=== PATIENT | female | born 1960 | race American Indian/Alaskan Native ===

== ENCOUNTER 2016-09-17 23:45 | Emergency (ER) | payer MEDICAID, OTHER ==
[2016-09-18 00:23] LABS: CHLORIDE,CL 101 mmol/L (101-111); SODIUM,NA 138 mmol/L (135-145)
--- NOTE | 2016-09-18 00:46 | EDM.PDOC ---
ED HISTORY OF PRESENT ILLNESS - General Chief Complaint: Chest Pain Stated Complaint: IN BY AMBULANCE Time Seen by Provider: 09/18/16 00:05 Source of Information: Reports: Patient History Limitations: Reports: No limitations - History of Present Illness INITIAL COMMENTS - FREE TEXT/NARRATIVE: This 56 yo female patient was brought to the ED by [facility] due to chest pain with radiation to her left arm. The patient reports she was at home getting ready for bed when she noticed the chest pain. The patient went to the living room to sit down when she noticed pain going to her left arm and some tingling in her left hand. The patient called a family member and was advised to get to the hospital. Symptom Onset Date: 09/17/16 Symptom Onset Time: 22:30 Timing/Duration: Reports: Constant, Improving Severity: moderate Location, General: Reports: chest, upper extremity, left Quality: Reports: Ache, Dull Improves with: Reports: Medication (Nitro x3 and Morphine given by EMS) Worsens with: Reports: None Context, General: Reports: Other Associated Symptoms (General): Reports: chest pain - Related Data Allergies/ADRs: Allergies Allergy/AdvReac Type Severity Reaction Status Date / Time aspirin Allergy Nausea and Verified 09/17/16 23:53 Vomiting codeine Allergy Rash Verified 09/17/16 23:53 diphenhydramine Allergy Rash Verified 09/17/16 23:53 doxycycline Allergy Rash Verified 09/17/16 23:53 ketorolac tromethamine Allergy Anxiety Verified 09/17/16 23:53 [From Toradol] levofloxacin [From Levaquin] Allergy Rash Verified 09/17/16 23:53 metoclopramide HCl Allergy Anxiety Verified 09/17/16 23:53 [From Reglan] naproxen Allergy Rash Verified 09/17/16 23:53 sumatriptan [From Imitrex] Allergy Other Verified 09/17/16 23:53 sumatriptan succinate Allergy Other Verified 09/17/16 23:53 [From Imitrex] Home Meds: Home Meds Ascorbic Acid [Vitamin C] 1 tab PO DAILY 02/27/14 [History] Hydrochlorothiazide 25 mg PO DAILY 02/27/14 [History] Lisinopril 1 tab PO DAILY 02/27/14 [History] Omeprazole 1 tab PO BID 02/27/14 [History] Potassium Chloride [Klor-Con 10] 10 meq PO DAILY 09/17/16 [History] Past Medical History Cardiovascular History: Reports: Hypertension Gastrointestinal History: Reports: GERD Genitourinary History: Reports: Other (see below) Other Genitourinary History: left kidney removed Other OB/BYN History: complete hysterectomy Musculoskeletal History: Reports: Back pain, chronic - Past Surgical History GI Surgical History: Reports: Appendectomy, Cholecystectomy, Hernia, inguinal, Hernia repair/other Female Surgical History: Reports: Hysterectomy Social & Family History - Tobacco Use Smoking Status *Q: Never Smoker Years of Tobacco use: 15 Packs/Tins Daily: 0.2 Used Tobacco, but Quit: Yes Month Tobacco Last Used: Nov. See notes Second Hand Smoke Exposure: No - Alcohol Use Days Per Week of Alcohol Use: 0 Number of Drinks Per Day: 1 Total Drinks Per Week: 0 - Recreational Drug Use Recreational Drug Use: No ED ROS GENERAL - Review of Systems Review Of Systems: ROS reveals no pertinent complaints other than HPI. ED EXAM, GENERAL - Physical Exam Exam: See Below Exam Limited By: No limitations General Appearance: alert, WD/WN, anxious, moderate distress Eye Exam: bilateral eye: EOMI, normal inspection, PERRL Ears: normal external exam, normal canal, hearing grossly normal, normal TMs Nose: normal inspection, normal mucosa, no blood Throat/Mouth: Normal inspection, Normal lips, Normal teeth, Normal gums, Normal oropharynx, Normal voice, No airway compromise Head: atraumatic, normocephalic Neck: normal inspection, supple, non-tender, full range of motion Respiratory/Chest: no respiratory distress, lungs clear, normal breath sounds, no accessory muscle use, chest non-tender Cardiovascular: normal peripheral pulses, regular rate, rhythm, no edema, no gallop, no JVD, no murmur, no rub GI/Abdominal: normal bowel sounds, soft, non tender, no organomegaly, no distention, no abnormal bruit, no mass (Female) Exam: Deferred Rectal (Female) Exam: Deferred Back Exam: normal inspection, full range of motion, NT Extremities: normal inspection, normal range of motion, non-tender, normal capillary refill, no pedal edema Neurological: alert, oriented, CN II-XII intact, normal cognition, normal gait, normal reflexes, no motor/sensory deficits Psychiatric: normal affect, normal mood Skin Exam: Warm, Dry, Intact, Normal color, No rash Lymphatic: no adenopathy Course - Vital Signs Last Recorded V/S: Last Vital Signs Temp 37.0 C 09/18/16 01:11 Pulse 67 09/18/16 01:11 Resp 16 09/18/16 01:11 BP 100/58 L 09/18/16 01:11 Pulse Ox 100 09/18/16 01:11 - Orders/Labs/Meds Orders: Active Orders 24 hr Category Date Time Status EKG Documentation Completion [RC] ROUTINE Care 09/18/16 03:30 Active EKG Documentation Completion [RC] URGENT Care 09/17/16 23:45 Active Chest 1V Frontal [CR] Urgent Exams 09/18/16 00:07 Taken Labs: Laboratory Tests 09/17/16 09/17/16 09/18/16 Range/Units 23:56 23:56 03:30 WBC 8.0 (5.0-10.0) 10^3/uL RBC 4.40 (4.2-5.4) 10^6/uL Hgb 12.6 (12.0-16.0) g/dL Hct 38.5 (37.0-47.0) % MCV 87.5 (80-100) fL MCH 28.6 (27.0-34.0) pg MCHC 32.7 L (33.0-35.0) g/dL Plt Count 257 (150-450) 10^3/uL Neut % (Auto) 55.0 (42.2-75.2) % Lymph % (Auto) 34.5 (20.5-50.1) % Garrett % (Auto) 6.4 (2-8) % Eos % (Auto) 3.3 H (1.0-3.0) % Baso % (Auto) 0.8 (0.0-1.0) % Sodium 138 (135-145) mmol/L Potassium 3.5 L (3.6-5.0) mmol/L Chloride 101 (101-111) mmol/L Carbon Dioxide 28.0 (21.0-31.0) mmol/L Anion Gap 12.5 BUN 11 (7-18) mg/dL Creatinine 0.9 (0.6-1.3) mg/dL Est Cr Clr Drug Dosing 52.67 mL/min Estimated GFR (MDRD) > 60 BUN/Creatinine Ratio 12.22 Glucose 114 H (74-105) mg/dL Calcium 8.5 (8.4-10.2) mg/dl Total Bilirubin 0.5 (0.2-1.0) mg/dL AST 22 (10-42) IU/L ALT 25 (10-60) IU/L Alkaline Phosphatase 60 (42-121) IU/L Troponin I < 0.02 < 0.02 (0.00-0.02) ng/ml Total Protein 7.2 (6.7-8.2) g/dl Albumin 3.9 (3.2-5.5) g/dl Globulin 3.3 Albumin/Globulin Ratio 1.18 Departure - Departure Time of Disposition: 04:00 Disposition: Home, Self-Care 01 Condition: fair Clinical Impression: Pleuritic pain, Non-cardiac chest pain Instructions: Nonspecific Chest Pain, [id number] Forms: ED Department Discharge Care Plan Goals: The patient was advised of the examination, lab, x-ray, EKG, repeat lab and repeat EKG results during the visit. The patient was encouraged to follow-up with her primary care facility for continued evaluation and further management. If the patient has any additional symptoms or concerns, the patient should follow-up with her primary care facility or return to the emergency department. - My Orders Last 24 Hours: My Active Orders 09/17/16 23:45 EKG Documentation Completion [RC] URGENT 09/18/16 00:07 Chest 1V Frontal [CR] Urgent 09/18/16 03:30 EKG Documentation Completion [RC] ROUTINE - Assessment/Plan Last 24 Hours: My Active Orders 09/17/16 23:45 EKG Documentation Completion [RC] URGENT 09/18/16 00:07 Chest 1V Frontal [CR] Urgent 09/18/16 03:30 EKG Documentation Completion [RC] ROUTINE
[2016-09-18 01:13] VITALS: BP 100/58
--- NOTE | 2016-09-21 12:11 | EKG ---
09/18/2016 - HAWK MONDRAGON - TIME OF EK hours. I reviewed the EKG and agree with the machine's reading. [facility] /[id number]
--- NOTE | 2016-09-21 12:11 | EKG ---
09/17/2016 - HAWK MONDRAGON - TIME: 2494. I reviewed the EKG and agree with the machine's reading. [facility] /[id number]
== END 2016-09-18 04:10 | disposition home or self-care (01) ==
LOC: DL.ED 23:45
DX: R07.81 Pleurodynia (principal); I10 Essential (primary) hypertension; K21.9 Gastro-esophageal reflux disease without esophagitis; Z90.710 Acquired absence of both cervix and uterus; Z79.899 Other long term (current) drug therapy; Z88.5 Allergy status to narcotic agent; Z88.8 Allergy status to other drugs, medicaments and biological substances; Z90.49 Acquired absence of other specified parts of digestive tract; Z88.6 Allergy status to analgesic agent
CPT/HCPCS: 36415; 71010; 80053; 84484; 85025; 93005; 99284

== ENCOUNTER 2017-03-13 20:33 | Emergency (ER) | payer MEDICAID, OTHER ==
[2017-03-13 21:31] VITALS: BP 124/73
== END 2017-03-13 23:15 | disposition left against medical advice (07) ==
LOC: DL.ED 20:33
DX: Z53.21 Procedure and treatment not carried out due to patient leaving prior to being seen by health care provider (principal)

== ENCOUNTER 2017-05-05 21:35 | Emergency (ER) | payer MEDICAID, OTHER ==
[2017-05-05 21:40] VITALS: BP 128/80
[2017-05-05] MEDS ORDERED: Clindamycin HCl 150 MG Cap PO ONE (21:53)
--- NOTE | 2017-05-05 21:58 | EDM.PDOC ---
ED HPI GENERAL MEDICAL PROBLEM - General Chief Complaint: Skin Complaint Stated Complaint: SOMETHING ON HAND, [id number] Time Seen by Provider: 05/05/17 21:54 Source of Information: Reports: Patient History Limitations: Reports: No Limitations - History of Present Illness INITIAL COMMENTS - FREE TEXT/NARRATIVE: got infection right index Right Hand Pain Score (Numeric/FACES): 6 - Related Data Allergies Allergy/AdvReac Type Severity Reaction Status Date / Time aspirin Allergy Nausea and Verified 05/05/17 21:40 Vomiting codeine Allergy Rash Verified 05/05/17 21:40 diphenhydramine Allergy Rash Verified 05/05/17 21:40 doxycycline Allergy Rash Verified 05/05/17 21:40 ketorolac tromethamine Allergy Anxiety Verified 05/05/17 21:40 [From Toradol] levofloxacin [From Levaquin] Allergy Rash Verified 05/05/17 21:40 metoclopramide HCl Allergy Anxiety Verified 05/05/17 21:40 [From Reglan] naproxen Allergy Rash Verified 05/05/17 21:40 sumatriptan [From Imitrex] Allergy Other Verified 05/05/17 21:40 sumatriptan succinate Allergy Other Verified 05/05/17 21:40 [From Imitrex] Home Meds: Home Meds Ascorbic Acid [Vitamin C] 1 tab PO DAILY 02/27/14 [History] Hydrochlorothiazide 25 mg PO DAILY 02/27/14 [History] Lisinopril 1 tab PO DAILY 02/27/14 [History] Omeprazole 1 tab PO BID 02/27/14 [History] Potassium Chloride [Klor-Con 10] 10 meq PO DAILY 09/17/16 [History] Past Medical History Cardiovascular History: Reports: Hypertension Gastrointestinal History: Reports: GERD Genitourinary History: Reports: Other (See Below) Other Genitourinary History: left kidney removed Other OB/BYN History: complete hysterectomy Musculoskeletal History: Reports: Back Pain, Chronic Neurological History: Reports: Migraines - Past Surgical History GI Surgical History: Reports: Appendectomy, Cholecystectomy, Hernia, Inguinal, Hernia Repair/Other Female Surgical History: Reports: Nephrectomy Social & Family History - Family History Family Medical History: Noncontributory - Tobacco Use Smoking Status *Q: Never Smoker Years of Tobacco use: 15 Packs/Tins Daily: 0.2 Used Tobacco, but Quit: Yes Month Tobacco Last Used: Second Hand Smoke Exposure: No - Caffeine Use Caffeine Use: Reports: Coffee - Alcohol Use Days Per Week of Alcohol Use: 0 Number of Drinks Per Day: 1 Total Drinks Per Week: 0 - Recreational Drug Use Recreational Drug Use: No ED ROS GENERAL - Review of Systems Review Of Systems: ROS reveals no pertinent complaints other than HPI. ED EXAM, SKIN/RASH Exam: See Below Exam Limited By: No Limitations General Appearance: Alert, WD/WN, No Apparent Distress Ears: Hearing Grossly Normal Throat/Mouth: Normal Voice, No Airway Compromise Head: Atraumatic Neck: Non-Tender, Full Range of Motion Respiratory/Chest: No Respiratory Distress Cardiovascular: Regular Rate, Rhythm GI/Abdominal: Soft, Non-Tender Extremities: Redness (right index cellulitis), Other Neurological: Alert, Oriented, Normal Cognition, Normal Gait, No Motor/Sensory Deficits Psychiatric: Normal Affect, Normal Mood Skin: Warm, Dry, Normal Color Location, Skin: Upper Extremity, Right Characteristics: Erythematous Associated features: Swelling, Inflammation Lymphatic: No Adenopathy Course - Vital Signs Last Recorded V/S: Last Vital Signs Temp 36.2 C 05/05/17 21:37 Pulse 83 05/05/17 21:37 Resp 18 05/05/17 21:37 BP 128/80 05/05/17 21:37 Pulse Ox 94 L 05/05/17 21:37 - Orders/Labs/Meds Orders: Active Orders 24 hr Category Date Time Status Clindamycin HCl [Cleocin] Med 05/05/17 21:53 Once 150 mg PO ONETIME ONE Departure - Departure Time of Disposition: 21:56 Disposition: Home, Self-Care 01 Condition: Good Clinical Impression: Cellulitis Qualifiers: Site of cellulitis: extremity Site of cellulitis of extremity: finger Laterality: right Qualified Code(s): L03.011 - Cellulitis of right finger - Discharge Information Instructions: Cellulitis, Adult, [id number] Additional Instructions: 1) keep sore clean dry covered 2) recheck if not significantly better in 48 hours 3) sooner if looks worse rx given; clindamycin 150mg qid x 40 - My Orders Last 24 Hours: My Active Orders 05/05/17 21:53 Clindamycin HCl [Cleocin] 150 mg PO ONETIME ONE - Assessment/Plan Last 24 Hours: My Active Orders 05/05/17 21:53 Clindamycin HCl [Cleocin] 150 mg PO ONETIME ONE
== END 2017-05-05 22:02 | disposition home or self-care (01) ==
LOC: DL.ED 21:35
DX: L03.011 Cellulitis of right finger (principal); I10 Essential (primary) hypertension; Z88.6 Allergy status to analgesic agent; Z88.5 Allergy status to narcotic agent; Z88.1 Allergy status to other antibiotic agents; Z88.8 Allergy status to other drugs, medicaments and biological substances; Z79.899 Other long term (current) drug therapy
CPT/HCPCS: 99283; A9270

== ENCOUNTER 2017-10-26 12:17 | Emergency (ER) | payer MEDICAID, OTHER ==
[2017-10-26 12:42] VITALS: BP 123/76
[2017-10-26] MEDS ORDERED: Sodium Chloride 0.9% 10 ML Syringe FLUSH PRN (12:46)
[2017-10-26] MEDS ORDERED: Sodium Chloride 0.9% 1,000 ML IV ONE (12:47)
[2017-10-26] MEDS ORDERED: Ondansetron 4 MG/2 ML SDV IV ONE (12:49)
[2017-10-26 13:27] LABS: CHLORIDE,CL 99 mmol/L (101-111); SODIUM,NA 136 mmol/L (135-145)
[2017-10-26] MEDS ORDERED: Morphine 10 MG/ML Syringe IVPUSH ONE (13:50)
--- NOTE | 2017-10-26 13:54 | EDM.PDOC ---
Scribed by Veronica Baker 10/26/17 1349 for Alex Dowling MD ED HPI GENERAL MEDICAL PROBLEM - General Chief Complaint: Gastrointestinal Problem Stated Complaint: [id number] FOOD POISIONING Time Seen by Provider: 10/26/17 12:30 Source of Information: Reports: Patient, RN, RN Notes Reviewed History Limitations: Reports: No Limitations - History of Present Illness INITIAL COMMENTS - FREE TEXT/NARRATIVE: Patient presents to ER from home by POV with complaint of onset of generalized abdominal cramping followed by nausea, vomiting and diarrhea late last night. She admits to some chills associated with vomiting. Denies fever. She [place] [employer] [place] and [place]. Patient believes that she has food poisoning. No known sick contacts. Onset: Gradual Duration: Getting Worse Location: Reports: Abdomen Quality: Reports: Ache Severity: Moderate Improves with: Reports: None Worsens with: Reports: None Associated Symptoms: Reports: No Other Symptoms Middle Abdominal Pain Score (Numeric/FACES): 7 - Related Data Allergies Allergy/AdvReac Type Severity Reaction Status Date / Time aspirin Allergy Nausea and Verified 05/05/17 21:40 Vomiting codeine Allergy Rash Verified 05/05/17 21:40 diphenhydramine Allergy Rash Verified 05/05/17 21:40 doxycycline Allergy Rash Verified 05/05/17 21:40 ketorolac tromethamine Allergy Anxiety Verified 05/05/17 21:40 [From Toradol] levofloxacin [From Levaquin] Allergy Rash Verified 05/05/17 21:40 metoclopramide HCl Allergy Anxiety Verified 05/05/17 21:40 [From Reglan] naproxen Allergy Rash Verified 05/05/17 21:40 sumatriptan [From Imitrex] Allergy Other Verified 05/05/17 21:40 sumatriptan succinate Allergy Other Verified 05/05/17 21:40 [From Imitrex] Home Meds: Home Meds Ascorbic Acid [Vitamin C] 1 tab PO DAILY 02/27/14 [History] Hydrochlorothiazide 25 mg PO DAILY 02/27/14 [History] Lisinopril 1 tab PO DAILY 02/27/14 [History] Omeprazole 1 tab PO BID 02/27/14 [History] Potassium Chloride [Klor-Con 10] 10 meq PO DAILY 09/17/16 [History] Past Medical History Cardiovascular History: Reports: Hypertension Gastrointestinal History: Reports: GERD Genitourinary History: Reports: Other (See Below) Other Genitourinary History: left kidney removed Other OB/BYN History: complete hysterectomy Musculoskeletal History: Reports: Back Pain, Chronic Neurological History: Reports: Migraines - Past Surgical History GI Surgical History: Reports: Appendectomy, Cholecystectomy, Hernia, Inguinal, Hernia Repair/Other Female Surgical History: Reports: Nephrectomy Social & Family History - Family History Family Medical History: Noncontributory - Caffeine Use Caffeine Use: Reports: Coffee ED ROS GENERAL - Review of Systems Review Of Systems: ROS reveals no pertinent complaints other than HPI. ED EXAM, GI/ABD - Physical Exam Exam: See Below Exam Limited By: No Limitations General Appearance: Alert, No Apparent Distress, Other (uncomfortable but nontoxic appearing. ) Eyes: Bilateral: Normal Appearance (no scleral icterus) Ears: Normal External Exam, Normal Canal, Hearing Grossly Normal, Normal TMs Throat/Mouth: Normal Lips, Normal Voice, No Airway Compromise, Other (dry oral membranes) Head: Atraumatic, Normocephalic Neck: Normal Inspection, Supple, Non-Tender, Full Range of Motion Respiratory/Chest: No Respiratory Distress, Lungs Clear, Normal Breath Sounds, No Accessory Muscle Use, Chest Non-Tender Cardiovascular: Normal Peripheral Pulses, Regular Rate, Rhythm, No Edema, No Gallop, No JVD, No Murmur, No Rub GI/Abdominal Exam: Soft, No Distention, Tender (mild generalized abdominal tenderness), Abnormal Bowel Sounds (hyperactive bowel sounds). No: Guarding, Rigid, Rebound (Female) Exam: Deferred Rectal (Female) Exam: Deferred Back Exam: Normal Inspection, Full Range of Motion. No: CVA Tenderness (L), CVA Tenderness (R) Extremities: Normal Inspection, Non-Tender, No Pedal Edema, Normal Capillary Refill Neurological: Alert, Oriented, CN II-XII Intact, Normal Cognition, Normal Gait, No Motor/Sensory Deficits Psychiatric: Normal Affect, Normal Mood Skin Exam: Warm, Dry, Intact, Normal Color, No Rash Course - Vital Signs Last Recorded V/S: Last Vital Signs Temp 37.4 C 10/26/17 12:31 Pulse 89 10/26/17 12:31 Resp 18 10/26/17 12:31 BP 123/76 10/26/17 12:31 Pulse Ox 98 10/26/17 12:31 - Orders/Labs/Meds Orders: Active Orders 24 hr Category Date Time Status Peripheral IV Care [RC] . DIRECTED Care 10/26/17 12:47 Active UA W/MICROSCOPIC [URIN] Stat Lab 10/26/17 12:46 Ordered Sodium Chloride 0.9% [Saline Flush] Med 10/26/17 12:46 Active 10 ml FLUSH ASDIRECTED PRN Peripheral IV Insertion Adult [OM.PC] Stat Oth 10/26/17 12:46 Ordered Medication Orders Sodium Chloride (Saline Flush) 10 ml FLUSH ASDIRECTED PRN PRN Reason: Keep Vein Open Last Admin: 10/26/17 13:09 Dose: 10 ml Labs: Laboratory Tests 10/26/17 10/26/17 Range/Units 13:01 13:01 WBC 9.3 (5.0-10.0) 10^3/uL RBC 5.29 (4.2-5.4) 10^6/uL Hgb 15.1 D (12.0-16.0) g/dL Hct 44.6 (37.0-47.0) % MCV 84.3 D (80-100) fL MCH 28.5 (27.0-34.0) pg MCHC 33.9 (33.0-35.0) g/dL Plt Count 206 (150-450) 10^3/uL Neut % (Auto) 83.7 H (42.2-75.2) % Lymph % (Auto) 10.2 L (20.5-50.1) % Jennings % (Auto) 5.1 (2-8) % Eos % (Auto) 0.9 L (1.0-3.0) % Baso % (Auto) 0.1 (0.0-1.0) % Sodium 136 (135-145) mmol/L Potassium 3.8 (3.6-5.0) mmol/L Chloride 99 L (101-111) mmol/L Carbon Dioxide 30.0 (21.0-31.0) mmol/L Anion Gap 10.8 BUN 10 (7-18) mg/dL Creatinine 0.8 (0.6-1.3) mg/dL Est Cr Clr Drug Dosing 58.55 mL/min Estimated GFR (MDRD) > 60 BUN/Creatinine Ratio 12.50 Glucose 125 H (74-105) mg/dL Calcium 8.4 (8.4-10.2) mg/dl Total Bilirubin 1.0 (0.2-1.0) mg/dL AST 23 (10-42) IU/L ALT 21 (10-60) IU/L Alkaline Phosphatase 71 (42-121) IU/L Total Protein 7.5 (6.7-8.2) g/dl Albumin 3.8 (3.2-5.5) g/dl Globulin 3.7 Albumin/Globulin Ratio 1.03 Amylase 22 L (28-100) U/L Lipase 25 (22-51) U/L Meds: Medications Generic Name Dose Route Start Last Admin Trade Name Freq PRN Reason Stop Dose Admin Sodium Chloride 10 ml 10/26/17 12:46 10/26/17 13:09 Saline Flush FLUSH 10 ml ASDIRECTED PRN Administration Keep Vein Open Discontinued Medications Generic Name Dose Route Start Last Admin Trade Name Freq PRN Reason Stop Dose Admin Sodium Chloride 1,000 mls @ 999 mls/hr 10/26/17 12:47 10/26/17 13:09 Normal Saline IV 10/26/17 13:47 999 mls/hr .BOLUS ONE Administration Morphine Sulfate 5 mg 10/26/17 13:50 Morphine IVPUSH 10/26/17 13:51 ONETIME ONE Ondansetron HCl 4 mg 10/26/17 12:49 10/26/17 13:10 Zofran IV 10/26/17 12:50 4 mg ONETIME ONE Administration Departure - Departure Time of Disposition: 13:10 Disposition: Home, Self-Care 01 Condition: Fair Clinical Impression: Abdominal pain Qualifiers: Abdominal location: generalized Qualified Code(s): R10.84 - Generalized abdominal pain Food poisoning Qualifiers: Encounter type: initial encounter Injury intent: accidental or unintentional Qualified Code(s): T62.91XA - Toxic effect of unspecified noxious substance eaten as food, accidental (unintentional), initial encounter - Discharge Information Instructions: Abdominal Pain, Adult, Food Poisoning, [id number] Forms: ED Department Discharge Additional Instructions: RX: Promethazine 25mg. *DO NOT DRIVE while under the influence of this medication. RX: Dicyclomine 20mg. *DO NOT DRIVE while under the influence of this medication. Clear liquid diet until nausea and vomiting resolve and then advance to soft bland diet as tolerated. Follow up in clinic if not improving in 2 days. - My Orders Last 24 Hours: My Active Orders 10/26/17 12:46 UA W/MICROSCOPIC [URIN] Stat Sodium Chloride 0.9% [Saline Flush] 10 ml FLUSH ASDIRECTED PRN Peripheral IV Insertion Adult [OM.PC] Stat 10/26/17 12:47 Peripheral IV Care [RC] . DIRECTED - Assessment/Plan Last 24 Hours: My Active Orders 10/26/17 12:46 UA W/MICROSCOPIC [URIN] Stat Sodium Chloride 0.9% [Saline Flush] 10 ml FLUSH ASDIRECTED PRN Peripheral IV Insertion Adult [OM.PC] Stat 10/26/17 12:47 Peripheral IV Care [RC] . DIRECTED I have read and agree with the documentation that has been completed regarding this visit. By signing this record, I attest that the documentation was completed in my physical presence and is an accurate record of the encounter.
== END 2017-10-26 14:21 | disposition home or self-care (01) ==
LOC: DL.ED 12:17
DX: T62.91XA Toxic effect of unspecified noxious substance eaten as food, accidental (unintentional), initial encounter (principal); I10 Essential (primary) hypertension; K21.9 Gastro-esophageal reflux disease without esophagitis; Z88.6 Allergy status to analgesic agent; Z88.5 Allergy status to narcotic agent; Z88.1 Allergy status to other antibiotic agents; Z88.8 Allergy status to other drugs, medicaments and biological substances; Z79.899 Other long term (current) drug therapy
CPT/HCPCS: 36415; 80053; 82150; 83690; 85025; 96361; 96374; 96375; 99284; J2270; J2405; J7030; J7050

== ENCOUNTER 2018-06-27 03:13 | Emergency (ER) | payer OTHER ==
[2018-06-27] MEDS ORDERED: Sodium Chloride 0.9% 1,000 ML IV ONE (03:32)
[2018-06-27] MEDS ORDERED: Sodium Chloride 0.9% 10 ML Syringe FLUSH PRN (03:32)
[2018-06-27] MEDS ORDERED: HYDROmorphone 1 MG/ML Syringe IVPUSH ONE ×2 (03:32→05:06)
--- NOTE | 2018-06-27 03:41 | EDM.PDOC ---
ED HPI GENERAL MEDICAL PROBLEM - General Chief Complaint: Genitourinary Problem Stated Complaint: AMBULANCE-UNKNOWN Time Seen by Provider: 06/27/18 03:20 Source of Information: Reports: Patient, EMS, EMS Notes Reviewed, RN, RN Notes Reviewed History Limitations: Reports: No Limitations - History of Present Illness INITIAL COMMENTS - FREE TEXT/NARRATIVE: Pt to ER per [facility] with c/o severe right flank pain. She rates the pain 9/10. She states she began drinking a lot of water and cranberry juice yesterday as she felt as though she was beginning to get a UTI. She states the pain increased throughout the evening and at about 0030 she began having severe sharp pain in the right lower back/flank area. Patient admits chills, but no fever. She also admits to N/V/D yesterday/today. She states she has a cyst on the right kidney. 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: Acetaminophen Right Flank Pain Score (Numeric/FACES): 10 - Related Data Allergies Allergy/AdvReac Type Severity Reaction Status Date / Time aspirin Allergy Nausea and Verified 06/27/18 03:35 Vomiting codeine Allergy Rash Verified 06/27/18 03:35 diphenhydramine Allergy Rash Verified 06/27/18 03:35 doxycycline Allergy Rash Verified 06/27/18 03:35 ketorolac tromethamine Allergy Anxiety Verified 06/27/18 03:35 [From Toradol] levofloxacin [From Levaquin] Allergy Rash Verified 06/27/18 03:35 metoclopramide HCl Allergy Anxiety Verified 06/27/18 03:35 [From Reglan] naproxen Allergy Rash Verified 06/27/18 03:35 sumatriptan [From Imitrex] Allergy Other Verified 06/27/18 03:35 sumatriptan succinate Allergy Other Verified 06/27/18 03:35 [From Imitrex] Home Meds: Home Meds Ascorbic Acid [Vitamin C] 1 tab PO DAILY 02/27/14 [History] Lisinopril 1 tab PO DAILY 02/27/14 [History] Omeprazole 1 tab PO BID 02/27/14 [History] hydroCHLOROthiazide [Hydrochlorothiazide] 25 mg PO DAILY 02/27/14 [History] Potassium Chloride [Klor-Con 10] 10 meq PO DAILY 09/17/16 [History] Past Medical History HEENT History: Reports: Impaired Vision Cardiovascular History: Reports: Hypertension Gastrointestinal History: Reports: GERD Genitourinary History: Reports: Other (See Below) Other Genitourinary History: left kidney removed 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 Neck surgery in May 28, 2018 Social & Family History - Family History Family Medical History: Noncontributory - Tobacco Use Smoking Status *Q: Former Smoker Used Tobacco, but Quit: No - Caffeine Use Caffeine Use: Reports: Coffee, Soda Caffeine Use Comment: 1 cup coffee in the morning - Recreational Drug Use Recreational Drug Use: No ED ROS GENERAL - Review of Systems Review Of Systems: ROS reveals no pertinent complaints other than HPI. ED EXAM, RENAL/ - Physical Exam Exam: See Below Exam Limited By: No Limitations General Appearance: Alert, WD/WN, Moderate Distress Eye Exam: Bilateral Eye: EOMI, Normal Inspection Ears: Normal External Exam, Hearing Grossly Normal Nose: Normal Inspection Throat/Mouth: Normal Inspection, Normal Voice, No Airway Compromise Head: Atraumatic, Normocephalic Neck: Normal Inspection, Supple, Full Range of Motion, Limited Range of Motion, Tender Lateral, Tender Midline Respiratory/Chest: No Respiratory Distress, Lungs Clear, Normal Breath Sounds Cardiovascular: Normal Peripheral Pulses, Regular Rate, Rhythm, No Edema, No Gallop, No JVD, No Murmur, No Rub GI/Abdominal: Normal Bowel Sounds, Soft, Tender (RLQ) (Female) Exam: Deferred Rectal (Female) Exam: Deferred Back Exam: Normal Inspection, CVA Tenderness (R), Decreased Range of Motion Extremities: Normal Inspection, Normal Range of Motion, Non-Tender, No Pedal Edema, Normal Capillary Refill Neurological: Alert, Oriented, CN II-XII Intact, Normal Cognition, Normal Gait, Normal Reflexes, No Motor/Sensory Deficits Psychiatric: Anxious, Tearful Skin Exam: Warm, Dry, Intact, Normal Color, No Rash Lymphatic: No Adenopathy Course - Vital Signs Last Recorded V/S: Last Vital Signs Temp 97.2 F 06/27/18 06:14 Pulse 76 06/27/18 06:14 Resp 18 06/27/18 06:14 BP 126/87 06/27/18 06:14 Pulse Ox 99 06/27/18 06:14 - Orders/Labs/Meds Orders: Active Orders 24 hr Category Date Time Status Peripheral IV Care [RC] . DIRECTED Care 06/27/18 03:35 Active Abdomen Pelvis wo Cont [CT] Urgent Exams 06/27/18 03:56 Taken Sodium Chloride 0.9% [Saline Flush] Med 06/27/18 03:32 Active 10 ml FLUSH ASDIRECTED PRN Peripheral IV Insertion Adult [OM.PC] Stat Oth 06/27/18 03:32 Ordered Medication Orders Sodium Chloride (Saline Flush) 10 ml FLUSH ASDIRECTED PRN PRN Reason: Keep Vein Open Last Admin: 06/27/18 03:37 Dose: 10 ml Labs: Laboratory Tests 06/27/18 06/27/18 06/27/18 Range/Units 03:25 03:25 05:12 WBC 7.2 (5.0-10.0) 10^3/uL RBC 5.29 (4.2-5.4) 10^6/uL Hgb 15.0 (12.0-16.0) g/dL Hct 43.8 (37.0-47.0) % MCV 82.8 (80-100) fL MCH 28.4 (27.0-34.0) pg MCHC 34.2 (33.0-35.0) g/dL Plt Count 307 D (150-450) 10^3/uL Neut % (Auto) 63.7 (42.2-75.2) % Lymph % (Auto) 27.0 (20.5-50.1) % [place] % (Auto) 6.9 (2-8) % Eos % (Auto) 1.8 (1.0-3.0) % Baso % (Auto) 0.6 (0.0-1.0) % Sodium 137 (135-145) mmol/L Potassium 3.3 L (3.6-5.0) mmol/L Chloride 100 L (101-111) mmol/L Carbon Dioxide 26.0 (21.0-31.0) mmol/L Anion Gap 14.3 BUN 6 L (7-18) mg/dL Creatinine 0.7 (0.6-1.3) mg/dL Est Cr Clr Drug Dosing 66.10 mL/min Estimated GFR (MDRD) > 60 BUN/Creatinine Ratio 8.57 Glucose 117 H (74-105) mg/dL Calcium 9.1 (8.4-10.2) mg/dl Total Bilirubin 0.7 (0.2-1.0) mg/dL AST 26 (10-42) IU/L ALT 24 (10-60) IU/L Alkaline Phosphatase 79 (42-121) IU/L Total Protein 7.9 (6.7-8.2) g/dl Albumin 4.2 (3.2-5.5) g/dl Globulin 3.7 Albumin/Globulin Ratio 1.14 Urine Color Yellow (YELLOW) Urine Appearance Clear (CLEAR) Urine pH 6.0 (5.0-9.0) Ur Specific [place] <= 1.005 (1.005-1.030) Urine Protein Negative (NEGATIVE) Urine Glucose (UA) Negative (NEGATIVE) Urine Ketones Negative (NEGATIVE) Urine Occult Blood Trace-intact H (NEGATIVE) Urine Nitrite Negative (NEGATIVE) Urine Bilirubin Negative (NEGATIVE) Urine Urobilinogen 0.2 (0.2-1.0) mg/dL Ur Leukocyte Esterase Negative (NEGATIVE) Urine RBC 0-5 /HPF Urine WBC 0-5 (0-5/HPF) /HPF Ur Epithelial Cells Few /HPF Urine Bacteria Few (0-FEW/HPF) /HPF Meds: Medications Generic Name Dose Route Start Last Admin Trade Name Freq PRN Reason Stop Dose Admin Sodium Chloride 10 ml 06/27/18 03:32 06/27/18 03:37 Saline Flush FLUSH 10 ml ASDIRECTED PRN Administration Keep Vein Open Discontinued Medications Generic Name Dose Route Start Last Admin Trade Name Freq PRN Reason Stop Dose Admin Hydromorphone HCl 1 mg 06/27/18 03:32 06/27/18 03:38 Dilaudid IVPUSH 06/27/18 03:33 1 mg ONETIME ONE Administration Hydromorphone HCl 1 mg 06/27/18 05:06 06/27/18 05:19 Dilaudid IVPUSH 06/27/18 05:07 1 mg ONETIME ONE Administration Sodium Chloride 1,000 mls @ 999 mls/hr 06/27/18 03:32 06/27/18 03:37 Normal Saline IV 06/27/18 04:32 999 mls/hr .BOLUS ONE Administration - Radiology Interpretation Free Text/Narrative:: CT Abdomen/Pelvis without contrast: FINDINGS: Lower thorax: A 2.4 cm bleb is seen within the left costophrenic sulcus, not significantly changed. Mild dependent atelectasis is present. ABDOMEN: Liver: There is moderate, diffuse hepatic steatosis. Gallbladder and bile ducts: The patient is status post cholecystectomy. Pancreas: Normal. No ductal dilation. Spleen: Normal. No splenomegaly. Adrenals: Normal. No mass. Kidneys and ureters: Large right renal cysts are again noted. The largest cyst measures 7.4 cm in diameter, increased from 6.5 cm on the prior exam. A second smaller parapelvic cyst is also seen. No nephroliths are seen. The left kidney is surgically absent. Stomach and bowel: Moderate diverticulosis is present in the sigmoid and descending colon. No bowel distention or wall thickening. Appendix: No evidence of appendicitis. PELVIS: Bladder: Unremarkable as visualized. Reproductive: Unremarkable as visualized. ABDOMEN and PELVIS: Intraperitoneal space: Normal. No free air. No significant fluid collection. Bones/joints: Mild spondylitic changes are present within the spine. No acute osseous injury is noted. Soft tissues: Unremarkable. Vasculature: Mild calcific atherosclerosis is noted involving the aortoiliac tree. The aorta is not enlarged. Lymph nodes: Normal. No enlarged lymph nodes. IMPRESSION: 1. Moderate hepatic steatosis. 2. Large right renal cysts, redemonstrated. 3. Moderate diverticulosis. COMMENT: Consistent with the [employer]'s Incidental Findings Committee Report (J Am Jhonatan Radiol 2010): Unless the patient's specific circumstances suggest otherwise , any liver lesion 0.5 cm or less, any cystic kidney lesion less than 1.0 cm, and/or any adrenal lesion 1.0 cm or less not otherwise characterized in this report as possessing suspicious or indeterminate imaging features is/are highly likely to be benign and do not require follow-up imaging or biopsy. Thank you for allowing us to participate in the care of your patient. Dictated and Authenticated by: El Vigil MD 06/27/2018 4:55 AM Central Time ([place] & [place]) See rad report - Re-Assessments/Exams Free Text/Narrative Re-Assessment/Exam: 06/27/18 06:08 Discussed findings of lab results and CT with the patient. She states understanding. Patient encouraged to follow up with [facility] this morning for referral to urologist previously seen in [place]. Patient states understanding. Departure - Departure Time of Disposition: 07:03 Disposition: Home, Self-Care 01 Condition: Fair Clinical Impression: Hepatic steatosis, Renal cyst, right, Right flank pain Diverticulosis Qualifiers: Diverticulosis site: unspecified location Diverticulosis bleeding: diverticulosis without bleeding Qualified Code(s): K57.90 - Diverticulosis of intestine, part unspecified, without perforation or abscess without bleeding - Discharge Information *PRESCRIPTION DRUG MONITORING PROGRAM REVIEWED*: No *COPY OF PRESCRIPTION DRUG MONITORING REPORT IN PATIENT GARRY: No Instructions: Flank Pain, Adult, [id number], Nonalcoholic Fatty Liver Disease Diet Forms: ED Department Discharge Additional Instructions: Follow up with your primary care facility for referral to Urology May use Tylenol as directed for pain Drink plenty of water - My Orders Last 24 Hours: My Active Orders 06/27/18 03:32 Sodium Chloride 0.9% [Saline Flush] 10 ml FLUSH ASDIRECTED PRN Peripheral IV Insertion Adult [OM.PC] Stat 06/27/18 03:35 Peripheral IV Care [RC] . DIRECTED 06/27/18 03:56 Abdomen Pelvis wo Cont [CT] Urgent - Assessment/Plan Last 24 Hours: My Active Orders 06/27/18 03:32 Sodium Chloride 0.9% [Saline Flush] 10 ml FLUSH ASDIRECTED PRN Peripheral IV Insertion Adult [OM.PC] Stat 06/27/18 03:35 Peripheral IV Care [RC] . DIRECTED 06/27/18 03:56 Abdomen Pelvis wo Cont [CT] Urgent
[2018-06-27 03:54] LABS: ANION GAP 14.3; CHLORIDE,CL 100 mmol/L (101-111); SODIUM,NA 137 mmol/L (135-145)
[2018-06-27 06:15] VITALS: BP 126/87
== END 2018-06-27 07:15 | disposition home or self-care (01) ==
LOC: DL.ED 03:13
DX: K57.30 Diverticulosis of large intestine without perforation or abscess without bleeding (principal); K76.0 Fatty (change of) liver, not elsewhere classified; N28.1 Cyst of kidney, acquired; I10 Essential (primary) hypertension; K21.9 Gastro-esophageal reflux disease without esophagitis; Z87.891 Personal history of nicotine dependence; Z88.6 Allergy status to analgesic agent; Z88.5 Allergy status to narcotic agent; Z88.8 Allergy status to other drugs, medicaments and biological substances; Z79.899 Other long term (current) drug therapy
CPT/HCPCS: 36415; 74176; 80053; 81001; 85025; 96361; 96374; 96376; 99285; J1170; J7030

== ENCOUNTER 2018-07-04 16:10 | Emergency (ER) | payer OTHER ==
[2018-07-04] MEDS ORDERED: Sodium Chloride 0.9% 10 ML Syringe FLUSH PRN (16:50)
[2018-07-04] MEDS ORDERED: Ondansetron 4 MG/2 ML SDV IV ONE (16:50)
[2018-07-04] MEDS ORDERED: Sodium Chloride 0.9% 1,000 ML IV ONE ×2 (16:50→18:26)
[2018-07-04] MEDS ORDERED: HYDROmorphone 1 MG/ML Syringe IVPUSH ONE ×3 (16:52→21:32)
[2018-07-04 17:41] LABS: ANION GAP 16.6; CHLORIDE,CL 99 mmol/L (101-111); SODIUM,NA 137 mmol/L (135-145)
[2018-07-04] MEDS ORDERED: Iopamidol 612 MG/ML 75 ML Bottle IVPUSH ONE (18:02)
--- NOTE | 2018-07-04 18:44 | EDM.PDOC ---
Scribed by Veronica Baker 07/04/18 1843 for Bhavani Wheat NP <Bhavani Wheat - Last Filed: 07/04/18 18:55> ED HPI GENERAL MEDICAL PROBLEM - General Chief Complaint: Genitourinary Problem Stated Complaint: THROWING UP CRAMPING IN STOMACH [id number] Time Seen by Provider: 07/04/18 16:44 Source of Information: Reports: Patient, RN, RN Notes Reviewed History Limitations: Reports: No Limitations - History of Present Illness INITIAL COMMENTS - FREE TEXT/NARRATIVE: Patient presents to ER with complaint of severe right flank pain. Patient was seen 1 week ago in ER for same pain. She states she keeps calling [facility] for referral, but has gotten no where. She has had nausea, vomiting, fever and chills. Onset: Gradual Duration: Getting Worse Location: Reports: Other (flank) Quality: Reports: Ache Severity: Moderate Improves with: Reports: None Worsens with: Reports: None Associated Symptoms: Reports: No Other Symptoms - Related Data Allergies Allergy/AdvReac Type Severity Reaction Status Date / Time aspirin Allergy Nausea and Verified 07/04/18 17:35 Vomiting codeine Allergy Rash Verified 07/04/18 17:35 diphenhydramine Allergy Rash Verified 07/04/18 17:35 doxycycline Allergy Rash Verified 07/04/18 17:35 ketorolac tromethamine Allergy Anxiety Verified 07/04/18 17:35 [From Toradol] levofloxacin [From Levaquin] Allergy Rash Verified 07/04/18 17:35 metoclopramide HCl Allergy Anxiety Verified 07/04/18 17:35 [From Reglan] naproxen Allergy Rash Verified 07/04/18 17:35 sumatriptan [From Imitrex] Allergy Other Verified 07/04/18 17:35 sumatriptan succinate Allergy Other Verified 07/04/18 17:35 [From Imitrex] Home Meds: Home Meds Ascorbic Acid [Vitamin C] 1 tab PO DAILY 02/27/14 [History] Lisinopril 1 tab PO DAILY 02/27/14 [History] Omeprazole 1 tab PO BID 02/27/14 [History] hydroCHLOROthiazide [Hydrochlorothiazide] 25 mg PO DAILY 02/27/14 [History] Potassium Chloride [Klor-Con 10] 10 meq PO DAILY 09/17/16 [History] Past Medical History HEENT History: Reports: Impaired Vision Cardiovascular History: Reports: Hypertension Gastrointestinal History: Reports: GERD Genitourinary History: Reports: Other (See Below) Other Genitourinary History: left kidney removed CLINICAL DOCUMENTATION NURSE History: Reports: Other (See Below) Other CLINICAL DOCUMENTATION NURSE History: complete hysterectomy Musculoskeletal History: Reports: Back Pain, Chronic Neurological History: Reports: Migraines - Past Surgical History GI Surgical History: Reports: Appendectomy, Cholecystectomy, Hernia, Inguinal, Hernia Repair/Other Female Surgical History: Reports: Nephrectomy Musculoskeletal Surgical History: Reports: Arthroscopic Knee, Shoulder Surgery, Other (See Below) Other Musculoskeletal Surgeries/Procedures:: ankle left, torn meniscus bilateral , back surgery 2018. Neck surgery in May 28, 2018 Social & Family History - Family History Family Medical History: Noncontributory - Caffeine Use Caffeine Use: Reports: Coffee, Soda Caffeine Use Comment: 1 cup coffee in the morning ED ROS GENERAL - Review of Systems Review Of Systems: ROS reveals no pertinent complaints other than HPI. ED EXAM, GI/ABD - Physical Exam Exam: See Below Exam Limited By: No Limitations General Appearance: Moderate Distress, Other (in pain crying. ) Eyes: Bilateral: Pale Conjunctiva (conjuntival injection bilateral) Ears: Normal External Exam, Normal Canal, Hearing Grossly Normal, Normal TMs Nose: Normal Inspection, Normal Mucosa, No Blood Throat/Mouth: Normal Inspection, Normal Lips, Normal Teeth, Normal Gums, Normal Oropharynx, Normal Voice, No Airway Compromise Head: Atraumatic, Normocephalic Neck: Normal Inspection, Supple, Non-Tender, Full Range of Motion Respiratory/Chest: Lungs Clear Cardiovascular: Regular Rate, Rhythm GI/Abdominal Exam: Normal Bowel Sounds, Soft, Non-Tender, No Organomegaly, No Distention, No Abnormal Bruit, No Mass, Pelvis Stable (Female) Exam: Deferred Rectal (Female) Exam: Deferred Back Exam: Normal Inspection, Full Range of Motion, NT Extremities: Normal Inspection, Normal Range of Motion, Non-Tender, Normal Capillary Refill, No Pedal Edema Neurological: Alert, Oriented, CN II-XII Intact, Normal Cognition, Normal Gait, Normal Reflexes, No Motor/Sensory Deficits Psychiatric: Normal Affect, Normal Mood Skin Exam: Warm, Dry, Intact, Normal Color, No Rash Course - Vital Signs Last Recorded V/S: Last Vital Signs Temp 36.9 C 07/04/18 18:59 Pulse 88 07/04/18 18:59 Resp 14 07/04/18 18:59 BP 143/88 H 07/04/18 18:59 Pulse Ox 97 07/04/18 18:59 - Orders/Labs/Meds Orders: Active Orders 24 hr Category Date Time Status Peripheral IV Care [RC] . DIRECTED Care 07/04/18 16:51 Active Sodium Chloride 0.9% [Saline Flush] Med 07/04/18 16:50 Active 10 ml FLUSH ASDIRECTED PRN Peripheral IV Insertion Adult [OM.PC] Stat Oth 07/04/18 16:48 Ordered Medication Orders Sodium Chloride (Saline Flush) 10 ml FLUSH ASDIRECTED PRN PRN Reason: Keep Vein Open Last Admin: 07/04/18 17:21 Dose: 10 ml Labs: Laboratory Tests 07/04/18 07/04/18 07/04/18 Range/Units 17:12 17:12 17:12 WBC 13.5 H (5.0-10.0) 10^3/uL RBC 5.97 H (4.2-5.4) 10^6/uL Hgb 16.7 H D (12.0-16.0) g/dL Hct 49.5 H (37.0-47.0) % MCV 82.9 (80-100) fL MCH 28.0 (27.0-34.0) pg MCHC 33.7 (33.0-35.0) g/dL Plt Count 334 (150-450) 10^3/uL Neut % (Auto) 82.2 H (42.2-75.2) % Lymph % (Auto) 11.7 L (20.5-50.1) % [place] % (Auto) 5.2 (2-8) % Eos % (Auto) 0.6 L (1.0-3.0) % Baso % (Auto) 0.3 (0.0-1.0) % Sodium 137 (135-145) mmol/L Potassium 3.6 (3.6-5.0) mmol/L Chloride 99 L (101-111) mmol/L Carbon Dioxide 25.0 (21.0-31.0) mmol/L Anion Gap 16.6 BUN 11 (7-18) mg/dL Creatinine 0.9 (0.6-1.3) mg/dL Est Cr Clr Drug Dosing 51.41 mL/min Estimated GFR (MDRD) > 60 BUN/Creatinine Ratio 12.22 Glucose 132 H (74-105) mg/dL Lactic Acid 1.6 (0.5-2.2) mmol/L Calcium 9.4 (8.4-10.2) mg/dl Total Bilirubin 1.0 (0.2-1.0) mg/dL AST 29 (10-42) IU/L ALT 25 (10-60) IU/L Alkaline Phosphatase 79 (42-121) IU/L Total Protein 8.7 H (6.7-8.2) g/dl Albumin 4.5 (3.2-5.5) g/dl Globulin 4.2 Albumin/Globulin Ratio 1.07 Amylase 27 L (28-100) U/L Lipase 31 (22-51) U/L Urine Color (YELLOW) Urine Appearance (CLEAR) Urine pH (5.0-9.0) Ur Specific [place] (1.005-1.030) Urine Protein (NEGATIVE) Urine Glucose (UA) (NEGATIVE) Urine Ketones (NEGATIVE) Urine Occult Blood (NEGATIVE) Urine Nitrite (NEGATIVE) Urine Bilirubin (NEGATIVE) Urine Urobilinogen (0.2-1.0) mg/dL Ur Leukocyte Esterase (NEGATIVE) Urine RBC /HPF Urine WBC (0-5/HPF) /HPF Ur Epithelial Cells /HPF Amorphous Sediment (0/HPF) /HPF Urine Bacteria (0-FEW/HPF) /HPF 07/04/18 Range/Units 18:49 WBC (5.0-10.0) 10^3/uL RBC (4.2-5.4) 10^6/uL Hgb (12.0-16.0) g/dL Hct (37.0-47.0) % MCV (80-100) fL MCH (27.0-34.0) pg MCHC (33.0-35.0) g/dL Plt Count (150-450) 10^3/uL Neut % (Auto) (42.2-75.2) % Lymph % (Auto) (20.5-50.1) % [place] % (Auto) (2-8) % Eos % (Auto) (1.0-3.0) % Baso % (Auto) (0.0-1.0) % Sodium (135-145) mmol/L Potassium (3.6-5.0) mmol/L Chloride (101-111) mmol/L Carbon Dioxide (21.0-31.0) mmol/L Anion Gap BUN (7-18) mg/dL Creatinine (0.6-1.3) mg/dL Est Cr Clr Drug Dosing mL/min Estimated GFR (MDRD) BUN/Creatinine Ratio Glucose (74-105) mg/dL Lactic Acid (0.5-2.2) mmol/L Calcium (8.4-10.2) mg/dl Total Bilirubin (0.2-1.0) mg/dL AST (10-42) IU/L ALT (10-60) IU/L Alkaline Phosphatase (42-121) IU/L Total Protein (6.7-8.2) g/dl Albumin (3.2-5.5) g/dl Globulin Albumin/Globulin Ratio Amylase (28-100) U/L Lipase (22-51) U/L Urine Color Yellow (YELLOW) Urine Appearance Clear (CLEAR) Urine pH 6.0 (5.0-9.0) Ur Specific [place] 1.010 (1.005-1.030) Urine Protein 30 H (NEGATIVE) Urine Glucose (UA) Negative (NEGATIVE) Urine Ketones Negative (NEGATIVE) Urine Occult Blood Small H (NEGATIVE) Urine Nitrite Negative (NEGATIVE) Urine Bilirubin Negative (NEGATIVE) Urine Urobilinogen 0.2 (0.2-1.0) mg/dL Ur Leukocyte Esterase Negative (NEGATIVE) Urine RBC 5-10 H /HPF Urine WBC 0-5 (0-5/HPF) /HPF Ur Epithelial Cells Rare /HPF Amorphous Sediment Rare (0/HPF) /HPF Urine Bacteria Rare (0-FEW/HPF) /HPF Meds: Medications Generic Name Dose Route Start Last Admin Trade Name Freq PRN Reason Stop Dose Admin Sodium Chloride 10 ml 07/04/18 16:50 07/04/18 17:21 Saline Flush FLUSH 10 ml ASDIRECTED PRN Administration Keep Vein Open Discontinued Medications Generic Name Dose Route Start Last Admin Trade Name Freq PRN Reason Stop Dose Admin Hydromorphone HCl 1 mg 07/04/18 16:52 07/04/18 17:21 Dilaudid IVPUSH 07/04/18 16:53 1 mg ONETIME ONE Administration Hydromorphone HCl 1 mg 07/04/18 18:54 07/04/18 19:02 Dilaudid IVPUSH 07/04/18 18:55 1 mg ONETIME ONE Administration Sodium Chloride 1,000 mls @ 999 mls/hr 07/04/18 16:50 07/04/18 17:20 Normal Saline IV 07/04/18 17:50 999 mls/hr .BOLUS ONE Administration Sodium Chloride 1,000 mls @ 999 mls/hr 07/04/18 18:26 07/04/18 18:31 Normal Saline IV 07/04/18 19:26 999 mls/hr .BOLUS ONE Administration Iopamidol 75 ml 07/04/18 18:02 07/04/18 18:06 Isovue-300 (61%) IVPUSH 07/04/18 18:03 75 ml ONETIME ONE Administration Ondansetron HCl 4 mg 07/04/18 16:50 07/04/18 17:20 Zofran IV 07/04/18 16:51 4 mg ONETIME ONE Administration - Radiology Interpretation Free Text/Narrative:: Abdomen/Pelvis CT with contrast: FINDINGS: Lower thorax: 8mm right lung base nodule is stable dating back to 2014. ABDOMEN: Liver: There is diffuse fatty infiltration of the liver. Gallbladder and bile ducts: Gallbladder is surgically absent Pancreas: Normal. No ductal dilation. Spleen: Normal. No splenomegaly. Adrenals: Normal. No mass. Kidneys and ureters: 8.3 cm right renal cyst again noted Stomach and bowel: There are scattered diverticuli in the distal colon. Pericolonic fat planes are preserved. There are mildly dilated loops of small bowel in the left mid abdomen. Appendix: No evidence of appendicitis. PELVIS: Bladder: Unremarkable as visualized. Reproductive: The uterus appears surgically absent. ABDOMEN and PELVIS: Intraperitoneal space: Normal. No free air. No significant fluid collection. Bones/joints: No acute fracture. No dislocation. Soft tissues: Unremarkable. Vasculature: Normal. No abdominal aortic aneurysm. Lymph nodes: Normal. No enlarged lymph nodes. IMPRESSION: 1. Likely small bowel ileus, less likely partial obstruction 2. Hepatic steatosis 3. Mild distal colonic diverticulosis 4. Large right renal cyst Thank you for allowing us to participate in the care of your patient. Dictated and Authenticated by: Joo Stahl MD 07/04/2018 6:49 PM Central Time ([place] & [place]) See Rad report Departure - Departure Disposition: DC/Tfer to [facility] 02 Clinical Impression: Renal cyst, right, Hepatic steatosis, History of nephrectomy, unilateral - Discharge Information Forms: Interfacility Transfer EMTALA <Damien Dotson - Last Filed: 07/04/18 20:30> ED HPI GENERAL MEDICAL PROBLEM right flank Pain Score (Numeric/FACES): 9 Course - Re-Assessments/Exams Free Text/Narrative Re-Assessment/Exam: 07/04/18 20:[address] Rasmussen @ [facility] who kindly accepted pt. 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 Departure - Departure Time of Disposition: 20:28 Condition: Fair I have read and agree with the documentation that has been completed regarding this visit. By signing this record, I attest that the documentation was completed in my physical presence and is an accurate record of the encounter.
[2018-07-04 19:00] VITALS: BP 143/88
== END 2018-07-04 23:09 ==
LOC: DL.ED 16:10
DX: N28.1 Cyst of kidney, acquired (principal); K76.0 Fatty (change of) liver, not elsewhere classified; I10 Essential (primary) hypertension; K21.9 Gastro-esophageal reflux disease without esophagitis; Z79.899 Other long term (current) drug therapy; Z88.1 Allergy status to other antibiotic agents; Z88.8 Allergy status to other drugs, medicaments and biological substances; Z88.6 Allergy status to analgesic agent; Z88.5 Allergy status to narcotic agent
CPT/HCPCS: 36415; 74177; 80053; 81001; 82150; 83605; 83690; 85025; 96361; 96374; 96375; 96376; 99284; J1170; J2405; J7030; Q9967

== ENCOUNTER 2019-03-31 16:43 | Observation (INO) | payer BC, OTHER ==
--- NOTE | 2019-03-31 17:47 | EDM.PDOC ---
<Abe Bryant M - Last Filed: 03/31/19 18:56> ED HPI GENERAL MEDICAL PROBLEM - General Chief Complaint: Abdominal Pain Stated Complaint: stomach pain nausea lost 7 pounds Time Seen by Provider: 03/31/19 17:35 Source of Information: Reports: Patient History Limitations: Reports: No Limitations - History of Present Illness INITIAL COMMENTS - FREE TEXT/NARRATIVE: This 59 yo female patient reports to the ED with a 3 week history of increased abdominal pain. The patient reports she currently feels like someone is " socking her in the stomach". The patient reports she was seen last week at the [facility], but nothing was done. The patient reports increased pain since that time. The patient reports a past history of an appendectomy, cholecystectomy, a small bowel obstruction due to adhesions and a congenital bad left kidney (removed in 1996). The patient reports over the weekend she has been having bowel movements as soon as she eats. The patient reports a 7 pound weight loss in the past 3 weeks. Duration: Week(s):, Constant, Getting Worse Location: Reports: Abdomen Quality: Reports: Other Severity: Severe Improves with: Reports: None Worsens with: Reports: None Context: Reports: Other Associated Symptoms: Reports: Other Middle Abdomen Pain Score (Numeric/FACES): 8 - Related Data Allergies Allergy/AdvReac Type Severity Reaction Status Date / Time aspirin Allergy Nausea and Verified 03/31/19 16:54 Vomiting codeine Allergy Rash Verified 03/31/19 16:54 diphenhydramine Allergy Rash Verified 03/31/19 16:54 doxycycline Allergy Rash Verified 03/31/19 16:54 ketorolac tromethamine Allergy Anxiety Verified 03/31/19 16:54 [From Toradol] levofloxacin [From Levaquin] Allergy Rash Verified 03/31/19 16:54 metoclopramide HCl Allergy Anxiety Verified 03/31/19 16:54 [From Reglan] naproxen Allergy Rash Verified 03/31/19 16:54 sumatriptan [From Imitrex] Allergy Other Verified 03/31/19 16:54 sumatriptan succinate Allergy Other Verified 03/31/19 16:54 [From Imitrex] Home Meds: Home Meds Ascorbic Acid [Vitamin C] 1 tab PO DAILY 02/27/14 [History] Lisinopril 1 tab PO DAILY 02/27/14 [History] Omeprazole 1 tab PO BID 02/27/14 [History] hydroCHLOROthiazide [Hydrochlorothiazide] 25 mg PO DAILY 02/27/14 [History] Potassium Chloride [Klor-Con 10] 10 meq PO DAILY 09/17/16 [History] Promethazine HCl 1 supp RC ASDIRECTED PRN 03/31/19 [History] Past Medical History HEENT History: Reports: Impaired Vision Cardiovascular History: Reports: Hypertension Gastrointestinal History: Reports: Bowel Obstruction, GERD Genitourinary History: Reports: Other (See Below) Other Genitourinary History: left kidney removed [employer] History: Reports: Other (See Below) Other [employer] History: complete hysterectomy Musculoskeletal History: Reports: Back Pain, Chronic Neurological History: Reports: Migraines - Past Surgical History GI Surgical History: Reports: Appendectomy, Cholecystectomy, Hernia, Inguinal, Hernia Repair/Other Female Surgical History: Reports: Nephrectomy Musculoskeletal Surgical History: Reports: Arthroscopic Knee, Shoulder Surgery, Other (See Below) Other Musculoskeletal Surgeries/Procedures:: ankle left, torn meniscus bilateral , back surgery 2018. Neck surgery in May 28, 2018 Social & Family History - Family History Family Medical History: Noncontributory - Tobacco Use Smoking Status *Q: Former Smoker Used Tobacco, but Quit: Yes Month/Year Tobacco Last Used: 2014 - Caffeine Use Caffeine Use: Reports: Coffee, Tea Caffeine Use Comment: 1 cup coffee in the morning - Recreational Drug Use Recreational Drug Use: No ED ROS GENERAL - Review of Systems Review Of Systems: ROS reveals no pertinent complaints other than HPI. ED EXAM, GI/ABD - Physical Exam Exam: See Below Exam Limited By: No Limitations General Appearance: Alert, WD/WN, Moderate Distress Eyes: Bilateral: Normal Appearance, EOMI Ears: Normal External Exam, Normal Canal, Hearing Grossly Normal, Normal TMs Nose: Normal Inspection, Normal Mucosa, No Blood Throat/Mouth: Normal Inspection, Normal Lips, Normal Teeth, Normal Gums, Normal Oropharynx, Normal Voice, No Airway Compromise Head: Atraumatic, Normocephalic Neck: Normal Inspection, Supple, Non-Tender, Full Range of Motion Respiratory/Chest: No Respiratory Distress, Lungs Clear, Normal Breath Sounds, No Accessory Muscle Use, Chest Non-Tender GI/Abdominal Exam: Normal Bowel Sounds, No Organomegaly, No Distention, No Mass , Pelvis Stable, Tender (diffuse tenderness) (Female) Exam: Deferred Rectal (Female) Exam: Deferred Back Exam: Normal Inspection, Full Range of Motion, NT Extremities: Normal Inspection, Normal Range of Motion, Non-Tender, Normal Capillary Refill, No Pedal Edema Neurological: Alert, Oriented, CN II-XII Intact, Normal Cognition, Normal Gait, Normal Reflexes, No Motor/Sensory Deficits Psychiatric: Normal Affect, Normal Mood Skin Exam: Warm, Dry, Intact, Normal Color, No Rash Lymphatic: No Adenopathy Course - Vital Signs Last Recorded V/S: Last Vital Signs Temp 97.6 F 04/01/19 20:00 Pulse 56 L 04/01/19 20:00 Resp 18 04/01/19 20:00 BP 137/77 04/01/19 20:00 Pulse Ox 98 04/01/19 23:58 - Orders/Labs/Meds Orders: Medication Orders Acetaminophen (Tylenol) 650 mg PO Q4H PRN PRN Reason: Pain (Mild 1-3)/fever Hydrocodone Bitart/Acetaminophen ([place] 325-10 Mg) 0.5 tab PO Q4H PRN PRN Reason: Pain (moderate 4-6) Last Admin: 04/01/19 06:25 Dose: 0.5 tab Famotidine (Pepcid) 20 mg PO BID [facility] Last Admin: 04/01/19 21:40 Dose: 20 mg Admin: 04/01/19 09:20 Dose: 20 mg Hydrochlorothiazide (Hydrochlorothiazide) 25 mg PO DAILY [facility] Last Admin: 04/01/19 09:19 Dose: 25 mg Lisinopril (Prinivil) 20 mg PO DAILY [facility] Last Admin: 04/01/19 09:21 Dose: 20 mg Morphine Sulfate (Morphine) 2 mg IVPUSH Q2H PRN PRN Reason: Pain (severe 7-10) Last Admin: 04/01/19 21:40 Dose: 2 mg Admin: 04/01/19 17:13 Dose: 2 mg Admin: 04/01/19 08:35 Dose: 2 mg Admin: 04/01/19 01:11 Dose: 2 mg Ondansetron HCl (Zofran) 4 mg IVPUSH Q6H PRN PRN Reason: Nausea/Vomiting Last Admin: 04/01/19 08:32 Dose: 4 mg Pantoprazole Sodium (Protonix Iv) 40 mg IVPUSH Q12HR [facility] Last Admin: 04/01/19 21:40 Dose: 40 mg Admin: 04/01/19 09:20 Dose: 40 mg Admin: 04/01/19 01:01 Dose: 40 mg Potassium Chloride (Klor-Con 10) 10 meq PO DAILY [facility] Last Admin: 04/01/19 09:20 Dose: 10 meq Promethazine HCl (Phenergan) 6.25 mg IM Q6H PRN PRN Reason: Nausea/Vomiting Zolpidem Tartrate (Ambien) 5 mg PO BEDTIME PRN PRN Reason: Sleep Last Admin: 04/01/19 23:34 Dose: 5 mg Labs: Laboratory Tests 03/31/19 03/31/19 03/31/19 Range/Units 18:08 18:08 18:08 WBC 6.4 (5.0-10.0) 10^3/uL RBC 4.78 (4.2-5.4) 10^6/uL Hgb 13.6 D (12.0-16.0) g/dL Hct 40.6 (37.0-47.0) % MCV 84.9 (80-100) fL MCH 28.5 (27.0-34.0) pg MCHC 33.5 (33.0-35.0) g/dL Plt Count 227 D (150-450) 10^3/uL Neut % (Auto) 66.7 (42.2-75.2) % Lymph % (Auto) 26.8 (20.5-50.1) % Will % (Auto) 5.3 (2-8) % Eos % (Auto) 0.6 L (1.0-3.0) % Baso % (Auto) 0.6 (0.0-1.0) % Sodium (135-145) mmol/L Potassium (3.6-5.0) mmol/L Chloride (101-111) mmol/L Carbon Dioxide (21.0-31.0) mmol/L Anion Gap BUN (7-18) mg/dL Creatinine (0.6-1.3) mg/dL Est Cr Clr Drug Dosing mL/min Estimated GFR (MDRD) BUN/Creatinine Ratio Glucose (74-105) mg/dL Lactic Acid 1.0 (0.5-2.2) mmol/L Calcium (8.4-10.2) mg/dl Total Bilirubin (0.2-1.0) mg/dL AST (10-42) IU/L ALT (10-60) IU/L Alkaline Phosphatase (42-121) IU/L Troponin I (0.00-0.02) ng/ml Total Protein (6.7-8.2) g/dl Albumin (3.2-5.5) g/dl Globulin Albumin/Globulin Ratio Amylase 35 (28-100) U/L Lipase 45 (22-51) U/L Urine Color (YELLOW) Urine Appearance (CLEAR) Urine pH (5.0-9.0) Ur Specific [place] (1.005-1.030) Urine Protein (NEGATIVE) Urine Glucose (UA) (NEGATIVE) Urine Ketones (NEGATIVE) Urine Occult Blood (NEGATIVE) Urine Nitrite (NEGATIVE) Urine Bilirubin (NEGATIVE) Urine Urobilinogen (0.2-1.0) mg/dL Ur Leukocyte Esterase (NEGATIVE) Urine RBC /HPF Urine WBC (0-5/HPF) /HPF Ur Epithelial Cells (NOT SEEN) /HPF Amorphous Sediment (NOT SEEN) /HPF Urine Bacteria (0-FEW/HPF) /HPF Urine Mucus (NOT SEEN) /LPF Acetaminophen < 10 ug/mL 03/31/19 03/31/19 Range/Units 18:08 18:21 WBC (5.0-10.0) 10^3/uL RBC (4.2-5.4) 10^6/uL Hgb (12.0-16.0) g/dL Hct (37.0-47.0) % MCV (80-100) fL MCH (27.0-34.0) pg MCHC (33.0-35.0) g/dL Plt Count (150-450) 10^3/uL Neut % (Auto) (42.2-75.2) % Lymph % (Auto) (20.5-50.1) % Will % (Auto) (2-8) % Eos % (Auto) (1.0-3.0) % Baso % (Auto) (0.0-1.0) % Sodium 140 (135-145) mmol/L Potassium 3.3 L (3.6-5.0) mmol/L Chloride 103 (101-111) mmol/L Carbon Dioxide 27.0 (21.0-31.0) mmol/L Anion Gap 13.3 BUN 9 (7-18) mg/dL Creatinine 0.7 (0.6-1.3) mg/dL Est Cr Clr Drug Dosing 65.30 mL/min Estimated GFR (MDRD) > 60 BUN/Creatinine Ratio 12.85 Glucose 95 (74-105) mg/dL Lactic Acid (0.5-2.2) mmol/L Calcium 8.8 (8.4-10.2) mg/dl Total Bilirubin 0.7 (0.2-1.0) mg/dL AST 19 (10-42) IU/L ALT 18 (10-60) IU/L Alkaline Phosphatase 57 (42-121) IU/L Troponin I < 0.02 (0.00-0.02) ng/ml Total Protein 7.2 (6.7-8.2) g/dl Albumin 3.9 (3.2-5.5) g/dl Globulin 3.3 Albumin/Globulin Ratio 1.18 Amylase (28-100) U/L Lipase (22-51) U/L Urine Color Yellow (YELLOW) Urine Appearance Slightly cloudy (CLEAR) Urine pH 7.0 (5.0-9.0) Ur Specific [place] 1.020 (1.005-1.030) Urine Protein Trace H (NEGATIVE) Urine Glucose (UA) Negative (NEGATIVE) Urine Ketones Negative (NEGATIVE) Urine Occult Blood Trace-intact H (NEGATIVE) Urine Nitrite Negative (NEGATIVE) Urine Bilirubin Negative (NEGATIVE) Urine Urobilinogen 1.0 (0.2-1.0) mg/dL Ur Leukocyte Esterase Negative (NEGATIVE) Urine RBC 10-20 H /HPF Urine WBC 0-5 (0-5/HPF) /HPF Ur Epithelial Cells Moderate H (NOT SEEN) /HPF Amorphous Sediment Few (NOT SEEN) /HPF Urine Bacteria Occasional (0-FEW/HPF) /HPF Urine Mucus Rare (NOT SEEN) /LPF Acetaminophen ug/mL Meds: Medications Generic Name Dose Route Start Last Admin Trade Name Freq PRN Reason Stop Dose Admin Acetaminophen 650 mg 04/01/19 00:18 Tylenol PO Q4H PRN Pain (Mild 1-3)/fever Hydrocodone Bitart/Acetaminophen 0.5 tab 04/01/19 00:18 04/01/19 06:25 [place] 325-10 Mg PO 0.5 tab Q4H PRN Administration Pain (moderate 4-6) Famotidine 20 mg 04/01/19 09:00 04/01/19 21:40 Pepcid PO 20 mg BID DEE Administration Hydrochlorothiazide 25 mg 04/01/19 09:00 04/01/19 09:19 Hydrochlorothiazide PO 25 mg DAILY DEE Administration Lisinopril 20 mg 04/01/19 09:00 04/01/19 09:21 Prinivil PO 20 mg DAILY DEE Administration Morphine Sulfate 2 mg 04/01/19 00:18 04/01/19 21:40 Morphine IVPUSH 2 mg Q2H PRN Administration Pain (severe 7-10) Ondansetron HCl 4 mg 04/01/19 00:18 04/01/19 08:32 Zofran IVPUSH 4 mg Q6H PRN Administration Nausea/Vomiting Pantoprazole Sodium 40 mg 04/01/19 00:21 04/01/19 21:40 Protonix Iv IVPUSH 40 mg Q12HR DEE Administration Potassium Chloride 10 meq 04/01/19 09:00 04/01/19 09:20 Klor-Con 10 PO 10 meq DAILY DEE Administration Promethazine HCl 6.25 mg 04/01/19 00:18 Phenergan IM Q6H PRN Nausea/Vomiting Zolpidem Tartrate 5 mg 04/01/19 00:18 04/01/19 23:34 Ambien PO 5 mg BEDTIME PRN Administration Sleep Discontinued Medications Generic Name Dose Route Start Last Admin Trade Name Freq PRN Reason Stop Dose Admin Famotidine 20 mg 03/31/19 19:37 03/31/19 19:59 Pepcid IVPUSH 03/31/19 19:38 20 mg ONETIME ONE Administration Famotidine 20 mg 04/01/19 00:30 04/01/19 01:23 Pepcid PO Not Given BID DEE Hydromorphone HCl 1 mg 03/31/19 19:35 03/31/19 20:00 Dilaudid IVPUSH 03/31/19 19:36 1 mg ONETIME ONE Administration Hydromorphone HCl 1 mg 03/31/19 21:09 03/31/19 21:19 Dilaudid IVPUSH 03/31/19 21:10 1 mg ONETIME ONE Administration Sodium Chloride 1,000 mls @ 999 mls/hr 03/31/19 19:34 03/31/19 19:58 Normal Saline IV 03/31/19 20:34 999 mls/hr .BOLUS ONE Administration Potassium Chloride 10 meq/ 100 mls @ 100 mls/hr 03/31/19 21:11 03/31/19 21:18 Premix IV 03/31/19 22:10 100 mls/hr ONETIME ONE Administration Sodium Chloride 500 mls @ 250 mls/hr 03/31/19 21:22 03/31/19 21:22 Normal Saline IV 03/31/19 23:21 250 mls/hr ONETIME ONE Administration Sodium Chloride 1,000 mls @ 125 mls/hr 04/01/19 00:30 04/01/19 00:59 Normal Saline IV 04/01/19 08:29 125 mls/hr ASDIRECTED DEE Administration Iopamidol 75 ml 03/31/19 19:03 03/31/19 19:50 Isovue-300 (61%) IVPUSH 03/31/19 19:04 75 ml ONETIME ONE Administration Non-Formulary Medication 1 tab 04/01/19 09:00 Ascorbic Acid [Vitamin C] PO DAILY [facility] Ondansetron HCl 4 mg 03/31/19 19:34 03/31/19 19:58 Zofran IV 03/31/19 19:35 4 mg ONETIME ONE Administration Departure - Departure Disposition: Refer to Observation Clinical Impression: Hypokalemia Abdominal pain Qualifiers: Abdominal location: generalized Qualified Code(s): R10.84 - Generalized abdominal pain Nausea & vomiting Qualifiers: Vomiting type: bilious vomiting Qualified Code(s): R11.14 - Bilious vomiting - Discharge Information <Mary Mathew - Last Filed: 04/02/19 04:09> Course - Radiology Interpretation Free Text/Narrative:: [facility] Final Radiology Report with Addendum Call: [phone] assistance Online chat: [email or web address] Name: HAWK MONDRAGON Age: 59Years F Date: 03/31/2019 SSN: -- : [id number] Study: CT ABDOMEN/PELVIS W Requesting Physician: Abe Bryant: [id number] Images: [id number] Addl Studies: Provided Clinical History: Pt states pain in central lower abdomen near umbilicus Contrast: With Contrast Medium: iso 300 Contrast Amount: 75 mL Contrast Method: L Forearm 20g Page 1 of 2 Addendum created by El Randall MD on 03/31/2019 9:23 PM Central Time ([place] & [place]) Addendum: The site requested an addendum to the impression at 9:20 PM on 03/31/2019. There is a typographical error in item #8. It was intended to read as follows: 8. Mild diverticulosis without evidence of diverticulitis. Initial Report created on 03/31/2019 8:42 PM Central Time ([place] & [place]) PROCEDURE INFORMATION: Exam: CT Abdomen And Pelvis With Contrast Exam date and time: 03/31/2019 7:48 PM Clinical history: 59 years old, female; Other: Abdomen pain with hematuria; Patient HX: HX of bowel obstruction, appendectomy, lap rigo, hysterectomy, high blood pressure, left kidney removed; Additional info: PT states pain in central lower abdomen near umbilicus TECHNIQUE: Imaging protocol: Computed tomography of the abdomen and pelvis with intravenous contrast. Radiation optimization: All CT scans at this facility use at least one of these dose optimization techniques: automated exposure control; mA and/or kV adjustment per patient size (includes targeted exams where dose is matched to clinical indication); or iterative reconstruction. Contrast material: ISO 300; Contrast volume: 75 ml; Contrast route: L FOREARM 20G; COMPARISON: CT Abdomen Pelvis w Cont 07/04/2018 6:20 PM FINDINGS: ALANNA HAWK | Final Radiology Report CONFIDENTIALITY STATEMENT This report is intended only for use by the referring physician, and only in accordance with law. If you received this in error, call [phone]. Page 2 of 2 Lungs: 10.8 x 4.7 by 6.3 mm noncalcified pulmonary nodule along the lateral right basilar diaphragmatic pleural surface on coronal series 3 image 57 and sagittal image 112. It is not significantly changed in size from the comparison exam 07/04/2018, and is reportedly stable back to 2015 per prior exam. Heart: Heart size normal. Liver: Mild fatty infiltration of the liver. No mass lesions. No intrahepatic biliary ductal dilatation. Gallbladder and bile ducts: Evidence of prior cholecystectomy with no significant dilatation of the common bile duct. Pancreas: Normal. No inflammatory changes or ductal dilation. Spleen: The spleen is normal in appearance. Adrenals: Normal. No adrenal mass. Kidneys and ureters: Prior left nephrectomy. There is mild ectasia of the right renal pelvis and upper pole calyces which is unchanged, with no ureterectasis or urolithiasis. No urinary tract stones are identified. 6.9 cm cyst in the anterior midpole cortex demonstrate simple features, decreased in size since prior exam. Stomach and bowel: The visualized distal esophagus and stomach are normal. The small bowel is normal with no evidence of obstruction. Mild distal colonic diverticulosis in the descending colon and sigmoid colon no focal inflammatory changes or wall thickening suggestive of acute diverticulitis are identified Appendix: The appendix is normal in caliber and demonstrates no evidence of appendicitis. 2 mm calcified appendicolith in the proximal appendix. Intraperitoneal space: No free fluid or air. Vasculature: Mild atherosclerotic aortoiliac calcification without aneurysm. Lymph nodes: No adenopathy. Bladder: Unremarkable as visualized. Reproductive: Hysterectomy. Bones/joints: No acute osseous abnormalities. Soft tissues: Unremarkable. IMPRESSION: 1. No acute process is evident. 2. Prior left nephrectomy. 3. Unchanged 10 mm pulmonary nodule in the peripheral right base. 4. Fatty liver. 5. 6.9 cm right renal cyst which is decreased in size since 07/04/2018. 6. Unchanged chronic mild ectasia of the right renal pelvis and upper pole calyces. No evidence to suggest acute obstructive uropathy. 7. 2 mm calcified appendicolith in the proximal appendix with no evidence of appendicitis. 8. No diverticulosis without evidence of diverticulitis. Thank you for allowing us to participate in the care of your patient. Dictated and Authenticated by: El Randall MD 03/31/2019 8:42 PM Central Time ([place] & [place] Departure - Departure Time of Disposition: 22:45 Condition: Good - Discharge Information *PRESCRIPTION DRUG MONITORING PROGRAM REVIEWED*: No *COPY OF PRESCRIPTION DRUG MONITORING REPORT IN PATIENT GARRY: No
[2019-03-31 18:37] LABS: ANION GAP 13.3; CHLORIDE,CL 103 mmol/L (101-111); SODIUM,NA 140 mmol/L (135-145)
[2019-03-31 18:43] LABS: ACETAMINOPHEN < 10 ug/mL
[2019-03-31] MEDS ORDERED: Iopamidol 612 MG/ML 75 ML Bottle IVPUSH ONE (19:03)
[2019-03-31] MEDS ORDERED: Sodium Chloride 0.9% 1,000 ML IV ONE (19:34)
[2019-03-31] MEDS ORDERED: Ondansetron 4 MG/2 ML SDV IV ONE (19:34)
[2019-03-31] MEDS ORDERED: HYDROmorphone 1 MG/ML Syringe IVPUSH ONE ×2 (19:35→21:09)
[2019-03-31] MEDS ORDERED: Famotidine 20 MG/2 ML SDV IVPUSH ONE (19:37)
[2019-03-31] MEDS ORDERED: Potassium Chloride 10 MEQ in Premix Bag 1 BAG IV ONE (21:11)
[2019-03-31] MEDS ORDERED: Sodium Chloride 0.9% 500 ML IV ONE (21:22)
[2019-04-01] MEDS ORDERED: Promethazine 25 MG/ML SDV IM PRN (00:18)
[2019-04-01] MEDS ORDERED: Acetaminophen 325 MG Tab PO PRN (00:18)
[2019-04-01] MEDS ORDERED: Sodium Chloride 0.9% 1,000 ML IV SCH (00:30)
[2019-04-01] MEDS ORDERED: Famotidine 20 MG Tab PO SCH (00:30)
--- NOTE | 2019-04-01 00:30 | PCM.HP ---
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 Pain is described as stabbing, intermittent, rated 8/10 at its worst , worse with food especially greasy food. Pain does not radiate. Pain is associated with nausea, nonbloody vomiting, and nonbloody loose stool after eating. She is passing flatus She denies significant stress in her life. She said this pain is similar to the pain she had for years. She had colonoscopy and upper GI scope in 2014 stating they were normal. Other had history of colon cancer in her 50s. Patient stated that she was told she is supposed to have colonoscopy soon and she is working on getting it. She denies fever, chills, chest pain, shortness breath, dizziness, lightheadedness, black stool, blood in urine, dysuria, urinary frequency, bruise, vaginal symptoms. Patient denies using NSAIDs. She has been taking omeprazole 20 mg twice a day Middle Abdomen Pain Score (Numeric/FACES): 4 - Related Data Allergies/Adverse Reactions: Allergies Allergy/AdvReac Type Severity Reaction Status Date / Time aspirin Allergy Nausea and Verified 03/31/19 16:54 Vomiting codeine Allergy Rash Verified 03/31/19 16:54 diphenhydramine Allergy Rash Verified 03/31/19 16:54 doxycycline Allergy Rash Verified 03/31/19 16:54 ketorolac tromethamine Allergy Anxiety Verified 03/31/19 16:54 [From Toradol] levofloxacin [From Levaquin] Allergy Rash Verified 03/31/19 16:54 metoclopramide HCl Allergy Anxiety Verified 03/31/19 16:54 [From Reglan] naproxen Allergy Rash Verified 03/31/19 16:54 sumatriptan [From Imitrex] Allergy Other Verified 03/31/19 16:54 sumatriptan succinate Allergy Other Verified 03/31/19 16:54 [From Imitrex] Home Medications: Home Meds Ascorbic Acid [Vitamin C] 1 tab PO DAILY 02/27/14 [History] Lisinopril 1 tab PO DAILY 02/27/14 [History] Omeprazole 1 tab PO BID 02/27/14 [History] hydroCHLOROthiazide [Hydrochlorothiazide] 25 mg PO DAILY 02/27/14 [History] Potassium Chloride [Klor-Con 10] 10 meq PO DAILY 09/17/16 [History] Promethazine HCl 1 supp RC ASDIRECTED PRN 03/31/19 [History] Past Medical History HEENT History: Reports: Impaired Vision Cardiovascular History: Reports: Hypertension Gastrointestinal History: Reports: Bowel Obstruction, GERD Genitourinary History: Reports: Other (See Below) Other Genitourinary History: left kidney removed [employer] History: Reports: Other (See Below) Other OB/BYN History: complete hysterectomy Musculoskeletal History: Reports: Back Pain, Chronic Neurological History: Reports: Migraines - Past Surgical History GI Surgical History: Reports: Appendectomy, Cholecystectomy, Hernia, Inguinal, Hernia Repair/Other Female Surgical History: Reports: Nephrectomy Musculoskeletal Surgical History: Reports: Arthroscopic Knee, Shoulder Surgery, Other (See Below) Other Musculoskeletal Surgeries/Procedures:: ankle left, torn meniscus bilateral , back surgery 2018. Neck surgery in May 28, 2018 Social & Family History - Family History Family Medical History: Noncontributory - Tobacco Use Smoking Status *Q: Former Smoker Used Tobacco, but Quit: Yes Month/Year Tobacco Last Used: 2014 - Caffeine Use Caffeine Use: Reports: Coffee, Tea Caffeine Use Comment: 1 cup coffee in the morning - Recreational Drug Use Recreational Drug Use: No H&P Review of Systems - Review of Systems: Review Of Systems: ROS reveals no pertinent complaints other than HPI. Exam - Exam Exam: See Below - Vital Signs Vital Signs: Last Vital Signs Temp 37.1 C 03/31/19 22:56 Pulse 80 03/31/19 22:56 Resp 18 03/31/19 22:56 BP 136/60 03/31/19 22:56 Pulse Ox 97 03/31/19 22:56 Weight: 69.218 kg - Exam General: Alert, Oriented, Cooperative. No: Mild Distress, Moderate Distress, Severe Distress, Sedated, Lethargic, Obtunded HEENT: Conjunctiva Clear, EACs Clear, EOMI, Hearing Intact, Mucosa Moist & [place] Neck: Supple, Trachea Midline Lungs: Clear to Auscultation, Normal Respiratory Effort Cardiovascular: Regular Rate, Regular Rhythm GI/Abdominal Exam: Normal Bowel Sounds, Soft, No Distention, No Abnormal Bruit, No Mass, Tender (Epigastric). No: Guarding, Rigid, Rebound (Female) Exam: Deferred Rectal (Female) Exam: Deferred Back Exam: Normal Inspection, Full Range of Motion Extremities: Normal Inspection, Normal Range of Motion, Non-Tender, No Pedal Edema, Normal Capillary Refill Skin: Warm, Dry, Intact Neurological: Cranial Nerves Intact Neuro Extensive - Mental Status: Alert, Oriented x3, Normal Mood/Affect Psychiatric: Alert, Normal Affect, Normal Mood - Patient Data Lab Results Last 24 hrs: Laboratory Results - last 24 hr 03/31/19 03/31/19 03/31/19 Range/Units 18:08 18:08 18:08 WBC 6.4 (5.0-10.0) 10^3/uL RBC 4.78 (4.2-5.4) 10^6/uL Hgb 13.6 D (12.0-16.0) g/dL Hct 40.6 (37.0-47.0) % MCV 84.9 (80-100) fL MCH 28.5 (27.0-34.0) pg MCHC 33.5 (33.0-35.0) g/dL Plt Count 227 D (150-450) 10^3/uL Neut % (Auto) 66.7 (42.2-75.2) % Lymph % (Auto) 26.8 (20.5-50.1) % [place] % (Auto) 5.3 (2-8) % Eos % (Auto) 0.6 L (1.0-3.0) % Baso % (Auto) 0.6 (0.0-1.0) % Sodium (135-145) mmol/L Potassium (3.6-5.0) mmol/L Chloride (101-111) mmol/L Carbon Dioxide (21.0-31.0) mmol/L Anion Gap BUN (7-18) mg/dL Creatinine (0.6-1.3) mg/dL Est Cr Clr Drug Dosing mL/min Estimated GFR (MDRD) BUN/Creatinine Ratio Glucose (74-105) mg/dL Lactic Acid 1.0 (0.5-2.2) mmol/L Calcium (8.4-10.2) mg/dl Total Bilirubin (0.2-1.0) mg/dL AST (10-42) IU/L ALT (10-60) IU/L Alkaline Phosphatase (42-121) IU/L Troponin I (0.00-0.02) ng/ml Total Protein (6.7-8.2) g/dl Albumin (3.2-5.5) g/dl Globulin Albumin/Globulin Ratio Amylase 35 (28-100) U/L Lipase 45 (22-51) U/L Urine Color (YELLOW) Urine Appearance (CLEAR) Urine pH (5.0-9.0) Ur Specific [place] (1.005-1.030) Urine Protein (NEGATIVE) Urine Glucose (UA) (NEGATIVE) Urine Ketones (NEGATIVE) Urine Occult Blood (NEGATIVE) Urine Nitrite (NEGATIVE) Urine Bilirubin (NEGATIVE) Urine Urobilinogen (0.2-1.0) mg/dL Ur Leukocyte Esterase (NEGATIVE) Urine RBC /HPF Urine WBC (0-5/HPF) /HPF Ur Epithelial Cells (NOT SEEN) /HPF Amorphous Sediment (NOT SEEN) /HPF Urine Bacteria (0-FEW/HPF) /HPF Urine Mucus (NOT SEEN) /LPF Acetaminophen < 10 ug/mL 03/31/19 03/31/19 Range/Units 18:08 18:21 WBC (5.0-10.0) 10^3/uL RBC (4.2-5.4) 10^6/uL Hgb (12.0-16.0) g/dL Hct (37.0-47.0) % MCV (80-100) fL MCH (27.0-34.0) pg MCHC (33.0-35.0) g/dL Plt Count (150-450) 10^3/uL Neut % (Auto) (42.2-75.2) % Lymph % (Auto) (20.5-50.1) % [place] % (Auto) (2-8) % Eos % (Auto) (1.0-3.0) % Baso % (Auto) (0.0-1.0) % Sodium 140 (135-145) mmol/L Potassium 3.3 L (3.6-5.0) mmol/L Chloride 103 (101-111) mmol/L Carbon Dioxide 27.0 (21.0-31.0) mmol/L Anion Gap 13.3 BUN 9 (7-18) mg/dL Creatinine 0.7 (0.6-1.3) mg/dL Est Cr Clr Drug Dosing 65.30 mL/min Estimated GFR (MDRD) > 60 BUN/Creatinine Ratio 12.85 Glucose 95 (74-105) mg/dL Lactic Acid (0.5-2.2) mmol/L Calcium 8.8 (8.4-10.2) mg/dl Total Bilirubin 0.7 (0.2-1.0) mg/dL AST 19 (10-42) IU/L ALT 18 (10-60) IU/L Alkaline Phosphatase 57 (42-121) IU/L Troponin I < 0.02 (0.00-0.02) ng/ml Total Protein 7.2 (6.7-8.2) g/dl Albumin 3.9 (3.2-5.5) g/dl Globulin 3.3 Albumin/Globulin Ratio 1.18 Amylase (28-100) U/L Lipase (22-51) U/L Urine Color Yellow (YELLOW) Urine Appearance Slightly cloudy (CLEAR) Urine pH 7.0 (5.0-9.0) Ur Specific [place] 1.020 (1.005-1.030) Urine Protein Trace H (NEGATIVE) Urine Glucose (UA) Negative (NEGATIVE) Urine Ketones Negative (NEGATIVE) Urine Occult Blood Trace-intact H (NEGATIVE) Urine Nitrite Negative (NEGATIVE) Urine Bilirubin Negative (NEGATIVE) Urine Urobilinogen 1.0 (0.2-1.0) mg/dL Ur Leukocyte Esterase Negative (NEGATIVE) Urine RBC 10-20 H /HPF Urine WBC 0-5 (0-5/HPF) /HPF Ur Epithelial Cells Moderate H (NOT SEEN) /HPF Amorphous Sediment Few (NOT SEEN) /HPF Urine Bacteria Occasional (0-FEW/HPF) /HPF Urine Mucus Rare (NOT SEEN) /LPF Acetaminophen ug/mL Result Diagrams: 03/31/19 18:08 03/31/19 18:08 - Problem List (1) Nausea and vomiting SNOMED Code(s): 50126720 ICD Code: R11.2 - NAUSEA WITH VOMITING, UNSPECIFIED Status: Acute Current Visit: Yes (2) Abdominal pain SNOMED Code(s): 31006923 ICD Code: R10.9 - UNSPECIFIED ABDOMINAL PAIN Status: Acute Current Visit : No Qualifiers: Abdominal location: generalized Qualified Code(s): R10.84 - Generalized abdominal pain Problem List Initiated/Reviewed/Updated: Yes Orders Last 24hrs: Active Orders 24 hr Category Date Time Status Admission Diagnosis [ADT] Stat ADT 03/31/19 22:37 Ordered Admission Status [Patient Status] [ADT] Routine ADT 03/31/19 22:37 Active Antiembolic Devices [RC] PER UNIT ROUTINE Care 04/01/19 00:20 Ordered Height and Weight [RC] DAILY Care 04/01/19 00:18 Ordered Intake and Output [RC] QSHIFT Care 04/01/19 00:18 Ordered Notify Provider Vital Signs [RC] ASDIRECTED Care 04/01/19 00:19 Ordered Oxygen Therapy [RC] PRN Care 04/01/19 00:18 Ordered Up ad Elen [RC] ASDIRECTED Care 04/01/19 00:18 Ordered VTE/DVT Education [RC] PER UNIT ROUTINE Care 04/01/19 00:18 Ordered Vital Signs [RC] Q4H Care 04/01/19 00:18 Ordered Full Liquid Diet [DIET] Diet 04/01/19 Breakfast Ordered Abdomen Pelvis w Cont [CT] Urgent Exams 03/31/19 19:03 Taken CBC WITH AUTO DIFF [HEME] AM Lab 04/01/19 05:11 Ordered CLOSTRIDIUM DIFFICILE TOX RFLX [MREF] Routine Lab 04/01/19 00:23 Ordered COMPREHENSIVE METABOLIC PN,CMP [CHEM] AM Lab 04/01/19 05:11 Ordered CULTURE BLOOD [BC] Stat Lab 03/31/19 18:08 Received INR,PT,PROTHROMBIN TIME [COAG] AM Lab 04/01/19 05:11 Ordered MAGNESIUM [CHEM] AM Lab 04/01/19 05:11 Ordered TSH ULTRASENSITIVE [CHEM] AM Lab 04/01/19 05:11 Ordered Acetaminophen [Tylenol] Med 04/01/19 00:18 Ordered 650 mg PO Q4H PRN Acetaminophen/HYDROcodone [[place] 325-10 MG] Med 04/01/19 00:18 Ordered 0.5 tab PO Q4H PRN Ascorbic Acid [Vitamin C] Med 04/01/19 09:00 Ordered 1 tab PO DAILY Famotidine [Pepcid] Med 04/01/19 00:30 Ordered 20 mg PO BID Lisinopril [Prinivil] Med 04/01/19 09:00 Ordered 20 mg PO DAILY Morphine Med 04/01/19 00:18 Ordered 2 mg IVPUSH Q2H PRN Ondansetron [Zofran] Med 04/01/19 00:18 Ordered 4 mg IVPUSH Q6H PRN Pantoprazole [ProTONIX IV] Med 04/01/19 00:21 Ordered 40 mg IVPUSH Q12HR Potassium Chloride [Klor-Con 10] Med 04/01/19 09:00 Ordered 10 meq PO DAILY Promethazine [Phenergan] Med 04/01/19 00:18 Ordered 6.25 mg IM Q6H PRN Sodium Chloride 0.9% @ 125 MLS/HR (1000ml) Med 04/01/19 00:30 Ordered Sodium Chloride 0.9% [Normal Saline] 1,000 ml IV ASDIRECTED Zolpidem [Ambien] Med 04/01/19 00:18 Ordered 5 mg PO BEDTIME PRN hydroCHLOROthiazide Med 04/01/19 09:00 Ordered 25 mg PO DAILY Isolation [COMM] Stat Oth 04/01/19 00:25 Ordered Sequential Compression Device [OM.PC] Per Unit Routine Oth 04/01/19 00:19 Ordered Resuscitation Status Routine Resus Stat 04/01/19 00:18 Ordered Medication Orders Hydrochlorothiazide (Hydrochlorothiazide) 25 mg PO DAILY DEE Lisinopril (Prinivil) 20 mg PO DAILY DEE Non-Formulary Medication (Ascorbic Acid [Vitamin C]) 1 tab PO DAILY DEE Potassium Chloride (Klor-Con 10) 10 meq PO DAILY DEE Assessment/Plan Comment:: 59-year-old the female with past medical history of chronic abdominal pain, small bowel obstruction in 2014, appendectomy and cholecystectomy several years ago, 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 Patient also admitted losing 7 pounds since past few weeks. She was [facility] at [facility] few weeks ago. On admission her CBC, CMP, lipase, CT abdomen and pelvis are unremarkable #Abdominal pain Acute on chronic -I stopped her oral omeprazole and change it to IV Protonix 40 mg twice a day and started Pepcid 20 mg twice a day orally -We discussed the need to do upper endoscopy and colonoscopy as soon as possible. 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 -Full liquid diet for now #Nausea and vomiting Antiemetics as needed -1 L of normal saline infusion oriented #Diarrhea C. difficile, stool culture and parasites ordered -Weight loss Possibly from nausea, vomiting, diarrhea. However there could be underlying cause -TSH ordered -We discussed upper endoscopy and colonoscopy considering the risk of having family history of colon cancer -We discussed that she needs to follow up with her primary care provider for the weight loss #History of left nephrectomy We discussed avoiding any type of NSAIDs
[2019-04-01] MEDS: Pantoprazole 40 MG Vial IVPUSH SCH ×3 (01:01→21:40)
[2019-04-01] MEDS: Morphine 2 MG/ML Syringe IVPUSH PRN ×4 (01:11→21:40)
[2019-04-01] MEDS: Acetaminophen/HYDROcodone 325-10 MG Tab PO PRN (06:25)
[2019-04-01 07:15] LABS: ANION GAP 9.4; CHLORIDE,CL 110 mmol/L (101-111); SODIUM,NA 142 mmol/L (135-145)
[2019-04-01] MEDS: Ondansetron 4 MG/2 ML SDV IVPUSH PRN (08:32)
[2019-04-01] MEDS ORDERED: ASCORBIC ACID PO SCH (09:00)
[2019-04-01] MEDS: Hydrochlorothiazide 25 MG Tab PO SCH (09:19)
[2019-04-01] MEDS: Potassium Chloride 10 MEQ Tab.ER PO SCH (09:20)
[2019-04-01] MEDS: Famotidine 20 MG Tab PO SCH ×2 (09:20→21:40)
[2019-04-01] MEDS: Lisinopril 20 MG Tab PO SCH (09:21)
--- NOTE | 2019-04-01 13:01 | PCM.PN ---
- General Info Date of Service: 04/01/19 Admission Dx/Problem (Free Text): Admission Diagnosis/Problem Admission Diagnosis/Problem Abdominal pain Subjective Update: Patient stated that she is somewhat feeling better however still having nausea after try to eat her breakfast also she is still having same abdominal pain also slightly improved. She has not had a bowel movement since admission. She denies fever, chills, vomiting, chest pain, shortness breath, urinary symptoms, any other symptoms or concerns - Patient Data Vitals - Most Recent: Last Vital Signs Temp 36.8 C 04/01/19 11:27 Pulse 61 04/01/19 11:27 Resp 20 04/01/19 11:27 BP 115/75 04/01/19 11:27 Pulse Ox 98 04/01/19 11:27 Weight - Most Recent: 69.218 kg I&O - Last 24 Hours: Intake & Output 03/31/19 04/01/19 04/01/19 22:59 06:59 14:59 Intake Total 250 1000 Output Total 300 Balance 250 700 Lab Results Last 24 Hours: Laboratory Results - last 24 hr 03/31/19 03/31/19 03/31/19 Range/Units 18:08 18:08 18:08 WBC 6.4 (5.0-10.0) 10^3/uL RBC 4.78 (4.2-5.4) 10^6/uL Hgb 13.6 D (12.0-16.0) g/dL Hct 40.6 (37.0-47.0) % MCV 84.9 (80-100) fL MCH 28.5 (27.0-34.0) pg MCHC 33.5 (33.0-35.0) g/dL Plt Count 227 D (150-450) 10^3/uL Neut % (Auto) 66.7 (42.2-75.2) % Lymph % (Auto) 26.8 (20.5-50.1) % [place] % (Auto) 5.3 (2-8) % Eos % (Auto) 0.6 L (1.0-3.0) % Baso % (Auto) 0.6 (0.0-1.0) % PT (9.0-12.0) SEC INR (0.9-1.2) Sodium (135-145) mmol/L Potassium (3.6-5.0) mmol/L Chloride (101-111) mmol/L Carbon Dioxide (21.0-31.0) mmol/L Anion Gap BUN (7-18) mg/dL Creatinine (0.6-1.3) mg/dL Est Cr Clr Drug Dosing mL/min Estimated GFR (MDRD) BUN/Creatinine Ratio Glucose (74-105) mg/dL Lactic Acid 1.0 (0.5-2.2) mmol/L Calcium (8.4-10.2) mg/dl Magnesium (1.8-2.5) mg/dL Total Bilirubin (0.2-1.0) mg/dL AST (10-42) IU/L ALT (10-60) IU/L Alkaline Phosphatase (42-121) IU/L Troponin I (0.00-0.02) ng/ml Total Protein (6.7-8.2) g/dl Albumin (3.2-5.5) g/dl Globulin Albumin/Globulin Ratio Amylase 35 (28-100) U/L Lipase 45 (22-51) U/L TSH, Ultra Sensitive (0.45-5.33) uIu/mL Urine Color (YELLOW) Urine Appearance (CLEAR) Urine pH (5.0-9.0) Ur Specific [place] (1.005-1.030) Urine Protein (NEGATIVE) Urine Glucose (UA) (NEGATIVE) Urine Ketones (NEGATIVE) Urine Occult Blood (NEGATIVE) Urine Nitrite (NEGATIVE) Urine Bilirubin (NEGATIVE) Urine Urobilinogen (0.2-1.0) mg/dL Ur Leukocyte Esterase (NEGATIVE) Urine RBC /HPF Urine WBC (0-5/HPF) /HPF Ur Epithelial Cells (NOT SEEN) /HPF Amorphous Sediment (NOT SEEN) /HPF Urine Bacteria (0-FEW/HPF) /HPF Urine Mucus (NOT SEEN) /LPF Acetaminophen < 10 ug/mL 03/31/19 03/31/19 04/01/19 Range/Units 18:08 18:21 06:20 WBC 4.4 L (5.0-10.0) 10^3/uL RBC 4.15 L (4.2-5.4) 10^6/uL Hgb 11.8 L D (12.0-16.0) g/dL Hct 35.8 L (37.0-47.0) % MCV 86.3 (80-100) fL MCH 28.4 (27.0-34.0) pg MCHC 33.0 (33.0-35.0) g/dL Plt Count 197 (150-450) 10^3/uL Neut % (Auto) 44.0 (42.2-75.2) % Lymph % (Auto) 46.5 (20.5-50.1) % [place] % (Auto) 6.8 (2-8) % Eos % (Auto) 2.0 (1.0-3.0) % Baso % (Auto) 0.7 (0.0-1.0) % PT (9.0-12.0) SEC INR (0.9-1.2) Sodium 140 (135-145) mmol/L Potassium 3.3 L (3.6-5.0) mmol/L Chloride 103 (101-111) mmol/L Carbon Dioxide 27.0 (21.0-31.0) mmol/L Anion Gap 13.3 BUN 9 (7-18) mg/dL Creatinine 0.7 (0.6-1.3) mg/dL Est Cr Clr Drug Dosing 65.30 mL/min Estimated GFR (MDRD) > 60 BUN/Creatinine Ratio 12.85 Glucose 95 (74-105) mg/dL Lactic Acid (0.5-2.2) mmol/L Calcium 8.8 (8.4-10.2) mg/dl Magnesium (1.8-2.5) mg/dL Total Bilirubin 0.7 (0.2-1.0) mg/dL AST 19 (10-42) IU/L ALT 18 (10-60) IU/L Alkaline Phosphatase 57 (42-121) IU/L Troponin I < 0.02 (0.00-0.02) ng/ml Total Protein 7.2 (6.7-8.2) g/dl Albumin 3.9 (3.2-5.5) g/dl Globulin 3.3 Albumin/Globulin Ratio 1.18 Amylase (28-100) U/L Lipase (22-51) U/L TSH, Ultra Sensitive (0.45-5.33) uIu/mL Urine Color Yellow (YELLOW) Urine Appearance Slightly cloudy (CLEAR) Urine pH 7.0 (5.0-9.0) Ur Specific [place] 1.020 (1.005-1.030) Urine Protein Trace H (NEGATIVE) Urine Glucose (UA) Negative (NEGATIVE) Urine Ketones Negative (NEGATIVE) Urine Occult Blood Trace-intact H (NEGATIVE) Urine Nitrite Negative (NEGATIVE) Urine Bilirubin Negative (NEGATIVE) Urine Urobilinogen 1.0 (0.2-1.0) mg/dL Ur Leukocyte Esterase Negative (NEGATIVE) Urine RBC 10-20 H /HPF Urine WBC 0-5 (0-5/HPF) /HPF Ur Epithelial Cells Moderate H (NOT SEEN) /HPF Amorphous Sediment Few (NOT SEEN) /HPF Urine Bacteria Occasional (0-FEW/HPF) /HPF Urine Mucus Rare (NOT SEEN) /LPF Acetaminophen ug/mL 04/01/19 04/01/19 04/01/19 Range/Units 06:20 06:20 06:20 WBC (5.0-10.0) 10^3/uL RBC (4.2-5.4) 10^6/uL Hgb (12.0-16.0) g/dL Hct (37.0-47.0) % MCV (80-100) fL MCH (27.0-34.0) pg MCHC (33.0-35.0) g/dL Plt Count (150-450) 10^3/uL Neut % (Auto) (42.2-75.2) % Lymph % (Auto) (20.5-50.1) % [place] % (Auto) (2-8) % Eos % (Auto) (1.0-3.0) % Baso % (Auto) (0.0-1.0) % PT 10.7 (9.0-12.0) SEC INR 1.0 (0.9-1.2) Sodium 142 (135-145) mmol/L Potassium 3.4 L (3.6-5.0) mmol/L Chloride 110 (101-111) mmol/L Carbon Dioxide 26.0 (21.0-31.0) mmol/L Anion Gap 9.4 BUN 8 (7-18) mg/dL Creatinine 0.7 (0.6-1.3) mg/dL Est Cr Clr Drug Dosing 65.30 mL/min Estimated GFR (MDRD) > 60 BUN/Creatinine Ratio 11.42 Glucose 93 (74-105) mg/dL Lactic Acid (0.5-2.2) mmol/L Calcium 8.0 L (8.4-10.2) mg/dl Magnesium 1.7 L (1.8-2.5) mg/dL Total Bilirubin 0.8 (0.2-1.0) mg/dL AST 18 (10-42) IU/L ALT 14 (10-60) IU/L Alkaline Phosphatase 44 (42-121) IU/L Troponin I (0.00-0.02) ng/ml Total Protein 5.8 L (6.7-8.2) g/dl Albumin 3.1 L (3.2-5.5) g/dl Globulin 2.7 Albumin/Globulin Ratio 1.15 Amylase (28-100) U/L Lipase (22-51) U/L TSH, Ultra Sensitive 0.31 L (0.45-5.33) uIu/mL Urine Color (YELLOW) Urine Appearance (CLEAR) Urine pH (5.0-9.0) Ur Specific [place] (1.005-1.030) Urine Protein (NEGATIVE) Urine Glucose (UA) (NEGATIVE) Urine Ketones (NEGATIVE) Urine Occult Blood (NEGATIVE) Urine Nitrite (NEGATIVE) Urine Bilirubin (NEGATIVE) Urine Urobilinogen (0.2-1.0) mg/dL Ur Leukocyte Esterase (NEGATIVE) Urine RBC /HPF Urine WBC (0-5/HPF) /HPF Ur Epithelial Cells (NOT SEEN) /HPF Amorphous Sediment (NOT SEEN) /HPF Urine Bacteria (0-FEW/HPF) /HPF Urine Mucus (NOT SEEN) /LPF Acetaminophen ug/mL Med Orders - Current: Current Medications Acetaminophen (Tylenol) 650 mg PO Q4H PRN PRN Reason: Pain (Mild 1-3)/fever Hydrocodone Bitart/Acetaminophen ([place] 325-10 Mg) 0.5 tab PO Q4H PRN PRN Reason: Pain (moderate 4-6) Last Admin: 04/01/19 06:25 Dose: 0.5 tab Famotidine (Pepcid) 20 mg PO BID [facility] Last Admin: 04/01/19 09:20 Dose: 20 mg Hydrochlorothiazide (Hydrochlorothiazide) 25 mg PO DAILY [facility] Last Admin: 04/01/19 09:19 Dose: 25 mg Lisinopril (Prinivil) 20 mg PO DAILY [facility] Last Admin: 04/01/19 09:21 Dose: 20 mg Morphine Sulfate (Morphine) 2 mg IVPUSH Q2H PRN PRN Reason: Pain (severe 7-10) Last Admin: 04/01/19 08:35 Dose: 2 mg Ondansetron HCl (Zofran) 4 mg IVPUSH Q6H PRN PRN Reason: Nausea/Vomiting Last Admin: 04/01/19 08:32 Dose: 4 mg Pantoprazole Sodium (Protonix Iv) 40 mg IVPUSH Q12HR [facility] Last Admin: 04/01/19 09:20 Dose: 40 mg Potassium Chloride (Klor-Con 10) 10 meq PO DAILY [facility] Last Admin: 04/01/19 09:20 Dose: 10 meq Promethazine HCl (Phenergan) 6.25 mg IM Q6H PRN PRN Reason: Nausea/Vomiting Zolpidem Tartrate (Ambien) 5 mg PO BEDTIME PRN PRN Reason: Sleep Discontinued Medications Famotidine (Pepcid) 20 mg IVPUSH ONETIME ONE Stop: 03/31/19 19:38 Last Admin: 03/31/19 19:59 Dose: 20 mg Famotidine (Pepcid) 20 mg PO BID [facility] Last Admin: 04/01/19 01:23 Dose: Not Given Hydromorphone HCl (Dilaudid) 1 mg IVPUSH ONETIME ONE Stop: 03/31/19 19:36 Last Admin: 03/31/19 20:00 Dose: 1 mg Hydromorphone HCl (Dilaudid) 1 mg IVPUSH ONETIME ONE Stop: 03/31/19 21:10 Last Admin: 03/31/19 21:19 Dose: 1 mg Sodium Chloride (Normal Saline) 1,000 mls @ 999 mls/hr IV .BOLUS ONE Stop: 03/31/19 20:34 Last Admin: 03/31/19 19:58 Dose: 999 mls/hr Potassium Chloride 10 meq/ (Premix) 100 mls @ 100 mls/hr IV ONETIME ONE Stop: 03/31/19 22:10 Last Admin: 03/31/19 21:18 Dose: 100 mls/hr Sodium Chloride (Normal Saline) 500 mls @ 250 mls/hr IV ONETIME ONE Stop: 03/31/19 23:21 Last Admin: 03/31/19 21:22 Dose: 250 mls/hr Sodium Chloride (Normal Saline) 1,000 mls @ 125 mls/hr IV ASDIRECTED DEE Stop: 04/01/19 08:29 Last Admin: 04/01/19 00:59 Dose: 125 mls/hr Iopamidol (Isovue-300 (61%)) 75 ml IVPUSH ONETIME ONE Stop: 03/31/19 19:04 Last Admin: 03/31/19 19:50 Dose: 75 ml Non-Formulary Medication (Ascorbic Acid [Vitamin C]) 1 tab PO DAILY DEE Ondansetron HCl (Zofran) 4 mg IV ONETIME ONE Stop: 03/31/19 19:35 Last Admin: 03/31/19 19:58 Dose: 4 mg - Exam General: Alert, Oriented, Cooperative HEENT: Pupils Equal, Pupils Reactive, EOMI Neck: Supple, Trachea Midline, No JVD Lungs: Clear to Auscultation, Normal Respiratory Effort Cardiovascular: Regular Rate, Regular Rhythm GI/Abdominal Exam: Normal Bowel Sounds, Soft, Non-Tender, No Organomegaly, No Distention, No Mass (Female) Exam: Deferred Back Exam: Normal Inspection, Full Range of Motion Extremities: Normal Inspection, Normal Range of Motion, Non-Tender, No Pedal Edema, Normal Capillary Refill Skin: Warm, Dry, Intact Psy/Mental Status: Alert, Normal Affect, Normal Mood - Problem List & Annotations (1) Nausea and vomiting SNOMED Code(s): 15469704 Code(s): R11.2 - NAUSEA WITH VOMITING, UNSPECIFIED Status: Acute Current Visit: Yes (2) Abdominal pain SNOMED Code(s): 13978708 Code(s): R10.9 - UNSPECIFIED ABDOMINAL PAIN Status: Acute Current Visit: No Qualifiers: Abdominal location: generalized Qualified Code(s): R10.84 - Generalized abdominal pain (3) Microscopic hematuria SNOMED Code(s): 362783785 Code(s): R31.29 - OTHER MICROSCOPIC HEMATURIA Status: Chronic Current Visit: Yes (4) Low TSH level SNOMED Code(s): 324270432 Code(s): R79.89 - OTHER SPECIFIED ABNORMAL FINDINGS OF BLOOD CHEMISTRY Status: Acute Current Visit: Yes - Problem List Review Problem List Initiated/Reviewed/Updated: Yes - My Orders Last 24 Hours: My Active Orders 10/16/19 00:18 Height and Weight [RC] 0600 Intake and Output [RC] QSHIFT Oxygen Therapy [RC] PRN Up ad Elen [RC] ASDIRECTED VTE/DVT Education [RC] Vital Signs [RC] Q4H Acetaminophen [Tylenol] 650 mg PO Q4H PRN Acetaminophen/HYDROcodone [[place] 325-10 MG] 0.5 tab PO Q4H PRN Morphine 2 mg IVPUSH Q2H PRN Ondansetron [Zofran] 4 mg IVPUSH Q6H PRN Promethazine [Phenergan] 6.25 mg IM Q6H PRN Zolpidem [Ambien] 5 mg PO BEDTIME PRN Resuscitation Status Routine 04/01/19 00:19 Notify Provider Vital Signs [RC] ASDIRECTED Sequential Compression Device [OM.PC] Per Unit Routine 04/01/19 00:20 Antiembolic Devices [RC] 04/01/19 00:21 Pantoprazole [ProTONIX IV] 40 mg IVPUSH Q12HR 04/01/19 00:23 CLOSTRIDIUM DIFFICILE TOX RFLX [MREF] Routine 04/01/19 00:25 Isolation [COMM] Stat 04/01/19 00:34 CULTURE STOOL [] Routine PARASITES, STOOL O&P [MREF] Routine 04/01/19 09:00 Famotidine [Pepcid] 20 mg PO BID Lisinopril [Prinivil] 20 mg PO DAILY Potassium Chloride [Klor-Con 10] 10 meq PO DAILY hydroCHLOROthiazide 25 mg PO DAILY 04/01/19 Breakfast Full Liquid Diet [DIET] - Plan Plan:: 59-year-old the female with past medical history of chronic abdominal pain, small bowel obstruction in 2014, appendectomy and cholecystectomy several years ago, 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 Patient also admitted losing 7 pounds since past few weeks. She was seen at [facility] few weeks ago. On admission her CBC, CMP, lipase, CT abdomen and pelvis are unremarkable #Abdominal pain Acute on chronic -On admission I stopped her oral omeprazole and changed it to IV Protonix 40 mg twice a day and started Pepcid 20 mg twice a day orally -I discussed the case with Dr. Hale from surgery. He recommended EGD at this time but he does not think she needs to have colonoscopy. However I still advise patient to speak to her primary care doctor and her machine feeder floorperson in regards to doing colonoscopy -Continue Full liquid diet for now then NPO at 6 am tomorrow #Nausea and vomiting Antiemetics as needed -1 L of normal saline infusion given on admission #Diarrhea -C. difficile, stool culture and parasites ordered -Awaiting stool sample #Weight loss Possibly from nausea, vomiting, diarrhea. However there could be underlying cause -TSH is low. ordered Free T4 and T3 We discussed upper endoscopy and colonoscopy considering the risk of having family history of colon cancer We discussed that she needs to follow up with her primary care provider for the weight loss #Low TSH -Ordering Free T4 and T3 #Microscopic hematuria Patient stated that she is aware of her microscopic hematuria. She said she had it for a long time and her toddler lead teacher is aware. I still encouraged her to to discussed again with her primary care provider and toddler lead teacher #History of left nephrectomy We discussed avoiding any type of NSAIDs DVT prophylaxis: STDs
[2019-04-01] MEDS: Zolpidem 5 MG Tab PO PRN (23:34)
[2019-04-02] MEDS ORDERED: Potassium Chloride 10 MEQ Tab.ER PO ONE ×2 (07:09→13:45)
[2019-04-02] MEDS ORDERED: Benzocaine 20% Topical Spray UD MUCMEM ONE ×2 (07:22→10:38)
[2019-04-02] MEDS ORDERED: Midazolam 1 MG/ML 2 ML SDV ONE (07:22)
[2019-04-02] MEDS: Morphine 2 MG/ML Syringe IVPUSH PRN ×4 (07:39→21:41)
[2019-04-02] MEDS ORDERED: Midazolam 1 MG/ML 2 ML SDV IV ONE ×5 (10:38→10:43)
[2019-04-02] MEDS: Acetaminophen/HYDROcodone 325-10 MG Tab PO PRN ×2 (11:34→16:11)
[2019-04-02] MEDS: Hydrochlorothiazide 25 MG Tab PO SCH (11:35)
[2019-04-02] MEDS: Lisinopril 20 MG Tab PO SCH (11:36)
[2019-04-02] MEDS: Famotidine 20 MG Tab PO SCH ×2 (11:36→20:52)
[2019-04-02] MEDS: Potassium Chloride 10 MEQ Tab.ER PO SCH (11:37)
[2019-04-02] MEDS: Ondansetron 4 MG/2 ML SDV IVPUSH PRN ×2 (11:37→20:52)
[2019-04-02] MEDS: Pantoprazole 40 MG Vial IVPUSH SCH ×2 (11:55→20:52)
[2019-04-02] MEDS ORDERED: Sodium Chloride 0.9% 10 ML Syringe FLUSH PRN (12:24)
--- NOTE | 2019-04-02 12:39 | OR ---
DATE: 04/02/2019 PREOPERATIVE DIAGNOSIS: Epigastric abdominal pain. POSTOPERATIVE DIAGNOSIS: Epigastric abdominal pain. PROCEDURE: EGD with biopsy for H. pylori and permanent section. ANESTHESIA: Conscious sedation with IV Versed. SPECIMEN: Biopsy x2. OPERATIVE FINDINGS: Basically normal EGD. INDICATION FOR PROCEDURE: This 59-year-old female has been admitted to the hospital with epigastric abdominal pain. She has had multiple abdominal surgeries. Her symptoms seemed to be related upper abdominal GI tract and is more symptomatic when she is fed a regular diet. PROCEDURE IN DETAIL: After adequate preparation, a gastroscope was inserted into the esophagus. This was passed down to the distal esophagus. She has a very small eversion of the stomach, but not really a true hiatal hernia. There is no evidence of reflux esophagitis or ulcerations or strictures. No masses are present. The scope was advanced into the stomach. Both forward and retroflexed views were done and are normal. The biopsy of the pre-pyloric antrum was taken x2; one for H. pylori evaluation, the other for permanent section. The scope was advanced through the pylorus, which was normal in the first and second parts of the duodenum without ulceration or abnormalities. Air was suctioned from the stomach and the scope removed. [facility] /[id number]
[2019-04-02] MEDS ORDERED: Enoxaparin 40 MG/0.4 ML Syringe SUBCUT SCH (19:30)
--- NOTE | 2019-04-02 20:20 | PCM.PN ---
- General Info Date of Service: 04/02/19 Admission Dx/Problem (Free Text): Admission Diagnosis/Problem Admission Diagnosis/Problem Abdominal pain Subjective Update: Patient underwent upper EGD today. Her EGD findings were unremarkable. However biopsy were sent out. Patient stated that she is somewhat feeling better however still having nausea after eating. she is still having same abdominal pain also slightly improved. She has not had a bowel movement since admission. She denies fever, chills, vomiting, chest pain, shortness breath, urinary symptoms, any other symptoms or concerns - Patient Data Vitals - Most Recent: Last Vital Signs Temp 37.3 C 04/02/19 16:00 Pulse 53 L 04/02/19 16:00 Resp 18 04/02/19 16:00 BP 97/50 L 04/02/19 16:00 Pulse Ox 95 04/02/19 16:00 Weight - Most Recent: 68.402 kg I&O - Last 24 Hours: Intake & Output 04/02/19 04/02/19 04/02/19 06:59 14:59 22:59 Intake Total 240 200 Output Total 1000 1000 Balance -1000 -760 200 Lab Results Last 24 Hours: Laboratory Results - last 24 hr 04/01/19 04/01/19 04/02/19 Range/Units 06:20 06:20 10:47 Free T4 1.02 (0.58-1.64) ng/dL Total T3 99 (87-178) ng/dL POC H. pylori Urease Negative Xu Results Last 24 Hours: Microbiology 03/31/19 18:08 Aerobic Blood Culture - Preliminary Blood NO GROWTH AFTER 2 DAYS Anaerobic Blood Culture - Preliminary NO GROWTH AFTER 2 DAYS Med Orders - Current: Current Medications Acetaminophen (Tylenol) 650 mg PO Q4H PRN PRN Reason: Pain (Mild 1-3)/fever Hydrocodone Bitart/Acetaminophen ([place] 325-10 Mg) 0.5 tab PO Q4H PRN PRN Reason: Pain (moderate 4-6) Last Admin: 04/02/19 16:11 Dose: 0.5 tab Enoxaparin Sodium (Lovenox) 40 mg SUBCUT Q24H [facility] Famotidine (Pepcid) 20 mg PO BID [facility] Last Admin: 04/02/19 11:36 Dose: 20 mg Hydrochlorothiazide (Hydrochlorothiazide) 25 mg PO DAILY [facility] Last Admin: 04/02/19 11:35 Dose: 25 mg Lisinopril (Prinivil) 20 mg PO DAILY [facility] Last Admin: 04/02/19 11:36 Dose: 20 mg Morphine Sulfate (Morphine) 2 mg IVPUSH Q2H PRN PRN Reason: Pain (severe 7-10) Last Admin: 04/02/19 14:05 Dose: 2 mg Ondansetron HCl (Zofran) 4 mg IVPUSH Q6H PRN PRN Reason: Nausea/Vomiting Last Admin: 04/02/19 11:37 Dose: 4 mg Pantoprazole Sodium (Protonix Iv) 40 mg IVPUSH Q12HR [facility] Last Admin: 04/02/19 11:55 Dose: 40 mg Potassium Chloride (Klor-Con 10) 10 meq PO DAILY [facility] Last Admin: 04/02/19 11:37 Dose: 10 meq Promethazine HCl (Phenergan) 6.25 mg IM Q6H PRN PRN Reason: Nausea/Vomiting Last Admin: 04/02/19 14:06 Dose: 6.25 mg Sodium Chloride (Saline Flush) 10 ml FLUSH ASDIRECTED PRN PRN Reason: Keep Vein Open Zolpidem Tartrate (Ambien) 5 mg PO BEDTIME PRN PRN Reason: Sleep Last Admin: 04/01/19 23:34 Dose: 5 mg Discontinued Medications Benzocaine (Hurricaine One 20%) Confirm Administered Dose 1 each MUCMEM .STK- MED ONE Stop: 04/02/19 07:23 Benzocaine (Hurricaine One 20%) 1 each MUCMEM .STK-MED ONE Stop: 04/02/19 10:39 Last Admin: 04/02/19 10:38 Dose: 1 each Famotidine (Pepcid) 20 mg IVPUSH ONETIME ONE Stop: 03/31/19 19:38 Last Admin: 03/31/19 19:59 Dose: 20 mg Famotidine (Pepcid) 20 mg PO BID [facility] Last Admin: 04/01/19 01:23 Dose: Not Given Hydromorphone HCl (Dilaudid) 1 mg IVPUSH ONETIME ONE Stop: 03/31/19 19:36 Last Admin: 03/31/19 20:00 Dose: 1 mg Hydromorphone HCl (Dilaudid) 1 mg IVPUSH ONETIME ONE Stop: 03/31/19 21:10 Last Admin: 03/31/19 21:19 Dose: 1 mg Sodium Chloride (Normal Saline) 1,000 mls @ 999 mls/hr IV .BOLUS ONE Stop: 03/31/19 20:34 Last Admin: 03/31/19 19:58 Dose: 999 mls/hr Potassium Chloride 10 meq/ (Premix) 100 mls @ 100 mls/hr IV ONETIME ONE Stop: 03/31/19 22:10 Last Admin: 03/31/19 21:18 Dose: 100 mls/hr Sodium Chloride (Normal Saline) 500 mls @ 250 mls/hr IV ONETIME ONE Stop: 03/31/19 23:21 Last Admin: 03/31/19 21:22 Dose: 250 mls/hr Sodium Chloride (Normal Saline) 1,000 mls @ 125 mls/hr IV ASDIRECTED DEE Stop: 04/01/19 08:29 Last Admin: 04/01/19 00:59 Dose: 125 mls/hr Iopamidol (Isovue-300 (61%)) 75 ml IVPUSH ONETIME ONE Stop: 03/31/19 19:04 Last Admin: 03/31/19 19:50 Dose: 75 ml Midazolam HCl (Versed 1 Mg/Ml) Confirm Administered Dose 4 mg .ROUTE .STK-MED ONE Stop: 04/02/19 07:23 Midazolam HCl (Versed 1 Mg/Ml) 1 mg IV .STK-MED ONE Stop: 04/02/19 10:39 Last Admin: 04/02/19 10:38 Dose: 1 mg Midazolam HCl (Versed 1 Mg/Ml) 1 mg IV .STK-MED ONE Stop: 04/02/19 10:41 Last Admin: 04/02/19 10:40 Dose: 1 mg Midazolam HCl (Versed 1 Mg/Ml) 1 mg IV .STK-MED ONE Stop: 04/02/19 10:42 Last Admin: 04/02/19 10:41 Dose: 1 mg Midazolam HCl (Versed 1 Mg/Ml) 0.5 mg IV .STK-MED ONE Stop: 04/02/19 10:43 Last Admin: 04/02/19 10:42 Dose: 0.5 mg Midazolam HCl (Versed 1 Mg/Ml) 0.5 mg IV .STK-MED ONE Stop: 04/02/19 10:44 Last Admin: 04/02/19 10:43 Dose: 0.5 mg Non-Formulary Medication (Ascorbic Acid [Vitamin C]) 1 tab PO DAILY DEE Ondansetron HCl (Zofran) 4 mg IV ONETIME ONE Stop: 03/31/19 19:35 Last Admin: 03/31/19 19:58 Dose: 4 mg Potassium Chloride (Klor-Con 10) 40 meq PO ONETIME ONE Stop: 04/02/19 07:10 Last Admin: 04/02/19 13:58 Dose: 40 meq Potassium Chloride (Klor-Con 10) 40 meq PO ONETIME ONE Stop: 04/02/19 13:46 Last Admin: 04/02/19 14:10 Dose: Not Given - Exam General: Alert, Oriented, Cooperative, No Acute Distress. No: Mild Distress, Moderate Distress, Severe Distress, Sedated, Lethargic, Obtunded HEENT: Pupils Equal, Pupils Reactive, EOMI, Mucous Membr. Moist/[place] Neck: Supple, Trachea Midline, No JVD Lungs: Clear to Auscultation, Normal Respiratory Effort Cardiovascular: Regular Rate, Regular Rhythm GI/Abdominal Exam: Normal Bowel Sounds, Soft, No Organomegaly, No Distention, No Mass, Tender (Epigastric). No: Distended, Guarding, Rigid, Rebound (Female) Exam: Deferred Extremities: Normal Inspection, Normal Range of Motion, Non-Tender, No Pedal Edema, Normal Capillary Refill Skin: Warm, Dry, Intact Neurological: No New Focal Deficit Psy/Mental Status: Alert, Normal Affect, Normal Mood - Problem List & Annotations (1) Nausea and vomiting SNOMED Code(s): 85844314 Code(s): R11.2 - NAUSEA WITH VOMITING, UNSPECIFIED Status: Acute Current Visit: Yes Qualifiers: Vomiting type: bilious vomiting Qualified Code(s): R11.14 - Bilious vomiting (2) Abdominal pain SNOMED Code(s): 24012207 Code(s): R10.9 - UNSPECIFIED ABDOMINAL PAIN Status: Acute Current Visit: Yes Qualifiers: Abdominal location: generalized Qualified Code(s): R10.84 - Generalized abdominal pain (3) Microscopic hematuria SNOMED Code(s): 440024797 Code(s): R31.29 - OTHER MICROSCOPIC HEMATURIA Status: Chronic Current Visit: Yes (4) Low TSH level SNOMED Code(s): 704016691 Code(s): R79.89 - OTHER SPECIFIED ABNORMAL FINDINGS OF BLOOD CHEMISTRY Status: Acute Current Visit: Yes - Problem List Review Problem List Initiated/Reviewed/Updated: Yes - My Orders Last 24 Hours: My Active Orders 04/02/19 12:24 Sodium Chloride 0.9% [Saline Flush] 10 ml FLUSH ASDIRECTED PRN Saline Lock Insert [OM.PC] Routine 04/02/19 19:30 Enoxaparin [Lovenox] 40 mg SUBCUT Q24H 04/02/19 Lunch Heart Healthy Diet [DIET] - Plan Plan:: 59-year-old the female with past medical history of chronic abdominal pain, small bowel obstruction in 2014, appendectomy and cholecystectomy several years ago, 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 Patient also admitted losing 7 pounds since past few weeks. She was seen at [facility] few weeks ago. On admission her CBC, CMP, lipase, CT abdomen and pelvis are unremarkable #Abdominal pain Acute on chronic. Status post upper GI endoscopy on 04/02/19 with no significant findings. -Awaiting pathology result including H. pylori -On admission I stopped her oral omeprazole and changed it to IV Protonix 40 mg twice a day and started Pepcid 20 mg twice a day orally I advise patient to speak to her primary care doctor and her center mgr in regards to doing colonoscopy -Advanced diet as tolerated #Nausea and vomiting Antiemetics as needed -1 L of normal saline infusion given on admission #Diarrhea -C. difficile, stool culture and parasites ordered -Awaiting stool sample #Weight loss Possibly from nausea, vomiting, diarrhea. However there could be underlying cause -TSH is low. ordered Free T4 and T3 We discussed upper endoscopy and colonoscopy considering the risk of having family history of colon cancer We discussed that she needs to follow up with her primary care provider for the weight loss #Subclinical hyperthyroidism Low TSH and Free T4 and T3 are normal -She was advised to follow-up with her primary care provider and repeat testing in 4-8 weeks #Microscopic hematuria Patient stated that she is aware of her microscopic hematuria. She said she had it for a long time and her curriculum counselor is aware. I still encouraged her to to discussed again with her primary care provider and curriculum counselor #History of left nephrectomy We discussed avoiding any type of NSAIDs DVT prophylaxis: Radha
[2019-04-02] MEDS ORDERED: Sodium Chloride 0.9% 1,000 ML IV ONE (21:02)
[2019-04-02] MEDS: Sodium Chloride 0.9% 1,000 ML IV SCH (22:00)
[2019-04-02] MEDS: Zolpidem 5 MG Tab PO PRN (22:53)
[2019-04-03] MEDS: Sodium Chloride 0.9% 1,000 ML IV SCH (05:46)
[2019-04-03 07:31] VITALS: BP 119/62; PULSE 54
[2019-04-03] MEDS: Acetaminophen/HYDROcodone 325-10 MG Tab PO PRN (08:55)
[2019-04-03] MEDS: Hydrochlorothiazide 25 MG Tab PO SCH (08:55)
[2019-04-03] MEDS: Famotidine 20 MG Tab PO SCH (08:58)
[2019-04-03] MEDS: Potassium Chloride 10 MEQ Tab.ER PO SCH (08:59)
[2019-04-03] MEDS: Lisinopril 20 MG Tab PO SCH (08:59)
[2019-04-03] MEDS: Pantoprazole 40 MG Vial IVPUSH SCH (09:00)
--- NOTE | 2019-04-03 10:48 | PCM.DCSUM1 ---
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 Patient also admitted losing 7 pounds since past few weeks. She was seen at [facility] few weeks ago. On admission her CBC, CMP, lipase, CT abdomen and pelvis are unremarkable #Abdominal pain Acute on chronic. Status post upper GI endoscopy on 04/02/19 with no significant findings. -Awaiting pathology result including H. pylori. Patient was advised to let her primary care doctor for follow-up with results. -On admission I stopped her oral omeprazole and changed it to IV Protonix 40 mg twice a day and started Pepcid 20 mg twice a day orally. On discharge we will continue with her home omeprazole dose and stop pantoprazole and Pepcid. I advise patient to speak to her primary care doctor and her key bed installer in regards to doing colonoscopy #Nausea and vomiting Antiemetics as needed -1 L of normal saline infusion given on admission #Diarrhea -C. difficile, stool culture and parasites ordered -Patient did not have bowel movement during admission. #Weight loss Possibly from nausea, vomiting, diarrhea. However there could be underlying cause -TSH is low. ordered Free T4 and T3 We discussed upper endoscopy and colonoscopy considering the risk of having family history of colon cancer We discussed that she needs to follow up with her primary care provider for the weight loss #Subclinical hyperthyroidism Low TSH and Free T4 and T3 are normal -She was advised to follow-up with her primary care provider and repeat testing in 4-8 weeks #Microscopic hematuria Patient stated that she is aware of her microscopic hematuria. She said she had it for a long time and her corporate receptionist is aware. I still encouraged her to to discussed again with her primary care provider and corporate receptionist #History of left nephrectomy We discussed avoiding any type of NSAIDs DVT prophylaxis: Lovenox Diagnosis: Stroke: No - Discharge Data Discharge Date: 04/03/19 Discharge Disposition: Home, Self-Care 01 Condition: Good - Referral to Home Health Date of Face to Face Encounter: 04/03/19 Primary Care Physician: PCP Unobtainable - Discharge Diagnosis/Problem(s) (1) Nausea and vomiting SNOMED Code(s): 93170121 ICD Code: R11.2 - NAUSEA WITH VOMITING, UNSPECIFIED Status: Resolved Current Visit: Yes Qualifiers: Vomiting type: bilious vomiting Qualified Code(s): R11.14 - Bilious vomiting (2) Abdominal pain SNOMED Code(s): 17467321 ICD Code: R10.9 - UNSPECIFIED ABDOMINAL PAIN Status: Chronic Current Visit: Yes Qualifiers: Abdominal location: generalized Qualified Code(s): R10.84 - Generalized abdominal pain (3) Microscopic hematuria SNOMED Code(s): 220246661 ICD Code: R31.29 - OTHER MICROSCOPIC HEMATURIA Status: Chronic Current Visit: Yes (4) Low TSH level SNOMED Code(s): 844433254 ICD Code: R79.89 - OTHER SPECIFIED ABNORMAL FINDINGS OF BLOOD CHEMISTRY Status: Acute Current Visit: Yes - Patient Instructions Diet: Heart Healthy Diet, No Alcoholic Beverages Activity: As Tolerated Showering/Bathing: May Shower Notify Provider of: Fever, Increased Pain, Swelling and Redness, Nausea and/or Vomiting - Discharge Plan *PRESCRIPTION DRUG MONITORING PROGRAM REVIEWED*: No *COPY OF PRESCRIPTION DRUG MONITORING REPORT IN PATIENT GARRY: No Home Medications: Home Meds Ascorbic Acid [Vitamin C] 1 tab PO DAILY 02/27/14 [History] Lisinopril 1 tab PO DAILY 02/27/14 [History] Omeprazole 1 tab PO BID 02/27/14 [History] hydroCHLOROthiazide [Hydrochlorothiazide] 25 mg PO DAILY 02/27/14 [History] Potassium Chloride [Klor-Con 10] 10 meq PO DAILY 09/17/16 [History] Promethazine HCl 1 supp RC ASDIRECTED PRN 03/31/19 [History] Patient Handouts: Abdominal Pain, Adult, [id number], Esophagogastroduodenoscopy, Care After Referrals: Katherine Fowler MD [Physician] - - Discharge Summary/Plan Comment DC Time >30 min.: No - General Info Date of Service: 04/03/19 Admission Dx/Problem (Free Text: Admission Diagnosis/Problem Admission Diagnosis/Problem Abdominal pain Subjective Update: Patient stated that she is somewhat feeling better . Abdominal pain improved. She has not had nausea or vomiting since yesterday. She is passing gas but no bowel movement since admission. She denies any new symptoms. She denies fever, chills, vomiting, chest pain, shortness breath, urinary symptoms, any other symptoms or concerns - Patient Data Vitals - Most Recent: Last Vital Signs Temp 36.6 C 04/03/19 07:30 Pulse 54 L 04/03/19 07:30 Resp 16 04/03/19 07:30 BP 119/62 04/03/19 08:59 Pulse Ox 99 04/03/19 07:30 Weight - Most Recent: 69.127 kg I&O - Last 24 hours: Intake & Output 04/02/19 04/03/19 04/03/19 22:59 06:59 14:59 Intake Total 200 600 Output Total 1000 Balance 200 -400 Lab Results - Last 24 hrs: Laboratory Results - last 24 hr 04/02/19 Range/Units 10:47 POC H. pylori Urease Negative ELIAZAR Results - Last 24 hrs: Microbiology 03/31/19 18:08 Aerobic Blood Culture - Preliminary Blood NO GROWTH AFTER 2 DAYS Anaerobic Blood Culture - Preliminary NO GROWTH AFTER 2 DAYS Med Orders - Current: Current Medications Acetaminophen (Tylenol) 650 mg PO Q4H PRN PRN Reason: Pain (Mild 1-3)/fever Hydrocodone Bitart/Acetaminophen ([place] 325-10 Mg) 0.5 tab PO Q4H PRN PRN Reason: Pain (moderate 4-6) Last Admin: 04/03/19 08:55 Dose: 0.5 tab Enoxaparin Sodium (Lovenox) 40 mg SUBCUT Q24H [facility] Last Admin: 04/02/19 20:52 Dose: 40 mg Famotidine (Pepcid) 20 mg PO BID [facility] Last Admin: 04/03/19 08:58 Dose: 20 mg Hydrochlorothiazide (Hydrochlorothiazide) 25 mg PO DAILY [facility] Last Admin: 04/03/19 08:55 Dose: 25 mg Sodium Chloride (Normal Saline) 1,000 mls @ 125 mls/hr IV ASDIRECTED [facility] Last Admin: 04/03/19 05:46 Dose: 125 mls/hr Lisinopril (Prinivil) 20 mg PO DAILY [facility] Last Admin: 04/03/19 08:59 Dose: 20 mg Morphine Sulfate (Morphine) 2 mg IVPUSH Q2H PRN PRN Reason: Pain (severe 7-10) Last Admin: 04/02/19 21:41 Dose: 2 mg Ondansetron HCl (Zofran) 4 mg IVPUSH Q6H PRN PRN Reason: Nausea/Vomiting Last Admin: 04/02/19 20:52 Dose: 4 mg Pantoprazole Sodium (Protonix Iv) 40 mg IVPUSH Q12HR [facility] Last Admin: 04/03/19 09:00 Dose: 40 mg Potassium Chloride (Klor-Con 10) 10 meq PO DAILY [facility] Last Admin: 04/03/19 08:59 Dose: 10 meq Promethazine HCl (Phenergan) 6.25 mg IM Q6H PRN PRN Reason: Nausea/Vomiting Last Admin: 04/02/19 14:06 Dose: 6.25 mg Sodium Chloride (Saline Flush) 10 ml FLUSH ASDIRECTED PRN PRN Reason: Keep Vein Open Zolpidem Tartrate (Ambien) 5 mg PO BEDTIME PRN PRN Reason: Sleep Last Admin: 04/02/19 22:53 Dose: 5 mg Discontinued Medications Benzocaine (Hurricaine One 20%) Confirm Administered Dose 1 each MUCMEM .STK- MED ONE Stop: 04/02/19 07:23 Benzocaine (Hurricaine One 20%) 1 each MUCMEM .STK-MED ONE Stop: 04/02/19 10:39 Last Admin: 04/02/19 10:38 Dose: 1 each Famotidine (Pepcid) 20 mg IVPUSH ONETIME ONE Stop: 03/31/19 19:38 Last Admin: 03/31/19 19:59 Dose: 20 mg Famotidine (Pepcid) 20 mg PO BID [facility] Last Admin: 04/01/19 01:23 Dose: Not Given Hydromorphone HCl (Dilaudid) 1 mg IVPUSH ONETIME ONE Stop: 03/31/19 19:36 Last Admin: 03/31/19 20:00 Dose: 1 mg Hydromorphone HCl (Dilaudid) 1 mg IVPUSH ONETIME ONE Stop: 03/31/19 21:10 Last Admin: 03/31/19 21:19 Dose: 1 mg Sodium Chloride (Normal Saline) 1,000 mls @ 999 mls/hr IV .BOLUS ONE Stop: 03/31/19 20:34 Last Admin: 03/31/19 19:58 Dose: 999 mls/hr Potassium Chloride 10 meq/ (Premix) 100 mls @ 100 mls/hr IV ONETIME ONE Stop: 03/31/19 22:10 Last Admin: 03/31/19 21:18 Dose: 100 mls/hr Sodium Chloride (Normal Saline) 500 mls @ 250 mls/hr IV ONETIME ONE Stop: 03/31/19 23:21 Last Admin: 03/31/19 21:22 Dose: 250 mls/hr Sodium Chloride (Normal Saline) 1,000 mls @ 125 mls/hr IV ASDIRECTED DEE Stop: 04/01/19 08:29 Last Admin: 04/01/19 00:59 Dose: 125 mls/hr Sodium Chloride (Normal Saline) 1,000 mls @ 999 mls/hr IV .BOLUS ONE Stop: 04/02/19 22:02 Last Admin: 04/02/19 20:45 Dose: 999 mls/hr Iopamidol (Isovue-300 (61%)) 75 ml IVPUSH ONETIME ONE Stop: 03/31/19 19:04 Last Admin: 03/31/19 19:50 Dose: 75 ml Midazolam HCl (Versed 1 Mg/Ml) Confirm Administered Dose 4 mg .ROUTE .STK-MED ONE Stop: 04/02/19 07:23 Midazolam HCl (Versed 1 Mg/Ml) 1 mg IV .STK-MED ONE Stop: 04/02/19 10:39 Last Admin: 04/02/19 10:38 Dose: 1 mg Midazolam HCl (Versed 1 Mg/Ml) 1 mg IV .STK-MED ONE Stop: 04/02/19 10:41 Last Admin: 04/02/19 10:40 Dose: 1 mg Midazolam HCl (Versed 1 Mg/Ml) 1 mg IV .STK-MED ONE Stop: 04/02/19 10:42 Last Admin: 04/02/19 10:41 Dose: 1 mg Midazolam HCl (Versed 1 Mg/Ml) 0.5 mg IV .STK-MED ONE Stop: 04/02/19 10:43 Last Admin: 04/02/19 10:42 Dose: 0.5 mg Midazolam HCl (Versed 1 Mg/Ml) 0.5 mg IV .STK-MED ONE Stop: 04/02/19 10:44 Last Admin: 04/02/19 10:43 Dose: 0.5 mg Non-Formulary Medication (Ascorbic Acid [Vitamin C]) 1 tab PO DAILY DEE Ondansetron HCl (Zofran) 4 mg IV ONETIME ONE Stop: 03/31/19 19:35 Last Admin: 03/31/19 19:58 Dose: 4 mg Potassium Chloride (Klor-Con 10) 40 meq PO ONETIME ONE Stop: 04/02/19 07:10 Last Admin: 04/02/19 13:58 Dose: 40 meq Potassium Chloride (Klor-Con 10) 40 meq PO ONETIME ONE Stop: 04/02/19 13:46 Last Admin: 04/02/19 14:10 Dose: Not Given - Exam General: Reports: Alert, Oriented, Cooperative, No Acute Distress. Denies: Mild Distress, Moderate Distress, Severe Distress, Sedated, Lethargic, Obtunded HEENT: Reports: Pupils Equal, Pupils Reactive, EOMI, Mucous Membr. Moist/[place] Neck: Reports: Supple, Trachea Midline, No JVD Lungs: Reports: Clear to Auscultation, Normal Respiratory Effort Cardiovascular: Reports: Regular Rate, Regular Rhythm, No Murmurs GI/Abdominal Exam: Normal Bowel Sounds, Soft, Non-Tender, No Organomegaly, No Distention, No Mass, Tender (Mild epigastric tenderness with deep palpation). No: Distended, Guarding, Rigid, Rebound (Female) Exam: Deferred Rectal (Female) Exam: Deferred Back Exam: Reports: Normal Inspection, Full Range of Motion. Denies: CVA Tenderness (L), CVA Tenderness (R) Extremities: Normal Inspection, Normal Range of Motion, Non-Tender, No Pedal Edema, Normal Capillary Refill Skin: Reports: Warm, Dry, Intact Neurological: Reports: No New Focal Deficit Psy/Mental Status: Reports: Alert, Normal Affect, Normal Mood. Denies: Suicidal Ideation, Homicidal Ideation, Hallucinations, Withdrawal Symptoms
[2019-04-03] MEDS ORDERED: Midazolam 1 MG/ML 2 ML SDV IV ONE (11:59)
== END 2019-04-03 12:00 | disposition home or self-care (01) ==
LOC: DL.ED 16:43 → DL.MS 22:37
PROVIDERS: ADMIT Family Medicine; ATTEND Family Medicine
DX: R10.13 Epigastric pain (principal); R10.33 Periumbilical pain; R19.5 Other fecal abnormalities; R11.2 Nausea with vomiting, unspecified; R19.7 Diarrhea, unspecified; R63.4 Abnormal weight loss; E05.80 Other thyrotoxicosis without thyrotoxic crisis or storm; R31.29 Other microscopic hematuria; R79.89 Other specified abnormal findings of blood chemistry; I10 Essential (primary) hypertension; K21.9 Gastro-esophageal reflux disease without esophagitis; G43.909 Migraine, unspecified, not intractable, without status migrainosus; Z87.891 Personal history of nicotine dependence; Z90.5 Acquired absence of kidney; Z79.899 Other long term (current) drug therapy; Z90.49 Acquired absence of other specified parts of digestive tract; Z88.6 Allergy status to analgesic agent; Z88.5 Allergy status to narcotic agent; Z88.8 Allergy status to other drugs, medicaments and biological substances; Z88.1 Allergy status to other antibiotic agents
CPT/HCPCS: 36415; 43239; 74019; 74177; 80053; 80329; 81001; 82150; 83605; 83690; 83735; 84439; 84443; 84480; 84484; 85025; 85610; 87040; 87045; 87077; 87328; 87329; 87899; 93005; 96361; 96374; 96375; 96376; 99285; A9270; C9113; J1170; J1650; J2250; J2270; J2405; J2550; J3480; J3490; J7030; J7040; Q9967; 87046; G0480

== ENCOUNTER 2019-07-18 15:23 | Emergency (ER) | payer BC, OTHER ==
[2019-07-18 15:40] VITALS: BP 115/74; PULSE 76
--- NOTE | 2019-07-18 16:39 | EDM.PDOC ---
Scribed by Veronica Baker 07/18/19 1367 for Alex Dowling MD ED HPI GENERAL MEDICAL PROBLEM - General Chief Complaint: Respiratory Problem Stated Complaint: FLU, HARD TO BREATH Time Seen by Provider: 07/18/19 15:53 Source of Information: Reports: Patient, RN, RN Notes Reviewed History Limitations: Reports: No Limitations - History of Present Illness INITIAL COMMENTS - FREE TEXT/NARRATIVE: Patient presents to ER with complaints of cough with yellow sputum for 3-4 days. She states her niece was diagnosed with influenza B. No other symptoms. Onset: Gradual Duration: Getting Worse Location: Reports: Generalized Quality: Reports: Ache Severity: Mild Improves with: Reports: None Worsens with: Reports: None Associated Symptoms: Reports: No Other Symptoms - Related Data Allergies Allergy/AdvReac Type Severity Reaction Status Date / Time aspirin Allergy Nausea and Verified 03/31/19 16:54 Vomiting codeine Allergy Rash Verified 03/31/19 16:54 diphenhydramine Allergy Rash Verified 03/31/19 16:54 doxycycline Allergy Rash Verified 03/31/19 16:54 ketorolac tromethamine Allergy Anxiety Verified 03/31/19 16:54 [From Toradol] levofloxacin [From Levaquin] Allergy Rash Verified 03/31/19 16:54 metoclopramide HCl Allergy Anxiety Verified 03/31/19 16:54 [From Reglan] naproxen Allergy Rash Verified 03/31/19 16:54 sumatriptan [From Imitrex] Allergy Other Verified 03/31/19 16:54 sumatriptan succinate Allergy Other Verified 03/31/19 16:54 [From Imitrex] Home Meds: Home Meds Ascorbic Acid [Vitamin C] 1 tab PO DAILY 02/27/14 [History] Lisinopril 1 tab PO DAILY 02/27/14 [History] Omeprazole 1 tab PO BID 02/27/14 [History] hydroCHLOROthiazide [Hydrochlorothiazide] 25 mg PO DAILY 02/27/14 [History] Potassium Chloride [Klor-Con 10] 10 meq PO DAILY 09/17/16 [History] Promethazine HCl 1 supp RC ASDIRECTED PRN 03/31/19 [History] Past Medical History HEENT History: Reports: Impaired Vision Cardiovascular History: Reports: Hypertension Gastrointestinal History: Reports: Bowel Obstruction, GERD Genitourinary History: Reports: Other (See Below) Other Genitourinary History: left kidney removed SENIOR DESIGNER/ART DIRECTOR History: Reports: Other (See Below) Other SENIOR DESIGNER/ART DIRECTOR History: complete hysterectomy Musculoskeletal History: Reports: Back Pain, Chronic Neurological History: Reports: Migraines - Past Surgical History GI Surgical History: Reports: Appendectomy, Cholecystectomy, Hernia, Inguinal, Hernia Repair/Other Female Surgical History: Reports: Nephrectomy Musculoskeletal Surgical History: Reports: Arthroscopic Knee, Shoulder Surgery, Other (See Below) Other Musculoskeletal Surgeries/Procedures:: ankle left, torn meniscus bilateral , back surgery 2018. Neck surgery in May 28, 2018 Social & Family History - Family History Family Medical History: Noncontributory - Caffeine Use Caffeine Use: Reports: Coffee Caffeine Use Comment: 1 cup coffee in the morning - Living Situation & Occupation Living situation: Reports: with Family ED ROS GENERAL - Review of Systems Review Of Systems: Comprehensive ROS is negative, except as noted in HPI. ED EXAM, GENERAL - Physical Exam Exam: See Below Exam Limited By: No Limitations General Appearance: Alert, WD/WN, No Apparent Distress Eye Exam: Bilateral Eye: Normal Inspection Ears: Normal External Exam, Normal Canal, Hearing Grossly Normal, Normal TMs Nose: Other (clear runny nose ) Throat/Mouth: Normal Lips, Normal Teeth, Normal Gums, Normal Voice, No Airway Compromise, Other (clear post nasal drip. ) Head: Atraumatic, Normocephalic Neck: Normal Inspection, Supple, Non-Tender, Full Range of Motion Respiratory/Chest: No Respiratory Distress, No Accessory Muscle Use, Decreased Breath Sounds, Wheezing, Other (harsh cough). No: Crackles, Rales, Rhonchi Cardiovascular: Normal Peripheral Pulses, Regular Rate, Rhythm, No Edema, No Gallop, No JVD, No Murmur, No Rub GI/Abdominal: Normal Bowel Sounds, Soft, Non-Tender, No Organomegaly, No Distention, No Abnormal Bruit, No Mass (Female) Exam: Deferred Rectal (Female) Exam: Deferred Back Exam: Normal Inspection, Full Range of Motion, NT Extremities: Normal Inspection, Normal Range of Motion, Non-Tender, Normal Capillary Refill, No Pedal Edema Neurological: Alert, Oriented, CN II-XII Intact, Normal Cognition, Normal Gait, Normal Reflexes, No Motor/Sensory Deficits Psychiatric: Normal Affect, Normal Mood Skin Exam: Warm, Dry, Intact, Normal Color, No Rash Course - Vital Signs Last Recorded V/S: Last Vital Signs Temp 97.4 F 07/18/19 15:39 Pulse 76 07/18/19 15:39 Resp 18 07/18/19 15:39 BP 115/74 07/18/19 15:39 Pulse Ox 97 07/18/19 15:39 - Orders/Labs/Meds Labs: Influenza A and B: Negative. - Radiology Interpretation Free Text/Narrative:: Chest x-ray: No acute findings. See rad report. Departure - Departure Time of Disposition: 16:29 Disposition: Home, Self-Care 01 Condition: Fair Clinical Impression: COPD with acute exacerbation Acute bronchitis Qualifiers: Bronchitis organism: other organism Qualified Code(s): J20.8 - Acute bronchitis due to other specified organisms - Discharge Information *PRESCRIPTION DRUG MONITORING PROGRAM REVIEWED*: No *COPY OF PRESCRIPTION DRUG MONITORING REPORT IN PATIENT GARRY: No Instructions: Chronic Obstructive Pulmonary Disease Exacerbation, [id number] , Acute Bronchitis, Adult, [id number] Forms: ED Department Discharge Additional Instructions: RX: Z-JULIO. RX: Prednisone 20mg. RX: Tessalon 200mg. RX: Albuterol inhaler. Follow up in clinic if not improving in 5 to 7 days. Sepsis Event Note - Evaluation Sepsis Screening Result: No Definite Risk - Focused Exam Vital Signs: Vital Signs Temp Pulse Resp BP Pulse Ox 07/18/19 15:39 97.4 F 76 18 115/74 97 Date Exam was Performed: 07/18/19 Time Exam was Performed: 16:35 I have read and agree with the documentation that has been completed regarding this visit. By signing this record, I attest that the documentation was completed in my physical presence and is an accurate record of the encounter.
== END 2019-07-18 16:37 | disposition home or self-care (01) ==
LOC: DL.ED 15:23
DX: J20.9 Acute bronchitis, unspecified (principal); J44.0 Chronic obstructive pulmonary disease with (acute) lower respiratory infection; J44.1 Chronic obstructive pulmonary disease with (acute) exacerbation; I10 Essential (primary) hypertension; K21.9 Gastro-esophageal reflux disease without esophagitis; Z88.6 Allergy status to analgesic agent; Z88.5 Allergy status to narcotic agent; Z88.8 Allergy status to other drugs, medicaments and biological substances; Z88.1 Allergy status to other antibiotic agents; Z79.899 Other long term (current) drug therapy
CPT/HCPCS: 71046; 87804; 99283-25

== ENCOUNTER 2019-07-29 18:08 | Emergency (ER) | payer BC, OTHER ==
[2019-07-29] MEDS ORDERED: Acetaminophen/HYDROcodone 325-5 MG Tab PO ONE ×2 (18:09→20:45)
[2019-07-29 18:36] VITALS: BP 126/82; PULSE 74
--- NOTE | 2019-07-29 18:54 | EDM.PDOC ---
ED HPI GENERAL MEDICAL PROBLEM - General Chief Complaint: Flank Pain Stated Complaint: SHARP PAINS IN ONLY KIDNEY Time Seen by Provider: 07/29/19 18:35 Source of Information: Reports: Patient History Limitations: Reports: No Limitations - History of Present Illness INITIAL COMMENTS - FREE TEXT/NARRATIVE: Genesis presents to the ED with right flank plain. The pain started around 3pm this afternoon and has persisted. She describes the pain as sharp, constant, and non-radiating. She has a history of a solitary kidney and surgical removal was done years ago. Last year, she had similar flank pain and was transferred to [facility] in [place] because evaluation revealed a large renal cyst. The cyst ended up being drained and she followed with nephrology. She has done well until this time. Along with the right flank pain, she also has been experiencing chills. She denies fever, nausea, vomiting, dysuria, hematuria, urinary frequency, or urinary urgency. She tried taking tylenol but it did not help with the pain. She has avoided nsaids since nephrology visit. she has not had any recent injuries. She was evaluated about 2 weeks ago and given a prescription for azithromycin for respiratory symptoms. She denies tobacco use, illegal drug use, or regular alcohol use. 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 - Related Data Allergies Allergy/AdvReac Type Severity Reaction Status Date / Time aspirin Allergy Nausea and Verified 07/29/19 18:21 Vomiting codeine Allergy Rash Verified 07/29/19 18:21 diphenhydramine Allergy Rash Verified 07/29/19 18:21 doxycycline Allergy Rash Verified 07/29/19 18:21 ketorolac tromethamine Allergy Anxiety Verified 07/29/19 18:21 [From Toradol] levofloxacin [From Levaquin] Allergy Rash Verified 07/29/19 18:21 metoclopramide HCl Allergy Anxiety Verified 07/29/19 18:21 [From Reglan] naproxen Allergy Rash Verified 07/29/19 18:21 sumatriptan [From Imitrex] Allergy Other Verified 07/29/19 18:21 sumatriptan succinate Allergy Other Verified 07/29/19 18:21 [From Imitrex] Home Meds: Home Meds Ascorbic Acid [Vitamin C] 1 tab PO DAILY 02/27/14 [History] Lisinopril 1 tab PO DAILY 02/27/14 [History] Omeprazole 1 tab PO BID 02/27/14 [History] hydroCHLOROthiazide [Hydrochlorothiazide] 25 mg PO DAILY 02/27/14 [History] Potassium Chloride [Klor-Con 10] 10 meq PO DAILY 09/17/16 [History] Promethazine HCl 1 supp RC ASDIRECTED PRN 03/31/19 [History] Albuterol Sulfate [Albuterol Sulfate Hfa] 2 puff INH Q4H PRN 07/29/19 [History] Past Medical History HEENT History: Reports: Impaired Vision Cardiovascular History: Reports: Hypertension Gastrointestinal History: Reports: Bowel Obstruction, GERD Genitourinary History: Reports: Other (See Below) Other Genitourinary History: left kidney removed. 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 Neck surgery in May 28, 2018 Social & Family History - Family History Family Medical History: Noncontributory - Tobacco Use Smoking Status *Q: Former Smoker Used Tobacco, but Quit: Yes Month/Year Tobacco Last Used: 4 Tobacco Use Comment: stopped smoking 4 years ago - Caffeine Use Caffeine Use: Reports: Coffee, Soda Caffeine Use Comment: 1 cup coffee in the morning - Alcohol Use Alcohol Use History: No - Recreational Drug Use Recreational Drug Use: No - Living Situation & Occupation Living situation: Reports: with Family ED ROS GENERAL - Review of Systems Review Of Systems: See Below Constitutional: Reports: Chills HEENT: Reports: No Symptoms Respiratory: Reports: No Symptoms Cardiovascular: Reports: No Symptoms GI/Abdominal: Reports: No Symptoms : Reports: Flank Pain (right) Neurological: Reports: No Symptoms ED EXAM, GI/ABD - Physical Exam Exam: See Below Exam Limited By: No Limitations General Appearance: Alert, WD/WN, No Apparent Distress Nose: Normal Inspection, Normal Mucosa, No Blood Head: Atraumatic, Normocephalic Neck: Normal Inspection, Supple, Non-Tender Respiratory/Chest: No Respiratory Distress, Lungs Clear, Normal Breath Sounds, No Accessory Muscle Use Cardiovascular: Regular Rate, Rhythm, No Murmur GI/Abdominal Exam: Normal Bowel Sounds, Soft, Non-Tender, No Organomegaly, No Distention, No Mass, Other (right CVA tenderness) Back Exam: CVA Tenderness (R) Extremities: Normal Inspection, No Pedal Edema Neurological: Alert, Oriented, Normal Cognition Psychiatric: Normal Affect, Normal Mood Skin Exam: Warm, Dry, Intact Course - Vital Signs Last Recorded V/S: Last Vital Signs Temp 98 F 07/29/19 18:15 Pulse 74 07/29/19 18:15 Resp 16 07/29/19 18:15 BP 126/82 07/29/19 18:15 Pulse Ox 100 07/29/19 18:15 - Orders/Labs/Meds Orders: Active Orders 24 hr Category Date Time Status Abdomen Pelvis wo Cont [CT] Urgent Exams 07/29/19 18:40 Taken CULTURE URINE [RM] Stat Lab 07/29/19 18:13 Received Labs: Laboratory Tests 07/29/19 07/29/19 07/29/19 Range/Units 18:13 18:51 18:51 WBC 8.8 (5.0-10.0) 10^3/uL RBC 4.85 (4.2-5.4) 10^6/uL Hgb 14.1 D (12.0-16.0) g/dL Hct 41.6 (37.0-47.0) % MCV 85.8 (80-100) fL MCH 29.1 (27.0-34.0) pg MCHC 33.9 (33.0-35.0) g/dL Plt Count 313 D (150-450) 10^3/uL Neut % (Auto) 70.3 (42.2-75.2) % Lymph % (Auto) 22.5 (20.5-50.1) % [place] % (Auto) 5.8 (2-8) % Eos % (Auto) 0.7 L (1.0-3.0) % Baso % (Auto) 0.7 (0.0-1.0) % Sodium 137 (135-145) mmol/L Potassium 3.2 L (3.6-5.0) mmol/L Chloride 100 L (101-111) mmol/L Carbon Dioxide 27.0 (21.0-31.0) mmol/L Anion Gap 13.2 BUN 9 (7-18) mg/dL Creatinine 0.8 (0.6-1.3) mg/dL Est Cr Clr Drug Dosing 57.14 mL/min Estimated GFR (MDRD) > 60 Glucose 102 (74-105) mg/dL Calcium 9.0 (8.4-10.2) mg/dl Urine Color Yellow (YELLOW) Urine Appearance Slightly cloudy (CLEAR) Urine pH 5.5 (5.0-9.0) Ur Specific [place] 1.025 (1.005-1.030) Urine Protein Negative (NEGATIVE) Urine Glucose (UA) Negative (NEGATIVE) Urine Ketones Negative (NEGATIVE) Urine Occult Blood Trace-intact H (NEGATIVE) Urine Nitrite Negative (NEGATIVE) Urine Bilirubin Negative (NEGATIVE) Urine Urobilinogen 0.2 (0.2-1.0) mg/dL Ur Leukocyte Esterase Trace H (NEGATIVE) Urine RBC 10-20 H /HPF Urine WBC 5-10 H (0-5/HPF) /HPF Ur Epithelial Cells Few (NOT SEEN) /HPF Amorphous Sediment Few (NOT SEEN) /HPF Urine Bacteria Few (0-FEW/HPF) /HPF Urine Mucus Few H (NOT SEEN) /LPF Meds: Medications Discontinued Medications Generic Name Dose Route Start Last Admin Trade Name Susu PRN Reason Stop Dose Admin Hydrocodone Bitart/Acetaminophen 1 tab 07/29/19 20:45 07/29/19 20:51 [place] 325-5 Mg PO 07/29/19 20:46 1 tab ONETIME ONE Administration Departure - Departure Time of Disposition: 21:07 Disposition: Home, Self-Care 01 Condition: Good Clinical Impression: Renal cyst - Discharge Information *PRESCRIPTION DRUG MONITORING PROGRAM REVIEWED*: Not Applicable *COPY OF PRESCRIPTION DRUG MONITORING REPORT IN PATIENT GARRY: Not Applicable Forms: ED Department Discharge Care Plan Goals: Discussed her CT results with [facility] Nephrology and IR teams. IR agrees to aspirate renal cyst in AM of 07/30/2019. She should present to the [facility] lobby at 8:45AM. She should remain NPO tonight but can take her morning meds and pain medications with sips of water. She will be provided with prescription for [place] 5-325 #2 can take 1 by mouth every 6 hours as needed. She can take potassium twice daily and should also have her potassium rechecked in the clinic setting in 5-7 days. Her primary care provider can help facilitate her establishing with nephrology outpatient. Sepsis Event Note - Evaluation Sepsis Screening Result: No Definite Risk - Focused Exam Vital Signs: Vital Signs Temp Pulse Resp BP Pulse Ox 07/29/19 18:15 98 F 74 16 126/82 100 Date Exam was Performed: 07/29/19 Time Exam was Performed: 21:07 - My Orders Last 24 Hours: My Active Orders 07/29/19 18:40 Abdomen Pelvis wo Cont [CT] Urgent - Assessment/Plan Last 24 Hours: My Active Orders 07/29/19 18:40 Abdomen Pelvis wo Cont [CT] Urgent
[2019-07-29 19:15] LABS: ANION GAP 13.2; CHLORIDE,CL 100 mmol/L (101-111); SODIUM,NA 137 mmol/L (135-145)
[2019-07-29] MEDS ORDERED: Acetaminophen/HYDROcodone 325-5 MG Tab ONE (21:33)
== END 2019-07-29 21:37 | disposition home or self-care (01) ==
LOC: DL.ED 18:08
DX: N28.1 Cyst of kidney, acquired (principal); I10 Essential (primary) hypertension; Z79.899 Other long term (current) drug therapy; Z88.1 Allergy status to other antibiotic agents; Z87.891 Personal history of nicotine dependence; Z88.8 Allergy status to other drugs, medicaments and biological substances; Z88.6 Allergy status to analgesic agent; Z88.5 Allergy status to narcotic agent
CPT/HCPCS: 36415; 74176; 80048; 81001; 85025; 87086; 99284; A9270

== ENCOUNTER 2019-11-29 21:35 | Emergency (ER) | payer BC, OTHER ==
[2019-11-29] MEDS ORDERED: Acetaminophen/HYDROcodone 325-10 MG Tab PO ONE ×2 (21:36→22:34)
--- NOTE | 2019-11-29 22:45 | EDM.PDOC ---
ED HPI GENERAL MEDICAL PROBLEM - General Chief Complaint: Back Pain or Injury Stated Complaint: BACK PAIN Time Seen by Provider: 11/29/19 21:45 Source of Information: Reports: Patient History Limitations: Reports: No Limitations - History of Present Illness INITIAL COMMENTS - FREE TEXT/NARRATIVE: Unable to tolerate back pain, has been using tylenol at home and not helping awaiting referral for neurosurgery consult., Told needs rods palced iin low back. No numbness tingling or weakness, pain spasmodic at times but continual. No injury. No loss of bowel or bladder control. Uses cane recently Left Back Pain Score (Numeric/FACES): 10 - Related Data Allergies Allergy/AdvReac Type Severity Reaction Status Date / Time aspirin Allergy Nausea and Verified 11/29/19 21:47 Vomiting codeine Allergy Rash Verified 11/29/19 21:47 diphenhydramine Allergy Rash Verified 11/29/19 21:47 doxycycline Allergy Rash Verified 11/29/19 21:47 ketorolac tromethamine Allergy Anxiety Verified 11/29/19 21:47 [From Toradol] levofloxacin [From Levaquin] Allergy Rash Verified 11/29/19 21:47 metoclopramide HCl Allergy Anxiety Verified 11/29/19 21:47 [From Reglan] naproxen Allergy Rash Verified 11/29/19 21:47 sumatriptan [From Imitrex] Allergy Other Verified 11/29/19 21:47 sumatriptan succinate Allergy Other Verified 11/29/19 21:47 [From Imitrex] Home Meds: Home Meds Ascorbic Acid [Vitamin C] 1 tab PO DAILY 02/27/14 [History] Lisinopril 1 tab PO DAILY 02/27/14 [History] hydroCHLOROthiazide [Hydrochlorothiazide] 25 mg PO DAILY 02/27/14 [History] Potassium Chloride [Klor-Con 10] 10 meq PO DAILY 09/17/16 [History] Promethazine HCl 1 supp RC ASDIRECTED PRN 03/31/19 [History] Albuterol Sulfate [Albuterol Sulfate Hfa] 2 puff INH Q4H PRN 07/29/19 [History] Cimetidine [Tagamet] 400 mg PO DAILY 11/29/19 [History] Past Medical History HEENT History: Reports: Impaired Vision Cardiovascular History: Reports: Hypertension Respiratory History: Reports: None Gastrointestinal History: Reports: Bowel Obstruction, GERD Genitourinary History: Reports: Other (See Below) Other Genitourinary History: left kidney removed. 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 (See Below) Other WARP DRESSER History: complete hysterectomy Musculoskeletal History: Reports: Back Pain, Chronic Neurological History: Reports: Migraines Psychiatric History: Reports: None Endocrine/Metabolic History: Reports: None Hematologic History: Reports: None Immunologic History: Reports: None Oncologic (Cancer) History: Reports: None Dermatologic History: Reports: None - Infectious Disease History Infectious Disease History: Reports: None - Past Surgical History Head Surgeries/Procedures: Reports: None GI Surgical History: Reports: Appendectomy, Cholecystectomy, Hernia, Inguinal, Hernia Repair/Other Female Surgical History: Reports: Nephrectomy Musculoskeletal Surgical History: Reports: Arthroscopic Knee, Shoulder Surgery, Other (See Below) Other Musculoskeletal Surgeries/Procedures:: ankle left, torn meniscus bilateral , back surgery 2018. Neck surgery in May 28, 2018 Social & Family History - Family History Family Medical History: Noncontributory - Tobacco Use Smoking Status *Q: Never Smoker Second Hand Smoke Exposure: No - Caffeine Use Caffeine Use: Reports: Coffee, Soda, Tea Caffeine Use Comment: 1 cup coffee in the morning - Recreational Drug Use Recreational Drug Use: No - Living Situation & Occupation Living situation: Reports: with Family ED ROS GENERAL - Review of Systems Review Of Systems: Comprehensive ROS is negative, except as noted in HPI. ED EXAM,LOWER BACK PAIN/INJURY - Physical Exam Exam: See Below Exam Limited By: No Limitations General Appearance: Alert, Moderate Distress Eye Exam: Bilateral Eye: EOMI Ears: Normal External Exam Nose: Normal Inspection Throat/Mouth: Normal Inspection Head: Atraumatic, Normocephalic Neck: Normal Inspection, Full Range of Motion Respiratory/Chest: No Respiratory Distress, Lungs Clear, Normal Breath Sounds Cardiovascular: Regular Rate, Rhythm GI/Abdominal: Normal Bowel Sounds, Soft Back Exam: Paraspinal Tenderness (bilateral lumbar) Extremities: Normal Inspection Neurological: Alert, Normal Reflexes, No Motor/Sensory Deficits, Oriented x 3, Straight Leg Raise (L), Straight Leg Raise (R). No: Abnormal Sensation, Tremor , Saddle Anesthesia, Difficulty Walking DTR - Lower Extremities: 2+: Knee (R), Knee (L) Psychiatric: Tearful Skin Exam: Warm, Dry, Intact, Normal Color Course - Vital Signs Last Recorded V/S: Last Vital Signs Temp 97.8 F 11/29/19 21:39 Pulse 70 11/29/19 22:54 Resp 18 11/29/19 22:54 BP 134/85 11/29/19 22:54 Pulse Ox 96 11/29/19 22:54 - Orders/Labs/Meds Meds: Medications Discontinued Medications Generic Name Dose Route Start Last Admin Trade Name Susu PRN Reason Stop Dose Admin Hydrocodone Bitart/Acetaminophen 1 tab 11/29/19 22:34 11/29/19 22:44 [place] 325-10 Mg PO 11/29/19 22:35 1 tab ONETIME ONE Administration Hydrocodone Bitart/Acetaminophen Confirm 11/29/19 22:47 11/29/19 22:51 [place] 325-10 Mg Administered 11/29/19 22:48 Not Given Dose 1 tab .ROUTE .STK-MED ONE Departure - Departure Time of Disposition: 22:38 Disposition: Home, Self-Care 01 Condition: Good Clinical Impression: Back pain of lumbar region with sciatica - Discharge Information *PRESCRIPTION DRUG MONITORING PROGRAM REVIEWED*: No *COPY OF PRESCRIPTION DRUG MONITORING REPORT IN PATIENT GARRY: No Instructions: Chronic Back Pain Referrals: PCP,None [Primary Care Provider] - Forms: ED Department Discharge Additional Instructions: hydrocodone 5/325 one every 6 hours as needed for severe pain #6 Follow up with primary care on Saturday alternate ice and heat to low back, Sepsis Event Note (ED) - Evaluation Sepsis Screening Result: No Definite Risk - Focused Exam Vital Signs: Vital Signs Temp Pulse Resp BP Pulse Ox 11/29/19 22:54 70 18 134/85 96 11/29/19 21:39 97.8 F 71 18 144/81 H 99
[2019-11-29] MEDS ORDERED: Acetaminophen/HYDROcodone 325-10 MG Tab ONE (22:47)
[2019-11-29 22:55] VITALS: BP 134/85; PULSE 70
== END 2019-11-29 22:53 | disposition home or self-care (01) ==
LOC: DL.ED 21:35
DX: M54.41 Lumbago with sciatica, right side (principal); M54.42 Lumbago with sciatica, left side; I10 Essential (primary) hypertension; Z88.8 Allergy status to other drugs, medicaments and biological substances; Z88.5 Allergy status to narcotic agent; Z88.1 Allergy status to other antibiotic agents; Z79.899 Other long term (current) drug therapy
CPT/HCPCS: 99283; A9270

== ENCOUNTER 2020-02-22 14:39 | Emergency (ER) | payer BC, OTHER ==
[2020-02-22] MEDS ORDERED: Cephalexin 500 MG Cap PO ONE ×2 (14:40→15:19)
[2020-02-22] MEDS ORDERED: Acetaminophen/HYDROcodone 325-10 MG Tab PO ONE ×2 (14:40→15:20)
[2020-02-22 14:53] VITALS: BP 140/94; PULSE 68
[2020-02-22] MEDS ORDERED: Promethazine 25 MG/ML SDV IM ONE (14:58)
[2020-02-22] MEDS ORDERED: Ondansetron 4 MG Tab.DIS PO ONE (15:20)
--- NOTE | 2020-02-22 15:27 | EDM.PDOC ---
Scribed by Veronica Baker 02/22/20 1150 for Alex Dowling MD ED HPI GENERAL MEDICAL PROBLEM - General Chief Complaint: Genitourinary Problem Stated Complaint: KIDNEY PAIN AFTER PROCEDURE Time Seen by Provider: 02/22/20 14:53 Source of Information: Reports: Patient, RN, RN Notes Reviewed History Limitations: Reports: No Limitations - History of Present Illness INITIAL COMMENTS - FREE TEXT/NARRATIVE: Patient presents to ED by POV with complaint of right flank pain. This started after she has 3 injections in back on . Patient states since then kidney has not been acting right. She has a history of remote left nephrectomy. She has had large cysts on right kidney, which have required surgical drainage. Onset: Gradual Duration: Getting Worse Location: Reports: Other (right flank) Quality: Reports: Ache Severity: Moderate Improves with: Reports: None Worsens with: Reports: None Associated Symptoms: Reports: No Other Symptoms Right Flank Pain Score (Numeric/FACES): 10 - Related Data Allergies Allergy/AdvReac Type Severity Reaction Status Date / Time aspirin Allergy Nausea and Verified 02/22/20 14:48 Vomiting codeine Allergy Rash Verified 02/22/20 14:48 diphenhydramine Allergy Rash Verified 02/22/20 14:48 doxycycline Allergy Rash Verified 02/22/20 14:48 ketorolac tromethamine Allergy Anxiety Verified 02/22/20 14:48 [From Toradol] levofloxacin [From Levaquin] Allergy Rash Verified 02/22/20 14:48 metoclopramide HCl Allergy Anxiety Verified 02/22/20 14:48 [From Reglan] naproxen Allergy Rash Verified 02/22/20 14:48 sumatriptan [From Imitrex] Allergy Other Verified 02/22/20 14:48 sumatriptan succinate Allergy Other Verified 02/22/20 14:48 [From Imitrex] Home Meds: Home Meds Ascorbic Acid [Vitamin C] 1 tab PO DAILY 02/27/14 [History] Lisinopril 10 mg PO DAILY 02/27/14 [History] hydroCHLOROthiazide [Hydrochlorothiazide] 25 mg PO DAILY 02/27/14 [History] Potassium Chloride [Klor-Con 10] 10 meq PO DAILY 09/17/16 [History] Promethazine HCl 1 supp RC ASDIRECTED PRN 03/31/19 [History] Albuterol Sulfate [Albuterol Sulfate Hfa] 2 puff INH Q4H PRN 07/29/19 [History] Cimetidine [Tagamet] 400 mg PO DAILY 11/29/19 [History] Past Medical History HEENT History: Reports: Impaired Vision Cardiovascular History: Reports: Hypertension Respiratory History: Reports: None Gastrointestinal History: Reports: Bowel Obstruction, GERD Genitourinary History: Reports: Other (See Below) Other Genitourinary History: left kidney removed. cyst right kidney drained in [address] RO[address] BOSS History: Reports: Other (See Below) Other ROAD BOSS History: complete hysterectomy Musculoskeletal History: Reports: Back Pain, Chronic Neurological History: Reports: Migraines Psychiatric History: Reports: None Endocrine/Metabolic History: Reports: None Hematologic History: Reports: None Immunologic History: Reports: None Oncologic (Cancer) History: Reports: None Dermatologic History: Reports: None - Infectious Disease History Infectious Disease History: Reports: None - Past Surgical History Head Surgeries/Procedures: Reports: None GI Surgical History: Reports: Appendectomy, Cholecystectomy, Hernia, Inguinal, Hernia Repair/Other Female Surgical History: Reports: Nephrectomy Musculoskeletal Surgical History: Reports: Arthroscopic Knee, Shoulder Surgery, Other (See Below) Other Musculoskeletal Surgeries/Procedures:: ankle left, torn meniscus bilateral, back surgery 2018. Neck surgery in May 28, 2018 Social & Family History - Family History Family Medical History: Noncontributory - Caffeine Use Caffeine Use: Reports: Coffee, Soda, Tea Caffeine Use Comment: 1 cup coffee in the morning - Living Situation & Occupation Living situation: Reports: with Family ED ROS GENERAL - Review of Systems Review Of Systems: Comprehensive ROS is negative, except as noted in HPI. ED EXAM, RENAL/ - Physical Exam Exam: See Below Exam Limited By: No Limitations General Appearance: Alert, WD/WN, No Apparent Distress Eye Exam: Bilateral Eye: Normal Inspection Throat/Mouth: Normal Voice, No Airway Compromise Respiratory/Chest: No Respiratory Distress, Lungs Clear Cardiovascular: Regular Rate, Rhythm GI/Abdominal: Normal Bowel Sounds, Soft, Non-Tender Back Exam: CVA Tenderness (R), Decreased Range of Motion, Paraspinal Tenderness. No: CVA Tenderness (L), Vertebral Tenderness Extremities: Normal Inspection, Normal Range of Motion, Non-Tender, Normal Capillary Refill, No Pedal Edema Neurological: Alert, Oriented, No Motor/Sensory Deficits Psychiatric: Normal Affect, Normal Mood Skin Exam: Warm, Dry, Intact, Normal Color, No Rash Course - Vital Signs Last Recorded V/S: Last Vital Signs Temp 97.4 F 02/22/20 14:52 Pulse 68 02/22/20 14:52 Resp 20 02/22/20 14:52 BP 140/94 H 02/22/20 14:52 Pulse Ox 100 02/22/20 14:52 - Orders/Labs/Meds Orders: Active Orders 24 hr Category Date Time Status CULTURE URINE [RM] Stat Lab 02/22/20 14:45 Received Labs: Laboratory Tests 02/22/20 Range/Units 14:45 Urine Color Yellow (YELLOW) Urine Appearance Clear (CLEAR) Urine pH 7.0 (5.0-9.0) Ur Specific [place] 1.020 (1.005-1.030) Urine Protein Negative (NEGATIVE) Urine Glucose (UA) Negative (NEGATIVE) Urine Ketones Negative (NEGATIVE) Urine Occult Blood Trace-intact H (NEGATIVE) Urine Nitrite Negative (NEGATIVE) Urine Bilirubin Negative (NEGATIVE) Urine Urobilinogen 0.2 (0.2-1.0) mg/dL Ur Leukocyte Esterase Small H (NEGATIVE) Urine RBC 0-5 /HPF Urine WBC 5-10 H (0-5/HPF) /HPF Ur Epithelial Cells Many H (NOT SEEN) /HPF Amorphous Sediment Few (NOT SEEN) /HPF Urine Bacteria Few (0-FEW/HPF) /HPF Meds: Medications Discontinued Medications Generic Name Dose Route Start Last Admin Trade Name Freq PRN Reason Stop Dose Admin Hydrocodone Bitart/Acetaminophen 1 tab 02/22/20 15:20 [place] 325-10 Mg PO 02/22/20 15:21 ONETIME ONE Cephalexin 500 mg 02/22/20 15:19 Keflex PO 02/22/20 15:20 ONETIME ONE Ondansetron HCl 4 mg 02/22/20 15:20 Zofran Odt PO 02/22/20 15:21 ONETIME ONE Promethazine HCl 25 mg 02/22/20 14:58 02/22/20 15:02 Phenergan IM 02/22/20 14:59 25 mg ONETIME ONE Administration Departure - Departure Time of Disposition: 15:24 Disposition: Home, Self-Care 01 Condition: Good Clinical Impression: Right flank pain, UTI, Urinary tract infectious disease - Discharge Information *PRESCRIPTION DRUG MONITORING PROGRAM REVIEWED*: No *COPY OF PRESCRIPTION DRUG MONITORING REPORT IN PATIENT GARRY: No Instructions: Flank Pain, Adult, Pyelonephritis, Adult, [id number] Forms: ED Department Discharge Additional Instructions: Rx: Cephalexin 500mg Rx: Hydrocodone *Do not drive while under the influence of this medication. Follow up in clinic this week for recheck of urine. Ask your doctor to consider evaluating for recurrence of a cyst on your right kidney if your pain is not resolving with the antibiotic treatment in the next 2 to 3 days. Sepsis Event Note (ED) - Focused Exam Vital Signs: Vital Signs Temp Pulse Resp BP Pulse Ox 02/22/20 14:52 97.4 F 68 20 140/94 H 100 - My Orders Last 24 Hours: My Active Orders 02/22/20 14:45 CULTURE URINE [RM] Stat - Assessment/Plan Last 24 Hours: My Active Orders 02/22/20 14:45 CULTURE URINE [RM] Stat I have read and agree with the documentation that has been completed regarding this visit. By signing this record, I attest that the documentation was completed in my physical presence and is an accurate record of the encounter.
[2020-02-22] MEDS ORDERED: Acetaminophen/HYDROcodone 325-10 MG Tab ONE (15:28)
[2020-02-22] MEDS ORDERED: Cephalexin 500 MG Cap ONE (15:29)
[2020-02-22] MEDS ORDERED: metroNIDAZOLE 250 MG Tab ONE (15:36)
[2020-02-22] MEDS ORDERED: metroNIDAZOLE 250 MG Tab PO ONE (15:42)
== END 2020-02-22 15:43 | disposition home or self-care (01) ==
LOC: DL.ED 14:39
DX: N39.0 Urinary tract infection, site not specified (principal); N76.0 Acute vaginitis; I10 Essential (primary) hypertension; K21.9 Gastro-esophageal reflux disease without esophagitis; Z88.6 Allergy status to analgesic agent; Z88.5 Allergy status to narcotic agent; Z88.1 Allergy status to other antibiotic agents; Z88.8 Allergy status to other drugs, medicaments and biological substances; Z79.899 Other long term (current) drug therapy; Z90.710 Acquired absence of both cervix and uterus; Z90.49 Acquired absence of other specified parts of digestive tract
CPT/HCPCS: 81001; 87086; 87088; 87186; 96372; 99284; A9270-GY; J2550

== ENCOUNTER 2020-07-11 21:24 | Emergency (ER) | payer BC, OTHER ==
[2020-07-11 21:37] VITALS: BP 125/77; PULSE 79
[2020-07-11] MEDS ORDERED: Sodium Chloride 0.9% 1,000 ML IV ONE (21:54)
[2020-07-11] MEDS ORDERED: Ondansetron 4 MG/2 ML SDV IV ONE (21:54)
--- NOTE | 2020-07-11 21:54 | EDM.PDOC ---
ED HPI GENERAL MEDICAL PROBLEM - General Chief Complaint: Headache Stated Complaint: MIGRAINE Time Seen by Provider: 07/11/20 21:50 Source of Information: Reports: Patient, RN, RN Notes Reviewed History Limitations: Reports: No Limitations - History of Present Illness INITIAL COMMENTS - FREE TEXT/NARRATIVE: Patient is a 60-year-old female who presents to the ER with complaint of migraine headache. States the headache has been present since Saturday and nothing has helped. States she did go to the clinic this morning and was given a steroid shot as well as either Phenergan or morphine, she is unsure which. Patient states she was also diagnosed with gastroenteritis at the clinic, as she has had vomiting and diarrhea throughout the weekend. Patient admits to nausea at this time. States she has some blurred vision which is normal when she has a migraine headache. Does admit to sensitivity to light and sound. Patient states this is very similar to her normal migraine headaches. Rates pain 9/10, and states she is beginning to have some anxiety due to the headache. Onset: Gradual Onset Date: 07/08/20 Duration: Constant Location: Reports: Head Quality: Reports: Ache Severity: Severe Improves with: Reports: None Worsens with: Reports: None Associated Symptoms: Reports: Headaches, Loss of Appetite, Nausea/Vomiting Treatments N[employer] MEMBER: Reports: Acetaminophen Headache Pain Score (Numeric/FACES): 10 - Related Data Allergies Allergy/AdvReac Type Severity Reaction Status Date / Time aspirin Allergy Nausea and Verified 07/11/20 21:30 Vomiting codeine Allergy Rash Verified 07/11/20 21:30 diphenhydramine Allergy Rash Verified 07/11/20 21:30 doxycycline Allergy Rash Verified 07/11/20 21:30 ketorolac tromethamine Allergy Anxiety Verified 07/11/20 21:30 [From Toradol] levofloxacin [From Levaquin] Allergy Rash Verified 07/11/20 21:30 metoclopramide HCl Allergy Anxiety Verified 07/11/20 21:30 [From Reglan] naproxen Allergy Rash Verified 07/11/20 21:30 sumatriptan [From Imitrex] Allergy Other Verified 07/11/20 21:30 sumatriptan succinate Allergy Other Verified 07/11/20 21:30 [From Imitrex] Home Meds: Home Meds Ascorbic Acid [Vitamin C] 1 tab PO DAILY 09/13/14 [History] Lisinopril 10 mg PO DAILY 02/27/14 [History] hydroCHLOROthiazide [Hydrochlorothiazide] 25 mg PO DAILY 02/27/14 [History] Potassium Chloride [Klor-Con 10] 10 meq PO DAILY 09/17/16 [History] Promethazine HCl 1 supp RC ASDIRECTED PRN 03/31/19 [History] Albuterol Sulfate [Albuterol Sulfate Hfa] 2 puff INH Q4H PRN 07/29/19 [History] Cimetidine [Tagamet] 400 mg PO DAILY 11/29/19 [History] Past Medical History HEENT History: Reports: Impaired Vision Cardiovascular History: Reports: Hypertension Respiratory History: Reports: None Gastrointestinal History: Reports: Bowel Obstruction, GERD Genitourinary History: Reports: Other (See Below) Other Genitourinary History: left kidney removed. 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: Reports: Other (See Below) Other MARBLEIZER History: complete hysterectomy Musculoskeletal History: Reports: Back Pain, Chronic Neurological History: Reports: Migraines Psychiatric History: Reports: None Endocrine/Metabolic History: Reports: None Hematologic History: Reports: None Immunologic History: Reports: None Oncologic (Cancer) History: Reports: None Dermatologic History: Reports: None - Infectious Disease History Infectious Disease History: Reports: Chicken Pox - Past Surgical History Head Surgeries/Procedures: Reports: None GI Surgical History: Reports: Appendectomy, Cholecystectomy, Hernia, Inguinal, Hernia Repair/Other Female Surgical History: Reports: Hysterectomy, Nephrectomy Musculoskeletal Surgical History: Reports: Arthroscopic Knee, Shoulder Surgery, Other (See Below) Other Musculoskeletal Surgeries/Procedures:: ankle left, torn meniscus bilateral, back surgery 2018. Neck surgery in May 28, 2018 Social & Family History - Family History Family Medical History: No Pertinent Family History - Tobacco Use Tobacco Use Status *Q: Former Tobacco User Used Tobacco, but Quit: Yes Month/Year Tobacco Last Used: 5 years ago Second Hand Smoke Exposure: No - Caffeine Use Caffeine Use: Reports: None Caffeine Use Comment: 1 cup coffee in the morning - Recreational Drug Use Recreational Drug Use: No - Living Situation & Occupation Living situation: Reports: with Family ED ROS GENERAL - Review of Systems Review Of Systems: Comprehensive ROS is negative, except as noted in HPI. - Physical Exam Exam: See Below Exam Limited By: No Limitations General Appearance: Alert, WD/WN, Anxious, Moderate Distress Eye Exam: Bilateral Eye: EOMI, Normal Inspection Ears: Normal External Exam, Hearing Grossly Normal Nose: Normal Inspection Throat/Mouth: Normal Inspection, Normal Voice, No Airway Compromise Head Exam: Atraumatic, Normocephalic Neck: Normal Inspection, Supple, Non-Tender, Full Range of Motion Respiratory/Chest: No Respiratory Distress, Lungs Clear, Normal Breath Sounds, No Accessory Muscle Use, Chest Non-Tender Cardiovascular: Normal Peripheral Pulses, Regular Rate, Rhythm, No Edema, No Gallop, No JVD, No Murmur, No Rub GI/Abdominal: Normal Bowel Sounds, Soft, Non-Tender, No Organomegaly, No Distention, No Abnormal Bruit, No Mass, Pelvis Stable (Female) Exam: Deferred Rectal (Female) Exam: Deferred Neuro Exam (Abbreviated): Alert, Oriented, CN II-XII Intact, Normal Cognition, Normal Gait, Normal Reflexes, No Motor/Sensory Deficits Back Exam: Normal Inspection, Full Range of Motion, NT Extremities: Normal Inspection, Normal Range of Motion, Non-Tender, No Pedal Edema, Normal Capillary Refill Psychiatric: Normal Affect, Normal Mood, Anxious Skin Exam: Warm, Dry, Intact, Normal Color, No Rash Course - Vital Signs Last Recorded V/S: Last Vital Signs Temp 96.7 F L 07/11/20 21:36 Pulse 79 07/11/20 21:36 Resp 18 07/11/20 21:36 BP 125/77 07/11/20 21:36 Pulse Ox 98 07/11/20 21:36 - Orders/Labs/Meds Meds: Medications Discontinued Medications Generic Name Dose Route Start Last Admin Trade Name Susu PRN Reason Stop Dose Admin Hydromorphone HCl 1 mg 07/11/20 21:55 07/11/20 22:10 Dilaudid IVPUSH 07/11/20 21:56 1 mg ONETIME ONE Administration Sodium Chloride 1,000 mls @ 999 mls/hr 07/11/20 21:54 07/11/20 22:07 Normal Saline IV 07/11/20 22:54 999 mls/hr .BOLUS ONE Administration Ondansetron HCl 4 mg 07/11/20 21:54 07/11/20 22:09 Zofran IV 07/11/20 21:55 4 mg ONETIME ONE Administration Departure - Departure Time of Disposition: 23:05 Disposition: Home, Self-Care 01 Condition: Good Clinical Impression: Migraine Qualifiers: Migraine type: hemiplegic Status migrainosus presence: without status migrainosus Intractability: not intractable Qualified Code(s): G43.409 - Hemiplegic migraine, not intractable, without status migrainosus - Discharge Information *PRESCRIPTION DRUG MONITORING PROGRAM REVIEWED*: No *COPY OF PRESCRIPTION DRUG MONITORING REPORT IN PATIENT AGRRY: No Instructions: Migraine Headache, [id number], Dehydration, Adult, [id number] Forms: ED Department Discharge Additional Instructions: Drink plenty of water Follow up with your primary care facility if no improvement Sepsis Event Note (ED) - Evaluation Sepsis Screening Result: No Definite Risk - Focused Exam Vital Signs: Vital Signs Temp Pulse Resp BP Pulse Ox 07/11/20 21:36 96.7 F L 79 18 125/77 98
[2020-07-11] MEDS ORDERED: HYDROmorphone 1 MG/ML Syringe IVPUSH ONE (21:55)
== END 2020-07-11 23:05 | disposition home or self-care (01) ==
LOC: DL.ED 21:24
DX: G43.409 Hemiplegic migraine, not intractable, without status migrainosus (principal); I10 Essential (primary) hypertension; Z88.6 Allergy status to analgesic agent; Z88.5 Allergy status to narcotic agent; Z88.8 Allergy status to other drugs, medicaments and biological substances; Z88.1 Allergy status to other antibiotic agents; Z87.891 Personal history of nicotine dependence
CPT/HCPCS: 96374; 96375; 99283; J1170; J2405; J7030

== ENCOUNTER 2021-06-25 19:12 | Emergency (ER) | payer BC, OTHER ==
[2021-06-25] MEDS: Sodium Chloride 0.9% 1,000 ML IV ONE (19:54)
[2021-06-25] MEDS: Ondansetron 4 MG/2 ML SDV IVPUSH ONE (19:54)
[2021-06-25] MEDS: HYDROmorphone 1 MG/ML Syringe IVPUSH ONE (19:56)
[2021-06-25] MEDS: HYDROmorphone 0.5 MG/0.5 ML Syringe IVPUSH ONE (21:53)
--- NOTE | 2021-06-25 21:56 | EDM.PDOC ---
ED HPI GENERAL MEDICAL PROBLEM - General Chief Complaint: Headache Stated Complaint: MIGRAINE Time Seen by Provider: 06/25/21 21:40 Source of Information: Reports: Patient History Limitations: Reports: No Limitations - History of Present Illness INITIAL COMMENTS - FREE TEXT/NARRATIVE: This 61 yo female patient reports to the ED with a migraine headache. The patient reports she has been taking OTC medications with no symptom relief. The patient reports she has been seen by Neurology, but continues to have headaches. Onset: Today Duration: Constant Location: Reports: Head Quality: Reports: Ache, Sharp Severity: Severe Improves with: Reports: None Worsens with: Reports: None Context: Reports: Other Associated Symptoms: Reports: Headaches Treatments [facility]: Reports: Acetaminophen Left Headache Pain Score (Numeric/FACES): 5 - Related Data Allergies Allergy/AdvReac Type Severity Reaction Status Date / Time aspirin Allergy Nausea and Verified 07/11/20 21:30 Vomiting codeine Allergy Rash Verified 07/11/20 21:30 diphenhydramine Allergy Rash Verified 07/11/20 21:30 doxycycline Allergy Rash Verified 07/11/20 21:30 levofloxacin [From Levaquin] Allergy Rash Verified 07/11/20 21:30 metoclopramide HCl Allergy Anxiety Verified 07/11/20 21:30 [From Reglan] sumatriptan [From Imitrex] Allergy Other Verified 07/11/20 21:30 sumatriptan succinate Allergy Other Verified 07/11/20 21:30 [From Imitrex] ketorolac tromethamine AdvReac Other Verified 06/25/21 19:37 [From Toradol] naproxen AdvReac Other Verified 06/25/21 19:37 Home Meds: Home Meds Ascorbic Acid [Vitamin C] 1 tab PO DAILY 02/27/14 [History] Lisinopril 10 mg PO DAILY 02/27/14 [History] hydroCHLOROthiazide [Hydrochlorothiazide] 25 mg PO DAILY 02/27/14 [History] Potassium Chloride [Klor-Con 10] 10 meq PO DAILY 09/17/16 [History] Promethazine HCl 1 supp RC ASDIRECTED PRN 03/31/19 [History] Albuterol Sulfate [Albuterol Sulfate Hfa] 2 puff INH Q4H PRN 07/29/19 [History] Cimetidine [Tagamet] 400 mg PO DAILY 11/29/19 [History] Past Medical History HEENT History: Reports: Impaired Vision Cardiovascular History: Reports: Hypertension Respiratory History: Reports: None Gastrointestinal History: Reports: Bowel Obstruction, GERD Genitourinary History: Reports: Other (See Below) Other Genitourinary History: left kidney removed. 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 History: complete hysterectomy Musculoskeletal History: Reports: Back Pain, Chronic Neurological History: Reports: Migraines Psychiatric History: Reports: None Endocrine/Metabolic History: Reports: None Hematologic History: Reports: None Immunologic History: Reports: None Oncologic (Cancer) History: Reports: None Dermatologic History: Reports: None - Infectious Disease History Infectious Disease History: Reports: Chicken Pox - Past Surgical History Head Surgeries/Procedures: Reports: None GI Surgical History: Reports: Appendectomy, Cholecystectomy, Hernia, Inguinal, Hernia Repair/Other Female Surgical History: Reports: Hysterectomy, Nephrectomy Musculoskeletal Surgical History: Reports: Arthroscopic Knee, Shoulder Surgery, Other (See Below) Other Musculoskeletal Surgeries/Procedures:: ankle left, torn meniscus bilateral, back surgery 2018. Neck surgery in May 28, 2018 Social & Family History - Family History Family Medical History: No Pertinent Family History - Tobacco Use Tobacco Use Status *Q: Never Tobacco User - Caffeine Use Caffeine Use: Reports: Soda Caffeine Use Comment: 1 cup coffee in the morning - Recreational Drug Use Recreational Drug Use: Yes Recreational Drug Type: Reports: Marijuana/Hashish - Living Situation & Occupation Living situation: Reports: with Family ED ROS GENERAL - Review of Systems Review Of Systems: Comprehensive ROS is negative, except as noted in HPI. - Physical Exam Exam: See Below Exam Limited By: No Limitations General Appearance: Alert, WD/WN, Moderate Distress Eye Exam: Bilateral Eye: EOMI, Normal Inspection, PERRL Ears: Normal External Exam, Normal Canal, Hearing Grossly Normal, Normal TMs Nose: Normal Inspection, Normal Mucosa, No Blood Throat/Mouth: Normal Inspection, Normal Lips, Normal Teeth, Normal Gums, Normal Oropharynx, Normal Voice, No Airway Compromise Head Exam: Atraumatic, Normocephalic Neck: Normal Inspection, Supple, Non-Tender, Full Range of Motion Respiratory/Chest: No Respiratory Distress, Lungs Clear, Normal Breath Sounds, No Accessory Muscle Use, Chest Non-Tender Cardiovascular: Normal Peripheral Pulses, Regular Rate, Rhythm, No Edema, No Gallop, No JVD, No Murmur, No Rub GI/Abdominal: Normal Bowel Sounds, Soft, Non-Tender, No Organomegaly, No Distention, No Abnormal Bruit, No Mass (Female) Exam: Deferred Rectal (Female) Exam: Deferred Neuro Exam (Abbreviated): Alert, Oriented, CN II-XII Intact, Normal Cognition, Normal Gait, Normal Reflexes, No Motor/Sensory Deficits Back Exam: Normal Inspection, Full Range of Motion, NT Extremities: Normal Inspection, Normal Range of Motion, Non-Tender, No Pedal Edema, Normal Capillary Refill Psychiatric: Normal Affect, Normal Mood Skin Exam: Warm, Dry, Intact, Normal Color, No Rash Course - Vital Signs Last Recorded V/S: Last Vital Signs Temp 98.4 F 06/25/21 20:59 Pulse 80 06/25/21 21:30 Resp 20 06/25/21 21:30 BP 102/51 L 06/25/21 21:30 Pulse Ox 97 06/25/21 21:30 - Orders/Labs/Meds Meds: Medications Discontinued Medications Generic Name Dose Route Start Last Admin Trade Name Susu PRN Reason Stop Dose Admin Hydromorphone HCl 1 mg 06/25/21 19:38 06/25/21 19:56 Hydromorphone 1 Mg/Ml Syringe IVPUSH 06/25/21 19:39 1 mg ONETIME ONE Administration Hydromorphone HCl 0.5 mg 06/25/21 21:51 Hydromorphone 0.5 Mg/0.5 Ml Syringe IVPUSH 06/25/21 21:52 ONETIME ONE Sodium Chloride 1,000 mls @ 999 mls/hr 06/25/21 19:36 06/25/21 19:54 Normal Saline IV 06/25/21 20:36 999 mls/hr .BOLUS ONE Administration Ondansetron HCl 4 mg 06/25/21 19:36 06/25/21 19:54 Ondansetron 4 Mg/2 Ml Sdv IVPUSH 06/25/21 19:37 4 mg ONETIME ONE Administration Departure - Departure Time of Disposition: 21:55 Disposition: Home, Self-Care 01 Condition: Fair Clinical Impression: Migraine - Discharge Information *PRESCRIPTION DRUG MONITORING PROGRAM REVIEWED*: Not Applicable *COPY OF PRESCRIPTION DRUG MONITORING REPORT IN PATIENT GARRY: Not Applicable Instructions: Migraine Headache, [id number] Forms: ED Department Discharge Care Plan Goals: The patient was advised of the examination and lab results during the visit. The patient was given IV fluids and IV Dilaudid while in the ED. The patient was encouraged to increase her oral fluid intake over the next 48 hours. The patient may take Tylenol as directed for temporary symptom relief. If the patient has any additional symptoms or concerns, the patient should either return to the emergency department or visit her primary care facility. Sepsis Event Note (ED) - Evaluation Sepsis Screening Result: No Definite Risk - Focused Exam Vital Signs: Vital Signs Temp Pulse Resp BP BP Pulse Ox 06/25/21 21:30 80 20 102/51 L 97 06/25/21 20:59 98.4 F 78 16 116/72 98 06/25/21 19:39 98.2 F 92 18 126/68 98
[2021-06-25 22:24] VITALS: BP 103/60; PULSE 84
== END 2021-06-25 22:21 | disposition home or self-care (01) ==
LOC: DL.ED 19:12
DX: G43.909 Migraine, unspecified, not intractable, without status migrainosus (principal); I10 Essential (primary) hypertension; Z88.8 Allergy status to other drugs, medicaments and biological substances; Z88.5 Allergy status to narcotic agent; Z88.1 Allergy status to other antibiotic agents; Z79.899 Other long term (current) drug therapy
CPT/HCPCS: 96374; 96375; 96376; 99283; J1170; J2405; J7030

== ENCOUNTER 2021-11-02 18:34 | Emergency (ER) | payer BC, OTHER ==
[2021-11-02] MEDS ORDERED: Promethazine 25 MG Tab PO ONE (18:35)
[2021-11-02 19:03] VITALS: BP 147/93; PULSE 86
[2021-11-02] MEDS ORDERED: Sodium Chloride 0.9% 1,000 ML IV ONE (19:51)
[2021-11-02] MEDS ORDERED: Promethazine 25 MG/ML SDV IM ONE (19:51)
[2021-11-02] MEDS ORDERED: HYDROmorphone 1 MG/ML Syringe IVPUSH ONE (19:51)
[2021-11-02 20:32] LABS: ANION GAP 13.2 mEq/L (7-13); CHLORIDE,CL 104 mmol/L (98-107); SODIUM,NA 144 mmol/L (136-145)
[2021-11-02] MEDS ORDERED: Promethazine 25 MG Tab ONE (20:57)
== END 2021-11-02 21:15 | disposition home or self-care (01) ==
LOC: DL.ED 18:34
DX: G43.409 Hemiplegic migraine, not intractable, without status migrainosus (principal); I10 Essential (primary) hypertension; Z90.710 Acquired absence of both cervix and uterus; Z86.16 Personal history of COVID-19; Z90.49 Acquired absence of other specified parts of digestive tract; Z79.899 Other long term (current) drug therapy; Z88.6 Allergy status to analgesic agent; Z88.5 Allergy status to narcotic agent; Z88.8 Allergy status to other drugs, medicaments and biological substances; Z88.1 Allergy status to other antibiotic agents
CPT/HCPCS: 36415; 80053; 85025; 96361; 96372; 96374; 99283; A9270; J1170; J2550; J7030

== ENCOUNTER 2021-11-22 15:39 | Emergency (ER) | payer BC, OTHER ==
[2021-11-22] MEDS ORDERED: Sodium Chloride 0.9% 10 ML Syringe FLUSH PRN (16:07)
[2021-11-22 16:17] VITALS: BP 146/77; PULSE 77
[2021-11-22] MEDS ORDERED: HYDROmorphone 0.5 MG/0.5 ML Syringe IVPUSH ONE (16:21)
[2021-11-22] MEDS ORDERED: Ondansetron 4 MG/2 ML SDV IVPUSH ONE (16:22)
[2021-11-22 17:21] LABS: ANION GAP 10.3 mEq/L (7-13); CHLORIDE,CL 100 mmol/L (98-107); SODIUM,NA 139 mmol/L (136-145)
[2021-11-22 17:30] LABS: ESTIMATED GFR > 60
[2021-11-22] MEDS ORDERED: cefTRIAXone 2 GM in Sodium Chloride 0.9% 100 ML IV ONE (17:36)
== END 2021-11-22 18:17 | disposition home or self-care (01) ==
LOC: DL.ED 15:39
DX: G89.18 Other acute postprocedural pain (principal); I10 Essential (primary) hypertension; Z90.710 Acquired absence of both cervix and uterus; Z86.16 Personal history of COVID-19; Z90.49 Acquired absence of other specified parts of digestive tract; Z79.899 Other long term (current) drug therapy; Z88.5 Allergy status to narcotic agent; Z88.6 Allergy status to analgesic agent; Z88.8 Allergy status to other drugs, medicaments and biological substances; Z88.1 Allergy status to other antibiotic agents
CPT/HCPCS: 36415; 73560; 80053; 83605; 85025; 86140; 87040; 96374; 96375; 99284; J1170; J2405; J3490

== ENCOUNTER 2021-12-10 19:49 | Emergency (ER) | payer OTHER ==
[2021-12-10 20:27] VITALS: BP 139/91; PULSE 83
[2021-12-10] MEDS ORDERED: HYDROmorphone 0.5 MG/0.5 ML Syringe IVPUSH ONE (20:29)
[2021-12-10] MEDS ORDERED: Sodium Chloride 0.9% 1,000 ML IV ONE (20:30)
[2021-12-10] MEDS ORDERED: Ondansetron 4 MG/2 ML SDV IVPUSH ONE (20:30)
== END 2021-12-10 22:11 | disposition home or self-care (01) ==
LOC: DL.ED 19:49
DX: G43.909 Migraine, unspecified, not intractable, without status migrainosus (principal); I10 Essential (primary) hypertension; K21.9 Gastro-esophageal reflux disease without esophagitis; Z88.5 Allergy status to narcotic agent; Z88.1 Allergy status to other antibiotic agents; Z88.8 Allergy status to other drugs, medicaments and biological substances; Z79.899 Other long term (current) drug therapy; Z86.16 Personal history of COVID-19
CPT/HCPCS: 96361; 96374; 96375; 99282; 99283-25; J1170; J2405; J7030

== ENCOUNTER 2022-06-28 02:21 | Emergency (ER) | payer OTHER ==
[~2022-06-28 02:21] MED LIST: Ondansetron 4 MG/2 ML SDV IVPUSH ONE; Sodium Chloride 0.9% 1,000 ML IV ONE
[2022-06-28] MEDS ORDERED: Ondansetron 4 MG/2 ML SDV IVPUSH ONE (03:00)
[2022-06-28 03:10] VITALS: BP 115/67; PULSE 66
[2022-06-28] MEDS ORDERED: Haloperidol Lactate 5 MG/ML SDV IM ONE (04:32)
== END 2022-06-28 05:34 | disposition home or self-care (01) ==
LOC: DL.ED 02:21
DX: T50.901A Poisoning by unspecified drugs, medicaments and biological substances, accidental (unintentional), initial encounter (principal); R11.2 Nausea with vomiting, unspecified; F12.10 Cannabis abuse, uncomplicated; I10 Essential (primary) hypertension; K21.9 Gastro-esophageal reflux disease without esophagitis; Z86.16 Personal history of COVID-19; Z88.5 Allergy status to narcotic agent; Z88.1 Allergy status to other antibiotic agents; Z88.8 Allergy status to other drugs, medicaments and biological substances; Z79.899 Other long term (current) drug therapy
CPT/HCPCS: 96361; 96372; 96374; 96376; 99284-25; J1630; J2405; J7030

== ENCOUNTER 2022-07-20 13:31 | Inpatient (IN) | payer OTHER ==
[~2022-07-20 13:31] MED LIST changes: +Morphine 4 MG/ML Syringe IVPUSH ONE; +Ondansetron 4 MG/2 ML SDV IV ONE; -Ondansetron 4 MG/2 ML SDV IVPUSH ONE
[2022-07-20] MEDS: Sodium Chloride 0.9% 10 ML Syringe FLUSH PRN ×2 (13:44→18:44)
[2022-07-20] MEDS ORDERED: Iopamidol 612 MG/ML 100 ML Bottle IVPUSH ONE ×2 (14:00→14:38)
[2022-07-20 14:20] LABS: ANION GAP 12.2 mEq/L (7-13); CHLORIDE,CL 101 mmol/L (98-107); SODIUM,NA 139 mmol/L (136-145)
[2022-07-20 14:22] LABS: ESTIMATED GFR 74 mL/min (>=60)
[2022-07-20 14:34] LABS: CORONAVIRUS COVID-19 NAA NEGATIVE (NEGATIVE); RESPIRATORY SYNCYTIAL VIR NAA NEGATIVE (NEGATIVE)
[2022-07-20] MEDS ORDERED: Morphine 4 MG/ML Syringe IVPUSH ONE ×2 (16:11→18:28)
[2022-07-20] MEDS ORDERED: Sodium Chloride 0.9% 1,000 ML IV ONE (18:28)
[2022-07-20] MEDS ORDERED: Ondansetron 4 MG/2 ML SDV IV ONE (18:28)
[2022-07-20] MEDS ORDERED: Acetaminophen 325 MG Tab PO PRN (19:30)
[2022-07-20] MEDS ORDERED: Albuterol/Ipratropium 3.0-0.5 MG/3 ML Neb Soln NEB PRN (19:30)
[2022-07-20] MEDS ORDERED: traMADol 50 MG Tab PO PRN (19:35)
[2022-07-20] MEDS ORDERED: Albuterol 6.7 GM Inhaler INH PRN (19:38)
[2022-07-20] MEDS ORDERED: hydrALAZINE 20 MG/ML SDV IVPUSH PRN (19:41)
[2022-07-20] MEDS ORDERED: Melatonin 3 MG Tab PO PRN (19:41)
[2022-07-20] MEDS ORDERED: Glucagon,Human Recombinant 1 MG Vial IM PRN (19:43)
[2022-07-20] MEDS ORDERED: 50% Dextrose in Water 50 ML Syringe IVPUSH PRN (19:43)
[2022-07-20] MEDS ORDERED: Famotidine 20 MG Tab PO SCH (21:00)
[2022-07-20] MEDS: Insulin Lispro Protamine/Lispro 75-25 100 Units/ML 10 ML Vial SUBCUT SCH (21:23)
[2022-07-20] MEDS: Lactated Ringers 1,000 ML IV SCH (21:25)
[2022-07-20] MEDS: Morphine 2 MG/ML SYRINGE IVPUSH PRN (21:32)
[2022-07-21] MEDS: Insulin Lispro Protamine/Lispro 75-25 100 Units/ML 10 ML Vial SUBCUT SCH ×3 (00:14→08:40)
[2022-07-21] MEDS: Ondansetron 4 MG/2 ML SDV IVPUSH PRN ×3 (03:53→22:05)
[2022-07-21] MEDS: Sodium Chloride 0.9% 10 ML Syringe FLUSH PRN ×2 (03:55→04:23)
[2022-07-21] MEDS: Morphine 2 MG/ML SYRINGE IVPUSH PRN ×3 (04:21→16:18)
[2022-07-21] MEDS: Lactated Ringers 1,000 ML IV SCH ×2 (06:15→16:24)
[2022-07-21 06:44] LABS: ANION GAP 12.3 mEq/L (7-13)
[2022-07-21 06:45] LABS: HEMOGLOBIN A1C 5.6 % (<5.7)
[2022-07-21] MEDS ORDERED: Potassium Chloride 20 MEQ in Premix Bag 1 BAG IV ONE (08:11)
[2022-07-21] MEDS ORDERED: 50% Dextrose in Water 50 ML Syringe IVPUSH PRN (08:16)
[2022-07-21] MEDS ORDERED: Glucagon,Human Recombinant 1 MG Vial IM PRN (08:16)
[2022-07-21] MEDS ORDERED: Hydrochlorothiazide 25 MG Tab PO SCH (09:00)
[2022-07-21] MEDS ORDERED: Simvastatin 40 MG Tab PO SCH (09:00)
[2022-07-21] MEDS: Lisinopril 20 MG Tab PO SCH (10:01)
[2022-07-21] MEDS: Docusate Sodium 100 MG Cap PO SCH (10:01)
[2022-07-21] MEDS: Enoxaparin 40 MG/0.4 ML Syringe SUBCUT SCH (10:02)
[2022-07-21] MEDS: Insulin Lispro 100 Units/ML 3 ML Vial SUBCUT SCH ×3 (11:54→21:14)
[2022-07-22] MEDS: Morphine 2 MG/ML SYRINGE IVPUSH PRN ×6 (00:33→22:48)
[2022-07-22] MEDS: Lactated Ringers 1,000 ML IV SCH (02:31)
[2022-07-22 07:07] LABS: ANION GAP 13.6 mEq/L (7-13)
[2022-07-22] MEDS: Ondansetron 4 MG/2 ML SDV IVPUSH PRN ×2 (07:58→18:42)
[2022-07-22] MEDS: Sodium Chloride 0.9% 10 ML Syringe FLUSH PRN ×5 (08:04→22:53)
[2022-07-22] MEDS: Insulin Lispro 100 Units/ML 3 ML Vial SUBCUT SCH ×4 (08:08→20:42)
[2022-07-22] MEDS: Lisinopril 20 MG Tab PO SCH (08:09)
[2022-07-22] MEDS: Docusate Sodium 100 MG Cap PO SCH (08:09)
[2022-07-22] MEDS: Enoxaparin 40 MG/0.4 ML Syringe SUBCUT SCH (08:13)
[2022-07-22] MEDS ORDERED: Lisinopril 5 MG Tab PO SCH (09:00)
[2022-07-22] MEDS ORDERED: Metoclopramide 10 MG/2 ML SDV IVPUSH PRN (10:46)
[2022-07-22] MEDS ORDERED: metroNIDAZOLE 250 MG Tab PO SCH (11:00)
[2022-07-22] MEDS ORDERED: Ciprofloxacin 500 MG Tab PO SCH (11:00)
[2022-07-22] MEDS: Dextrose 5%-Lactated Ringers 1,000 ML IV SCH ×2 (12:57→23:00)
[2022-07-23] MEDS: Morphine 2 MG/ML SYRINGE IVPUSH PRN ×5 (01:12→22:43)
[2022-07-23] MEDS: Sodium Chloride 0.9% 10 ML Syringe FLUSH PRN ×9 (01:12→22:42)
[2022-07-23] MEDS: Ondansetron 4 MG/2 ML SDV IVPUSH PRN (01:29)
[2022-07-23 07:04] LABS: ANION GAP 13.3 mEq/L (7-13)
[2022-07-23] MEDS ORDERED: Potassium Chloride 20 MEQ in Premix Bag 1 BAG IV ONE (07:54)
[2022-07-23] MEDS ORDERED: Benzocaine 20% Topical Spray UD MUCMEM PRN (08:51)
[2022-07-23] MEDS: Lisinopril 10 MG Tab PO SCH ×2 (08:59→09:28)
[2022-07-23] MEDS: Docusate Sodium 100 MG Cap PO SCH (09:00)
[2022-07-23] MEDS: Enoxaparin 40 MG/0.4 ML Syringe SUBCUT SCH (09:01)
[2022-07-23] MEDS: Insulin Lispro 100 Units/ML 3 ML Vial SUBCUT SCH ×4 (09:01→21:30)
[2022-07-23] MEDS ORDERED: Bisacodyl 10 MG Supp RECTAL ONE (10:30)
[2022-07-23] MEDS ORDERED: Furosemide 20 MG/2 ML VIAL IVPUSH ONE (10:30)
[2022-07-23] MEDS: Pantoprazole 40 MG Vial IVPUSH SCH (12:13)
[2022-07-23] MEDS: Dextrose 5%-Lactated Ringers 1,000 ML IV SCH (13:37)
[2022-07-24] MEDS: Dextrose 5%-Lactated Ringers 1,000 ML IV SCH (03:36)
[2022-07-24] MEDS: Ondansetron 4 MG/2 ML SDV IVPUSH PRN (04:30)
[2022-07-24] MEDS: Sodium Chloride 0.9% 10 ML Syringe FLUSH PRN (04:30)
[2022-07-24] MEDS: Morphine 2 MG/ML SYRINGE IVPUSH PRN (04:33)
[2022-07-24 07:00] LABS: ANION GAP 12.2 mEq/L (7-13)
[2022-07-24] MEDS ORDERED: Potassium Chloride 20 MEQ in Premix Bag 1 BAG IV ONE (08:17)
[2022-07-24] MEDS: Insulin Lispro 100 Units/ML 3 ML Vial SUBCUT SCH ×2 (08:28→11:39)
[2022-07-24] MEDS ORDERED: D5 1/2 NS w/ 20 mEq/L KCl 1,000 ML IV SCH (08:30)
[2022-07-24] MEDS: Docusate Sodium 100 MG Cap PO SCH (09:43)
[2022-07-24] MEDS: Enoxaparin 40 MG/0.4 ML Syringe SUBCUT SCH (09:43)
[2022-07-24] MEDS: Lisinopril 10 MG Tab PO SCH (09:43)
[2022-07-24] MEDS: Pantoprazole 40 MG Vial IVPUSH SCH (09:43)
[2022-07-24] MEDS ORDERED: Potassium Chloride 10 MEQ Tab.ER PO ONE (10:00)
[2022-07-24 13:53] VITALS: BP 112/65; PULSE 61
== END 2022-07-24 14:40 | disposition home or self-care (01) | DRG 389 ==
LOC: DL.ED 13:31 → DL.MS 18:48 → OBSVTOIN 07-23 13:08
PROVIDERS: ADMIT Internal Medicine; ATTEND Internal Medicine
DX: K56.690 Other partial intestinal obstruction (principal); K65.4 Sclerosing mesenteritis; R18.8 Other ascites; K52.9 Noninfective gastroenteritis and colitis, unspecified; J44.9 Chronic obstructive pulmonary disease, unspecified; I10 Essential (primary) hypertension; K57.30 Diverticulosis of large intestine without perforation or abscess without bleeding; Z20.822 Contact with and (suspected) exposure to COVID-19; E11.9 Type 2 diabetes mellitus without complications; K21.9 Gastro-esophageal reflux disease without esophagitis; Z87.19 Personal history of other diseases of the digestive system; Z98.890 Other specified postprocedural states; Z90.89 Acquired absence of other organs; Z90.49 Acquired absence of other specified parts of digestive tract; Z90.710 Acquired absence of both cervix and uterus; Z90.722 Acquired absence of ovaries, bilateral; Z90.5 Acquired absence of kidney; Z79.4 Long term (current) use of insulin; Z79.899 Other long term (current) drug therapy; Z79.52 Long term (current) use of systemic steroids; Z79.82 Long term (current) use of aspirin; Z88.5 Allergy status to narcotic agent; Z88.1 Allergy status to other antibiotic agents; Z88.8 Allergy status to other drugs, medicaments and biological substances; Z98.42 Cataract extraction status, left eye; Z98.41 Cataract extraction status, right eye; Z86.16 Personal history of COVID-19; Z87.891 Personal history of nicotine dependence
CPT/HCPCS: 0241U; 36410; 36415; 71045; 74018; 74177; 76856; 80053; 81001; 82150; 82947; 83036; 83605; 83690; 83735; 85025; 86140; 90686; 99222; 99232; 99239; 99284; A9270-GY; C9113; G0008; J1650; J1940; J2270; J2405; J3480; J3490; J7030; J7120; J7121; Q9967

== ENCOUNTER 2022-08-29 07:39 | Day surgery (SDC) | payer OTHER ==
[~2022-08-29 07:39] MED LIST changes: +Acetaminophen 325 MG Tab PO PRN; +Acetaminophen/Codeine 300-30 MG Tab PO PRN; +Cataract Ophth Solution EYERT ONE; -Morphine 4 MG/ML Syringe IVPUSH ONE; +Moxifloxacin 0.5% Ophth Soln 3 ML Bottle EYERT ONE; -Ondansetron 4 MG/2 ML SDV IV ONE; +Ondansetron 4 MG/2 ML SDV IVPUSH PRN; +Phenylephrine 10% Ophth Soln 5 ML Bot EYERT PRN; +Povidone-Iodine 5% Sterile Ophth Soln 30 ML Bottle EYERT ONE; +Proparacaine 0.5% Ophth Soln 15 ML Bottle EYERT ONE; -Sodium Chloride 0.9% 1,000 ML IV ONE; +Sodium Chloride 0.9% 10 ML Syringe FLUSH PRN; +Timolol Maleate 0.5% Ophth Soln 5 ML Bottle EYERT ONE; +Tropicamide 1% Ophth Soln 15 ML Bottle EYERT ONE
[2022-08-29] MEDS ORDERED: Dexamethasone 4 MG/ML SDV IVPUSH ONE (07:40)
[2022-08-29] MEDS ORDERED: Sodium Chloride 0.9% 10 ML Syringe IVPUSH ONE (07:40)
[2022-08-29] MEDS ORDERED: Midazolam 1 MG/ML 2 ML SDV IVPUSH ONE (07:40)
[2022-08-29] MEDS ORDERED: Povidone-Iodine 5% Sterile Ophth Soln 30 ML Bottle EYERT ONE (08:38)
[2022-08-29] MEDS ORDERED: Proparacaine 0.5% Ophth Soln 15 ML Bottle EYERT ONE (08:38)
[2022-08-29] MEDS ORDERED: Apraclonidine 0.5% Ophth Soln 5 ML Bot EYERT ONE (08:39)
[2022-08-29] MEDS ORDERED: Diclofenac Sodium 0.1% Ophth Soln 5 ML Bottle EYERT ONE (08:39)
[2022-08-29] MEDS ORDERED: Dexamethasone/Neomycin/Polymyxin B Ophth Oint 3.5 GM Tube EYERT ONE (08:40)
[2022-08-29] MEDS ORDERED: Lidocaine 1% 30 ML SDV ONE (08:40)
[2022-08-29] MEDS ORDERED: Vancomycin 500 MG SDV EYERT ONE (08:41)
[2022-08-29] MEDS ORDERED: Balanced Salt Solution Ophth Irrig 500 ML Bottle IOCULAR ONE (08:41)
[2022-08-29] MEDS ORDERED: Chondroitin Sulfate/Hyaluronate Sodium Ophth Inj 0.75 ML Syringe EYERT ONE (08:42)
[2022-08-29] MEDS ORDERED: Carbachol 0.01% Intraocular 1.5 ML Vial EYERT ONE (08:50)
[2022-08-29 11:54] VITALS: PULSE 75
[2022-08-29 11:55] VITALS: BP 127/64
== END 2022-08-29 11:05 | disposition home or self-care (01) ==
LOC: DL.SDS 07:39
PROVIDERS: ATTEND Ophthalmology
DX: H25.811 Combined forms of age-related cataract, right eye (principal); I10 Essential (primary) hypertension; F41.9 Anxiety disorder, unspecified; K21.9 Gastro-esophageal reflux disease without esophagitis; G43.909 Migraine, unspecified, not intractable, without status migrainosus; E78.5 Hyperlipidemia, unspecified; E05.90 Thyrotoxicosis, unspecified without thyrotoxic crisis or storm; J44.9 Chronic obstructive pulmonary disease, unspecified; G89.29 Other chronic pain; M54.50 Low back pain, unspecified; E11.9 Type 2 diabetes mellitus without complications; Z79.899 Other long term (current) drug therapy; Z87.891 Personal history of nicotine dependence
CPT/HCPCS: 00142; A9270-GY; J1100; J2250; J3370; J3490; V2632

== ENCOUNTER 2022-09-23 21:30 | Emergency (ER) | payer OTHER ==
[2022-09-23 22:42] VITALS: BP 141/76; PULSE 71
[2022-09-23] MEDS: traMADol 50 MG Tab PO ONE (23:11)
== END 2022-09-23 23:22 | disposition home or self-care (01) ==
LOC: DL.ED 21:30
DX: S83.422A Sprain of lateral collateral ligament of left knee, initial encounter (principal); M25.462 Effusion, left knee; I10 Essential (primary) hypertension; E11.9 Type 2 diabetes mellitus without complications; J45.909 Unspecified asthma, uncomplicated; Z88.5 Allergy status to narcotic agent; Z96.652 Presence of left artificial knee joint; Z88.8 Allergy status to other drugs, medicaments and biological substances; Z88.6 Allergy status to analgesic agent; Z88.1 Allergy status to other antibiotic agents; Z79.899 Other long term (current) drug therapy; Z79.82 Long term (current) use of aspirin; Z87.891 Personal history of nicotine dependence; Z86.16 Personal history of COVID-19; W18.30XA Fall on same level, unspecified, initial encounter
CPT/HCPCS: 73562-LT; 99283; A9270-GY

== ENCOUNTER 2022-10-24 20:25 | Emergency (ER) | payer OTHER ==
[2022-10-24] MEDS ORDERED: Ondansetron 4 MG/2 ML SDV IVPUSH ONE (21:37)
[2022-10-24] MEDS ORDERED: Sodium Chloride 0.9% 1,000 ML IV ONE (21:38)
[2022-10-24] MEDS ORDERED: Sodium Chloride 0.9% 10 ML Syringe FLUSH SCH (22:00)
[2022-10-24] MEDS ORDERED: Haloperidol Lactate 5 MG/ML SDV IVPUSH ONE (22:18)
[2022-10-24] MEDS ORDERED: traMADol 50 MG Tab PO ONE (22:19)
[2022-10-24 22:24] LABS: BASOPHILS PERCENT AUTO 0.6 % (0.0-1.0); EOSINOPHILS PERCENT AUTO 0.6 % (1.0-3.0); HEMATOCRIT 39.4 % (37.0-47.0); HEMOGLOBIN 13.1 g/dL (12.0-16.0); LYMPHOCYTES PERCENT AUTO 17.3 % (20.5-50.1); MEAN CORPUSCULAR HEMOGLOBIN 28.7 pg (27.0-34.0); MEAN CORPUSCULAR HGB CONC 33.2 g/dL (33.0-35.0); MEAN CORPUSCULAR VOLUME 86.4 fL (80-100); NEUTROPHILS PERCENT AUTO 72.5 % (42.2-75.2); PLATELET COUNT,PLT 278 10^3/uL (150-450); RED BLOOD CELL COUNT 4.56 10^6/uL (4.2-5.4); WHITE BLOOD CELL COUNT,WBC 7.1 10^3/uL (5.0-10.0)
[2022-10-24 22:40] LABS: ANION GAP 9.1 mEq/L (7-13); CALCIUM 8.7 mg/dL (8.5-10.1); CREATININE 0.87 mg/dL (0.55-1.02); EST CRCL DRUG DOSING (CG) 50.59 mL/min; POTASSIUM,K 4.1 mmol/L (3.5-5.1)
[2022-10-24 23:10] VITALS: BP 136/75; PULSE 79
== END 2022-10-24 23:15 | disposition home or self-care (01) ==
LOC: DL.ED 20:25
DX: G43.909 Migraine, unspecified, not intractable, without status migrainosus (principal); I10 Essential (primary) hypertension; J45.909 Unspecified asthma, uncomplicated; K21.9 Gastro-esophageal reflux disease without esophagitis; E11.9 Type 2 diabetes mellitus without complications; Z86.16 Personal history of COVID-19; Z88.5 Allergy status to narcotic agent; Z88.6 Allergy status to analgesic agent; Z88.8 Allergy status to other drugs, medicaments and biological substances; Z88.1 Allergy status to other antibiotic agents; Z79.899 Other long term (current) drug therapy
CPT/HCPCS: 36415; 70450; 80048; 85025; 93005; 96361; 96374; 96375; 99284; A9270; J1630; J2405; J7030; J3490

== ENCOUNTER 2022-11-19 17:23 | Emergency (ER) | payer OTHER ==
[2022-11-19 17:45] VITALS: PULSE 78
[2022-11-19] MEDS ORDERED: HYDROmorphone 1 MG/ML Syringe IVPUSH ONE (17:48)
[2022-11-19] MEDS ORDERED: Ondansetron 4 MG/2 ML SDV IV ONE (17:48)
[2022-11-19] MEDS ORDERED: Sodium Chloride 0.9% 1,000 ML IV ONE (17:49)
[2022-11-19] MEDS ORDERED: Iopamidol 612 MG/ML 100 ML Bottle IVPUSH ONE (17:49)
[2022-11-19 18:16] LABS: BASOPHILS PERCENT AUTO 0.7 % (0.0-1.0); EOSINOPHILS PERCENT AUTO 1.4 % (1.0-3.0); HEMATOCRIT 40.3 % (37.0-47.0); HEMOGLOBIN 13.3 g/dL (12.0-16.0); LYMPHOCYTES PERCENT AUTO 17.7 % (20.5-50.1); MEAN CORPUSCULAR HEMOGLOBIN 28.9 pg (27.0-34.0); MEAN CORPUSCULAR VOLUME 87.4 fL (80-100); MONOCYTES PERCENT AUTO 8.3 % (2-8); NEUTROPHILS PERCENT AUTO 71.9 % (42.2-75.2); PLATELET COUNT,PLT 226 10^3/uL (150-450); RED BLOOD CELL COUNT 4.61 10^6/uL (4.2-5.4); WHITE BLOOD CELL COUNT,WBC 4.4 10^3/uL (5.0-10.0)
[2022-11-19 18:38] LABS: A/G RATIO 1.1; ALBUMIN 3.7 g/dL (3.4-5.0); ANION GAP 8.7 mEq/L (7-13); BILIRUBIN TOTAL 0.6 mg/dL (0.2-1.0); BUN/CREATININE RATIO 16.5 (No establ ref range); C-REACTIVE PROTEIN 0.9 mg/dL (0.0-0.9); CALCIUM 8.6 mg/dL (8.5-10.1); CREATININE 0.85 mg/dL (0.55-1.02); EST CRCL DRUG DOSING (CG) 51.78 mL/min; POTASSIUM,K 3.7 mmol/L (3.5-5.1)
[2022-11-19 18:41] LABS: LACTIC ACID 0.5 mmol/L (0.4-2.0)
[2022-11-19 20:35] VITALS: BP 116/75
== END 2022-11-19 20:25 | disposition home or self-care (01) ==
LOC: DL.ED 17:23
DX: K57.30 Diverticulosis of large intestine without perforation or abscess without bleeding (principal); R11.2 Nausea with vomiting, unspecified; I10 Essential (primary) hypertension; K21.9 Gastro-esophageal reflux disease without esophagitis; J45.909 Unspecified asthma, uncomplicated; Z88.5 Allergy status to narcotic agent; Z88.1 Allergy status to other antibiotic agents; Z88.6 Allergy status to analgesic agent; Z79.899 Other long term (current) drug therapy; Z79.82 Long term (current) use of aspirin; Z86.16 Personal history of COVID-19
CPT/HCPCS: 36415; 74177; 80053; 82150; 83605; 85025; 86140; 87040; 96361; 96374; 96375; 99284; 99284-25; J1170; J2405; J7030; Q9967

== ENCOUNTER 2023-06-23 17:32 | Emergency (ER) | payer OTHER ==
[2023-06-23] MEDS ORDERED: cefTRIAXone 2 GM Vial IVPUSH ONE (18:29)
[2023-06-23] MEDS ORDERED: Sodium Chloride 0.9% 10 ML Syringe FLUSH PRN (18:33)
[2023-06-23 18:42] VITALS: BP 129/87; PULSE 96
== END 2023-06-23 19:22 | disposition home or self-care (01) ==
LOC: DL.ED 17:32
DX: J18.9 Pneumonia, unspecified organism (principal); E11.9 Type 2 diabetes mellitus without complications; I10 Essential (primary) hypertension; Z86.16 Personal history of COVID-19; Z79.82 Long term (current) use of aspirin; Z79.899 Other long term (current) drug therapy; Z88.8 Allergy status to other drugs, medicaments and biological substances; Z88.5 Allergy status to narcotic agent; Z88.6 Allergy status to analgesic agent; Z88.1 Allergy status to other antibiotic agents
CPT/HCPCS: 96374; 99283; 99283-25; J0696; J3490

== ENCOUNTER 2023-06-25 09:35 | Emergency (ER) | payer BC, OTHER ==
[2023-06-25 09:47] VITALS: BP 121/74; PULSE 90
[2023-06-25] MEDS ORDERED: Sodium Chloride 0.9% 10 ML Syringe FLUSH PRN (09:52)
[2023-06-25] MEDS ORDERED: methylPREDNISolone Sodium Succinate 125 MG/2 ML SDV IVPUSH ONE (09:54)
[2023-06-25] MEDS ORDERED: Albuterol/Ipratropium 3.0-0.5 MG/3 ML Neb Soln NEB ONE (09:54)
[2023-06-25] MEDS ORDERED: Benzonatate 100 MG Cap PO ONE (09:55)
[2023-06-25] MEDS ORDERED: cefTRIAXone 2 GM Vial IVPUSH ONE (09:55)
[2023-06-25] MEDS ORDERED: Azithromycin 500 MG in Sodium Chloride 0.9% 250 ML IV ONE (09:55)
[2023-06-25 10:14] LABS: BASOPHILS PERCENT AUTO 0.8 % (0.0-1.0); HEMOGLOBIN 14.3 g/dL (12.0-16.0); LYMPHOCYTES PERCENT AUTO 13.4 % (20.5-50.1); MEAN CORPUSCULAR HEMOGLOBIN 28.9 pg (27.0-34.0); MEAN CORPUSCULAR HGB CONC 33.3 g/dL (33.0-35.0); MONOCYTES PERCENT AUTO 6.1 % (2-8); NEUTROPHILS PERCENT AUTO 74.7 % (42.2-75.2); PLATELET COUNT,PLT 287 10^3/uL (150-450); RED BLOOD CELL COUNT 4.94 10^6/uL (4.2-5.4); WHITE BLOOD CELL COUNT,WBC 7.9 10^3/uL (5.0-10.0)
[2023-06-25 10:36] LABS: A/G RATIO 0.9; ALANINE AMINOTRANSFERASE,ALT 27 U/L (14-59); ALBUMIN 3.4 g/dL (3.4-5.0); ALKALINE PHOSPHATASE 80 U/L (46-116); ANION GAP 14.6 mEq/L (7-13); ASPARTATE AMNIOTRANSFERASE,AST 18 U/L (15-37); BILIRUBIN TOTAL 0.6 mg/dL (0.2-1.0); BLOOD UREA NITROGEN,BUN 10 mg/dL (7-18); BUN/CREATININE RATIO 13.2 (No establ ref range); CALCIUM 8.7 mg/dL (8.5-10.1); CARBON DIOXIDE,CO2 27 mmol/L (21-32); CHLORIDE,CL 101 mmol/L (98-107); CREATININE 0.76 mg/dL (0.55-1.02); EST CRCL DRUG DOSING (CG) 59.92 mL/min; ESTIMATED GFR 88 mL/min (>=60); GLUCOSE RANDOM 119 mg/dL (70-99); POTASSIUM,K 3.6 mmol/L (3.5-5.1); PROTEIN TOTAL,TP 7.4 g/dL (6.4-8.2); SODIUM,NA 139 mmol/L (136-145)
[2023-06-25 10:39] LABS: LACTIC ACID 1.5 mmol/L (0.4-2.0)
[2023-06-25 10:50] LABS: B-TYPE NATRIURETIC PEPTIDE,BNP 10 pg/ml (0-100)
[2023-06-25] MEDS ORDERED: Iopamidol 755 Mg/ML 100 ML Bottle IVPUSH ONE (10:57)
[2023-06-25 11:05] LABS: CORONAVIRUS COVID-19 NAA NEGATIVE (NEGATIVE); INFLUENZA A NAA NEGATIVE (NEGATIVE); INFLUENZA B NAA NEGATIVE (NEGATIVE); RESPIRATORY SYNCYTIAL VIR NAA NEGATIVE (NEGATIVE)
== END 2023-06-25 12:07 | disposition home or self-care (01) ==
LOC: DL.ED 09:35
DX: J44.1 Chronic obstructive pulmonary disease with (acute) exacerbation (principal); J98.01 Acute bronchospasm; R91.1 Solitary pulmonary nodule; I10 Essential (primary) hypertension; K21.9 Gastro-esophageal reflux disease without esophagitis; E11.9 Type 2 diabetes mellitus without complications; Z20.822 Contact with and (suspected) exposure to COVID-19; Z86.16 Personal history of COVID-19; Z90.49 Acquired absence of other specified parts of digestive tract; Z90.710 Acquired absence of both cervix and uterus; Z79.82 Long term (current) use of aspirin; Z79.84 Long term (current) use of oral hypoglycemic drugs; Z88.5 Allergy status to narcotic agent; Z88.6 Allergy status to analgesic agent; Z88.1 Allergy status to other antibiotic agents; Z88.8 Allergy status to other drugs, medicaments and biological substances
CPT/HCPCS: 0241U; 36415; 71250; 80053; 83605; 83880; 84145; 85025; 87040; 96365; 96375; 99284; 99285-25; A9270-GY; J0456; J0696; J2930; J3490; J7050; J7620-GY

== ENCOUNTER 2023-09-15 16:34 | Emergency (ER) | payer BC, OTHER ==
[2023-09-15 16:44] VITALS: BP 145/80; PULSE 80
[2023-09-15] MEDS: Orphenadrine 60 MG/2 ML Inj IM ONE (17:16)
[2023-09-15] MEDS: Acetaminophen 500 MG Tab PO ONE (17:17)
[2023-09-15] MEDS ORDERED: Naloxone 2 MG/2 ML Syringe IVPUSH PRN (17:45)
[2023-09-15] MEDS: HYDROmorphone 1 MG/ML Syringe SUBCUT ONE (18:11)
== END 2023-09-15 18:50 | disposition home or self-care (01) ==
LOC: DL.ED 16:34
DX: M54.41 Lumbago with sciatica, right side (principal); E11.9 Type 2 diabetes mellitus without complications; I10 Essential (primary) hypertension; J44.89 Other specified chronic obstructive pulmonary disease; Z79.82 Long term (current) use of aspirin; Z88.6 Allergy status to analgesic agent; Z88.8 Allergy status to other drugs, medicaments and biological substances; Z88.5 Allergy status to narcotic agent; Z88.1 Allergy status to other antibiotic agents; Z79.899 Other long term (current) drug therapy; Z86.16 Personal history of COVID-19; Z90.49 Acquired absence of other specified parts of digestive tract; Z90.710 Acquired absence of both cervix and uterus; Z87.891 Personal history of nicotine dependence
CPT/HCPCS: 72100; 96372; 99284; A9270; J1170; J2360; 99283

== ENCOUNTER 2024-03-04 14:06 | Emergency (ER) | payer BC, OTHER ==
[2024-03-04 14:04] VITALS: BP 134/62; PULSE 71
[2024-03-04] MEDS: Lidocaine 2% 20 ML MDV ONE (14:07)
== END 2024-03-04 14:38 | disposition home or self-care (01) ==
LOC: DL.ED 14:06
DX: G43.909 Migraine, unspecified, not intractable, without status migrainosus (principal); I10 Essential (primary) hypertension; J44.9 Chronic obstructive pulmonary disease, unspecified; E11.9 Type 2 diabetes mellitus without complications; Z86.16 Personal history of COVID-19; Z90.49 Acquired absence of other specified parts of digestive tract; Z90.710 Acquired absence of both cervix and uterus; Z79.899 Other long term (current) drug therapy; Z79.82 Long term (current) use of aspirin; Z88.1 Allergy status to other antibiotic agents; Z88.6 Allergy status to analgesic agent; Z88.8 Allergy status to other drugs, medicaments and biological substances; Z88.5 Allergy status to narcotic agent
CPT/HCPCS: 64450; 99283; 99284-25; J3490